=== PATIENT | female | born 1960 | race African-American/Black ===

== ENCOUNTER 2018-09-10 21:46 | Inpatient (IN) | payer OTHER | END 2018-09-14 18:32 | disposition other institution (70) | LOC: YASAS 21:46 → Y6N 23:57 ==

== ENCOUNTER 2018-09-14 18:47 | Inpatient (IN) | payer OTHER ==
[2018-09-14] MEDS ORDERED: NICOTINE POLACRILEX 2 MG GUM BUC PRN (22:11)
[2018-09-14] MEDS ORDERED: MENTHOL/PHENOL 1 EACH UD MM PRN (22:11)
[2018-09-14] MEDS ORDERED: ACETAMINOPHEN 325 MG TABLET (FP) PO PRN (22:11)
[2018-09-14] MEDS ORDERED: P-EPHED 60MG/TRIPROLIDI 2.5MG TABLET PO PRN (22:11)
[2018-09-14] MEDS ORDERED: guaiFENesin 200 MG/10 ML 10 ML UNIT-DOSE CUPS PO PRN (22:11)
[2018-09-14] MEDS ORDERED: IBUPROFEN 400 MG TABLET (FP) PO PRN (22:11)
[2018-09-14] MEDS ORDERED: MAGNESIUM HYDROX 2400MG/30ML ORAL SUSPENSION 30 ML CUP PO PRN (22:11)
[2018-09-14] MEDS ORDERED: LOPERAMIDE HCL 2 MG CAPSULE PO PRN (22:11)
[2018-09-14] MEDS ORDERED: MAGNESIUM CITRATE 300 ML BOTTLE PO PRN (22:11)
--- NOTE | 2018-09-14 22:11 | HP ---
[facility] Rehab Assess/Revision - Admission History Admitted to Rehab from: [address] Date of Admission to Rehab: 09/14/2018 - Findings Detox History & Physical reviewed: Yes Concur with findings: Yes Comments/Additional Findings: transfer from [facility] for continuation of care. Inpatient Rehab Admission - Rehab Decision to Admit Inpatient rehab admission?: Yes - Initial Determination Are CD services needed?: Yes Free of communicable disease: Yes Not in need of hospitalization: Yes - Rehab Admission Criteria Previous failed treatment: Yes Poor recovery environment: Yes Comorbidities: Yes Lacks judgement: No Patient is meeting Inpatient Rehab admission criteria:: Yes
[2018-09-14] MEDS ORDERED: ARIPiprazole 10 MG TABLET PO ONE (22:15)
[2018-09-14] MEDS ORDERED: INSULIN (NOVOLOG) ASPART 100 UNITS/ML 10ML VIAL ONE (22:27)
[2018-09-14] MEDS: INSULIN SLIDING SCALE (NOVOLOG) 1 VIAL SQ SCH (22:27)
[2018-09-15] MEDS ORDERED: PT OWN MED DRAWER 7, Y5N ONE (05:54)
[2018-09-15] MEDS: sitaGLIPtin PHOSPHATE 100 MG TABLET (FP) PO SCH (07:12)
--- NOTE | 2018-09-15 09:49 | CONSULT ---
[facility] Psychiatric Consult - Data Date of interview: 09/15/18 Admission source: [facility] Identifying data: Patient is a 58 year old single female, father of three, unemployed, and currently domiciled. This is one of multiple Substance Abuse History: Smoking Cessation. Smoking history: Current every day smoker. Have you smoked in the past 12 months: Yes. Aproximately how many cigarettes per day: 4. Hx Chewing Tobacco Use: No. Initiated information on smoking cessation: Yes. 'Breaking Loose' booklet given: 09/11/18. - Substance & Tx. History. Hx Alcohol Use: Yes. Hx Substance Use: Yes. Substance Use Type : Alcohol, Cocaine. Hx Substance Use Treatment: Yes ([facility]). - Substances abused. Alcohol. Substance route: Oral. Frequency: Daily. Amount used: liquor- 1 pint, beer- 1 six pack. Age of first use: 12. Date of last use: 09/09/18. Cocaine. Frequency: Daily. Amount used: $80. Age of first use: 18. Date of last use: 09/10/18. Crack. Substance route: Smoking. Frequency: Daily. Amount used: $80 worth. Age of first use: 18. Date of last use: 09/09/18 Medical History: Significant for bronchial asthma, dyslipidemia, type 2 diabetes mellitus, history of cerebrovascular accident and surgeries( thyroidectomy, total hysterectomy for uterine cancer). Psychiatric History: Patient's first psychiatric contact was in 1994 after she saw an outpatient psychiatrist due to mood dyregulation and was than started on zoloft. Ms. Campbell reports history of three psychiatric hospitalizations ( [facility] in [place] [facility], [facility] and [facility]). States all three hospitalizations were due to suicide attempts. Ms. Campbell is currently provided with outpatient psychiatric care at [facility] and is prescribed Abilify 20mg + Prozac 10mg + Trazodone 300mg (confirmed with external records). Patient was lethargic while in detox and therefore trazodone was held. Today patient presents as mildly fatigue but is coherent, alert and oriented X3. She reports difficulty sleeping and is requesting to resume trazodone. Physical/Sexual Abuse/Trauma History: denies. Mental Status Exam - Mental Status Exam Alert and Oriented to: Time, Place, Person Cognitive Function: Good Patient Appearance: Well Groomed Mood: Euthymic Affect: Mood Congruent Patient Behavior: Fatigued (states she is fatigue due to lack of sleep. ) Speech Pattern: Appropriate Voice Loudness: Moderately Soft/Quiet Thought Process: Goal Oriented Thought Disorder: Not Present Hallucinations: Denies Suicidal Ideation: Denies Homicidal Ideation: Denies Insight/Judgement: Poor Sleep: Poorly Appetite: Fair Muscle strength/Tone: Normal Gait/Station: Normal Psychiatric Findings - Problem List ([place] 1, 2,3) (1) Alcohol dependence Current Visit: Yes Status: Acute (2) Substance induced mood disorder Current Visit: Yes Status: Acute (3) Substance-induced sleep disorder Current Visit: Yes Status: Acute (4) Bipolar II disorder Current Visit: Yes Status: Chronic (5) Cocaine dependence Current Visit: Yes Status: Chronic Qualifiers: Substance use status: uncomplicated Qualified Code(s): F14.20 - Cocaine dependence, uncomplicated (6) Nicotine dependence Current Visit: Yes Status: Chronic Qualifiers: Nicotine product type: cigarettes Substance use status: uncomplicated Qualified Code(s): F17.210 - Nicotine dependence, cigarettes, uncomplicated - Initial Treatment Plan Initial Treatment Plan: Psychoeducation provided. Rehab in progress. Will continue Abilify 20mg + Prozac 10mg. Will order Trazodone 100mg. Benefits and side effects discussed. Verbal consent given.
[2018-09-15] MEDS ORDERED: FLUoxetine HCL 10 MG CAPSULE (FP) PO SCH (10:00)
[2018-09-15] MEDS: NICOTINE 14 MG/24 HOURS TOPICAL PATCH TD SCH (10:07)
[2018-09-15] MEDS: PRENATAL VITAMINS W/ FOLIC ACID TABLET (FP) PO SCH (10:07)
[2018-09-15] MEDS: FLUoxetine HCL 10 MG CAPSULE (FP) PO SCH (11:00)
[2018-09-15] MEDS ORDERED: INSULIN (NOVOLOG) ASPART 100 UNITS/ML 10ML VIAL ONE (11:32)
[2018-09-15] MEDS: INSULIN SLIDING SCALE (NOVOLOG) 1 VIAL SQ SCH ×3 (12:10→21:21)
[2018-09-15] MEDS: traZODone HCL 100 MG TABLET (FP) PO SCH (21:14)
[2018-09-15] MEDS: THIAMINE HCL 100 MG TABLET (FP) PO SCH (21:14)
[2018-09-15] MEDS: ARIPiprazole 10 MG TABLET PO SCH (21:15)
[2018-09-16] MEDS: INSULIN SLIDING SCALE (NOVOLOG) 1 VIAL SQ SCH ×4 (07:39→21:23)
[2018-09-16] MEDS: sitaGLIPtin PHOSPHATE 100 MG TABLET (FP) PO SCH (07:40)
[2018-09-16] MEDS ORDERED: INSULIN (NOVOLOG) ASPART 100 UNITS/ML 10ML VIAL ONE ×2 (08:00→11:36)
[2018-09-16] MEDS ORDERED: FLUoxetine HCL 10 MG CAPSULE (FP) PO SCH (10:00)
[2018-09-16] MEDS: PRENATAL VITAMINS W/ FOLIC ACID TABLET (FP) PO SCH (10:21)
[2018-09-16] MEDS: NICOTINE 14 MG/24 HOURS TOPICAL PATCH TD SCH (10:21)
[2018-09-16] MEDS: FLUoxetine HCL 10 MG CAPSULE (FP) PO SCH (10:21)
[2018-09-16] MEDS: MAG HYDROX/AL HYDROX/SIMETH 30 ML UNIT-DOSE CUP PO PRN (17:23)
[2018-09-16] MEDS ORDERED: ONDANSETRON *ODT* 4 MG TABLET SL PRN (17:38)
[2018-09-16] MEDS: MELATONIN 5 MG TABLETS PO PRN (21:21)
[2018-09-16] MEDS: THIAMINE HCL 100 MG TABLET (FP) PO SCH (21:21)
[2018-09-16] MEDS: ARIPiprazole 10 MG TABLET PO SCH (21:24)
[2018-09-16] MEDS: traZODone HCL 100 MG TABLET (FP) PO SCH (21:24)
[2018-09-17] MEDS: sitaGLIPtin PHOSPHATE 100 MG TABLET (FP) PO SCH (07:49)
[2018-09-17] MEDS: INSULIN SLIDING SCALE (NOVOLOG) 1 VIAL SQ SCH ×4 (07:49→21:06)
[2018-09-17] MEDS: NICOTINE 14 MG/24 HOURS TOPICAL PATCH TD SCH (09:05)
[2018-09-17] MEDS: PRENATAL VITAMINS W/ FOLIC ACID TABLET (FP) PO SCH (09:06)
[2018-09-17] MEDS: FLUoxetine HCL 10 MG CAPSULE (FP) PO SCH (09:06)
[2018-09-17] MEDS ORDERED: INSULIN (NOVOLOG) ASPART 100 UNITS/ML 10ML VIAL ONE (16:39)
[2018-09-17] MEDS: ARIPiprazole 10 MG TABLET PO SCH (21:07)
[2018-09-17] MEDS: THIAMINE HCL 100 MG TABLET (FP) PO SCH (21:07)
[2018-09-17] MEDS: traZODone HCL 100 MG TABLET (FP) PO SCH (21:07)
[2018-09-18] MEDS: INSULIN SLIDING SCALE (NOVOLOG) 1 VIAL SQ SCH ×4 (06:25→21:32)
[2018-09-18] MEDS: sitaGLIPtin PHOSPHATE 100 MG TABLET (FP) PO SCH (06:26)
[2018-09-18] MEDS: PRENATAL VITAMINS W/ FOLIC ACID TABLET (FP) PO SCH (09:08)
[2018-09-18] MEDS: NICOTINE 14 MG/24 HOURS TOPICAL PATCH TD SCH (09:08)
[2018-09-18] MEDS: FLUoxetine HCL 10 MG CAPSULE (FP) PO SCH (09:08)
[2018-09-18] MEDS ORDERED: INSULIN (NOVOLOG) ASPART 100 UNITS/ML 10ML VIAL ONE (12:03)
[2018-09-18] MEDS: THIAMINE HCL 100 MG TABLET (FP) PO SCH (21:29)
[2018-09-18] MEDS: ARIPiprazole 10 MG TABLET PO SCH (21:30)
[2018-09-18] MEDS: traZODone HCL 100 MG TABLET (FP) PO SCH (21:30)
[2018-09-18] MEDS ORDERED: PT OWN MED DRAWER 7, Y5N ONE (22:51)
[2018-09-19] MEDS ORDERED: PT OWN MED DRAWER 7, Y5N ONE ×2 (05:48→21:13)
[2018-09-19] MEDS: sitaGLIPtin PHOSPHATE 100 MG TABLET (FP) PO SCH (06:31)
[2018-09-19] MEDS: INSULIN SLIDING SCALE (NOVOLOG) 1 VIAL SQ SCH ×3 (06:31→16:59)
[2018-09-19] MEDS: PRENATAL VITAMINS W/ FOLIC ACID TABLET (FP) PO SCH (09:50)
[2018-09-19] MEDS: FLUoxetine HCL 10 MG CAPSULE (FP) PO SCH (09:50)
[2018-09-19] MEDS: NICOTINE 14 MG/24 HOURS TOPICAL PATCH TD SCH (09:50)
--- NOTE | 2018-09-19 13:47 | PN ---
[facility] Progress Note Note: Patient does not want BGM 4x/day. States she only does it before breakfast and before lunch when she is home. BGM changed to before meals only, insulin coverage increased. Will continue to monitor. Laboratory Last Values POC Glucometer 191 UNITS (80-120) 09/19/18 11:37 Laboratory 09/14/18 09/15/18 09/15/18 22:26 06:56 11:28 POC Glucometer 201 UNITS UNITS 199 UNITS UNITS 240 UNITS UNITS (80-120) (80-120) (80-120) 09/15/18 09/15/18 09/16/18 17:15 21:20 07:38 POC Glucometer 237 UNITS UNITS 222 UNITS UNITS 207 UNITS UNITS (80-120) (80-120) (80-120) 09/16/18 09/16/18 09/16/18 11:34 16:54 21:22 POC Glucometer 262 UNITS UNITS 230 UNITS UNITS 163 UNITS UNITS (80-120) (80-120) (80-120) 09/17/18 09/17/18 09/17/18 07:48 11:51 16:38 POC Glucometer 172 UNITS UNITS 196 UNITS UNITS 225 UNITS UNITS (80-120) (80-120) (80-120) 09/17/18 09/18/18 09/18/18 21:04 06:25 11:49 POC Glucometer 225 UNITS UNITS 118 UNITS UNITS 242 UNITS UNITS (80-120) (80-120) (80-120) 09/18/18 09/18/18 09/19/18 17:09 21:31 06:29 POC Glucometer 166 UNITS UNITS 159 UNITS UNITS 179 UNITS UNITS (80-120) (80-120) (80-120) 09/19/18 11:37 POC Glucometer 191 UNITS UNITS (80-120)
[2018-09-19] MEDS: traZODone HCL 100 MG TABLET (FP) PO SCH (21:37)
[2018-09-19] MEDS: THIAMINE HCL 100 MG TABLET (FP) PO SCH (21:37)
[2018-09-19] MEDS: ARIPiprazole 10 MG TABLET PO SCH (21:37)
[2018-09-20] MEDS: sitaGLIPtin PHOSPHATE 100 MG TABLET (FP) PO SCH (06:33)
[2018-09-20] MEDS: INSULIN SLIDING SCALE (NOVOLOG) 1 VIAL SQ SCH ×3 (06:36→17:08)
[2018-09-20] MEDS: PRENATAL VITAMINS W/ FOLIC ACID TABLET (FP) PO SCH (09:01)
[2018-09-20] MEDS: FLUoxetine HCL 10 MG CAPSULE (FP) PO SCH (09:01)
[2018-09-20] MEDS: NICOTINE 14 MG/24 HOURS TOPICAL PATCH TD SCH (09:02)
[2018-09-20] MEDS ORDERED: FLUCONAZOLE 50 MG TABLET PO ONE (10:30)
--- NOTE | 2018-09-20 10:30 | PN ---
[facility] Progress Note Note: Client c/o genital rash and yeast infection. Client is diabetic. FS recently reduced to 3x a day at patient request. However, insulin coverage increased. PLAN: treated yeast infection empirically with diflucan and nystatin cream for rash. Explained to client the need to have tight control on Blood glucose so that although fingersticks were reduced, it was important to cover blood glucose that wa > 150. Client understood and accepted teaching, however, maintains her right to refuse insulin at any time. Explained the consequences of refusing insulin and client understood teaching. Will continue to monitor. Also discussed with client reducing intake of simple carbohydrates. Client agreed. Laboratory Last Values POC Glucometer 171 UNITS (80-120) 09/20/18 06:32 Laboratory Tests 09/14/18 09/15/18 09/15/18 22:26 06:56 11:28 POC Glucometer 201 199 240 09/15/18 09/15/18 09/16/18 17:15 21:20 07:38 POC Glucometer 237 222 207 09/16/18 09/16/18 09/16/18 11:34 16:54 21:22 POC Glucometer 262 230 163 09/17/18 09/17/18 09/17/18 07:48 11:51 16:38 POC Glucometer 172 196 225 09/17/18 09/18/18 09/18/18 21:04 06:25 11:49 POC Glucometer 225 118 242 09/18/18 09/18/18 09/19/18 17:09 21:31 06:29 POC Glucometer 166 159 179 09/19/18 09/19/18 09/20/18 11:37 16:56 06:32 POC Glucometer 191 166 171
[2018-09-20] MEDS ORDERED: INSULIN (NOVOLOG) ASPART 100 UNITS/ML 10ML VIAL ONE ×2 (11:45→16:33)
[2018-09-20] MEDS: traZODone HCL 100 MG TABLET (FP) PO SCH (21:37)
[2018-09-20] MEDS: THIAMINE HCL 100 MG TABLET (FP) PO SCH (21:37)
[2018-09-20] MEDS: ARIPiprazole 10 MG TABLET PO SCH (21:37)
[2018-09-20] MEDS: NYSTATIN 100,000 UNIT/GM TOPICAL CREAM 15 GM TUBE TP SCH (21:38)
[2018-09-21] MEDS ORDERED: PT OWN MED DRAWER 7, Y5N ONE ×3 (03:12→21:34)
[2018-09-21] MEDS: sitaGLIPtin PHOSPHATE 100 MG TABLET (FP) PO SCH (06:38)
[2018-09-21] MEDS: INSULIN SLIDING SCALE (NOVOLOG) 1 VIAL SQ SCH ×3 (06:39→18:01)
[2018-09-21] MEDS: NYSTATIN 100,000 UNIT/GM TOPICAL CREAM 15 GM TUBE TP SCH ×2 (10:08→21:34)
[2018-09-21] MEDS: FLUoxetine HCL 10 MG CAPSULE (FP) PO SCH (10:08)
[2018-09-21] MEDS: PRENATAL VITAMINS W/ FOLIC ACID TABLET (FP) PO SCH (10:08)
[2018-09-21] MEDS: NICOTINE 14 MG/24 HOURS TOPICAL PATCH TD SCH (10:09)
--- NOTE | 2018-09-21 11:34 | PN ---
S Progress Note Note: insulin coverage tid ac bgm can not be ordered as tid ac but ac see physician instruction bgm tid ac bgm average below 200 over the past few days patient reports doing well with the diabetes management
[2018-09-21] MEDS: THIAMINE HCL 100 MG TABLET (FP) PO SCH (21:32)
[2018-09-21] MEDS: traZODone HCL 100 MG TABLET (FP) PO SCH (21:32)
[2018-09-21] MEDS: ARIPiprazole 10 MG TABLET PO SCH (21:32)
[2018-09-22] MEDS: sitaGLIPtin PHOSPHATE 100 MG TABLET (FP) PO SCH (06:35)
[2018-09-22] MEDS: INSULIN SLIDING SCALE (NOVOLOG) 1 VIAL SQ SCH ×3 (08:02→16:44)
[2018-09-22] MEDS ORDERED: PT OWN MED DRAWER 7, Y5N ONE (08:45)
[2018-09-22] MEDS: NICOTINE 14 MG/24 HOURS TOPICAL PATCH TD SCH (09:44)
[2018-09-22] MEDS: PRENATAL VITAMINS W/ FOLIC ACID TABLET (FP) PO SCH (09:44)
[2018-09-22] MEDS: NYSTATIN 100,000 UNIT/GM TOPICAL CREAM 15 GM TUBE TP SCH ×2 (09:44→21:02)
[2018-09-22] MEDS: FLUoxetine HCL 10 MG CAPSULE (FP) PO SCH (09:44)
--- NOTE | 2018-09-22 10:13 | PN ---
[facility] Progress Note Note: Laboratory Last Values Potassium 4.0 mmol/L (3.5-5.1) 09/22/18 08:20 POC Glucometer 136 UNITS (80-120) 09/22/18 06:34 Lab Results Potassium 4.0 mmol/L (3.5-5.1) 09/22/18 08:20 lab noted [id number] pending
[2018-09-22] MEDS: MELATONIN 5 MG TABLETS PO PRN (21:02)
[2018-09-22] MEDS: traZODone HCL 100 MG TABLET (FP) PO SCH (21:02)
[2018-09-22] MEDS: ARIPiprazole 10 MG TABLET PO SCH (21:02)
[2018-09-22] MEDS: THIAMINE HCL 100 MG TABLET (FP) PO SCH (21:02)
[2018-09-23] MEDS: sitaGLIPtin PHOSPHATE 100 MG TABLET (FP) PO SCH (06:49)
[2018-09-23] MEDS: INSULIN SLIDING SCALE (NOVOLOG) 1 VIAL SQ SCH ×3 (06:50→16:55)
[2018-09-23] MEDS ORDERED: PT OWN MED DRAWER 7, Y5N ONE (08:52)
[2018-09-23] MEDS: PRENATAL VITAMINS W/ FOLIC ACID TABLET (FP) PO SCH (09:57)
[2018-09-23] MEDS: NICOTINE 14 MG/24 HOURS TOPICAL PATCH TD SCH (09:57)
[2018-09-23] MEDS: FLUoxetine HCL 10 MG CAPSULE (FP) PO SCH (09:57)
[2018-09-23] MEDS: NYSTATIN 100,000 UNIT/GM TOPICAL CREAM 15 GM TUBE TP SCH ×2 (09:57→21:10)
--- NOTE | 2018-09-23 16:02 | PN ---
Psychiatric Progress Note Vital Signs: Vital Signs Period Temp Pulse Resp BP Sys/De La Paz Pulse Ox Last 24 Hr 98.1 F 78-86 18-18 98-110/65-75 Date of Session: 09/23/18 Chief Complaint:: " I still have problem sleeping at night. My trazodone is too low ". HPI: Called to address this patient's complaint of refractory insomnia and to adjust dose of trazodone. Hospital course is otherwise benign. Patient is doing well. ROS: Unremarkable. Current Medications: Active Medications Generic Name Dose Route Start Last Admin Trade Name Freq PRN Reason Stop Dose Admin Acetaminophen 650 mg 09/14/18 22:11 Tylenol - PO Q4H PRN FEVER Al Hydroxide/Mg Hydroxide 30 ml 09/14/18 22:11 09/16/18 17:23 Mylanta Oral Suspension - PO 30 ml Q6H PRN Administration DYSPEPSIA Aripiprazole 20 mg 09/15/18 22:00 09/22/18 21:02 Abilify PO 20 mg HS FELA Administration Eucalyptus/Menthol/Phenol/Sorbitol 1 each 09/14/18 22:11 Cepastat Lozenge - MM Q4H PRN SORE THROAT Fluoxetine HCl 10 mg 09/15/18 10:15 09/23/18 09:57 Prozac - PO 10 mg DAILY FELA Administration Guaifenesin 10 ml 09/14/18 22:11 Robitussin - PO Q6H PRN COUGH Ibuprofen 400 mg 09/14/18 22:11 Motrin - PO Q6H PRN Pain Level 4-6 Insulin Aspart 1 vial 09/19/18 16:30 09/23/18 11:59 Novolog Vial Sliding Scale - SQ Not Given [facility] Protocol Loperamide HCl 4 mg 09/14/18 22:11 Imodium - PO Q6H PRN DIARRHEA Magnesium Citrate 300 ml 09/14/18 22:11 09/17/18 09:08 Citroma - PO 300 ml Q48H PRN Administration CONSTIPATION Magnesium Hydroxide 30 ml 09/14/18 22:11 Milk Of Magnesia - PO DAILY PRN CONSTIPATION Melatonin 5 mg 09/14/18 22:00 09/22/18 21:02 Melatonin PO 5 mg HS PRN Administration INSOMNIA Metformin HCl 850 mg 09/15/18 16:30 06/08/19 06:49 Glucophage - PO 850 mg BID@0700,1630 FELA Administration Nicotine 14 mg 09/15/18 10:00 09/23/18 09:57 Nicoderm Patch - TD Not Given DAILY FELA Nicotine Polacrilex 2 mg 09/14/18 22:11 Nicorette Gum - BUC Q2H PRN NICOTINE REPLACEMENT RX Nystatin 1 applic 09/20/18 22:00 09/23/18 09:57 Mycostatin Cream - TP Not Given BID FELA Ondansetron HCl 8 mg 09/16/18 17:38 09/16/18 17:49 Zofran Odt - SL 8 mg Q8H PRN Administration NAUSEA Multivit/Folic Acid/Iron 1 tab 09/15/18 10:00 09/23/18 09:57 Vitamins (Sjr) - PO 1 tab DAILY FELA Administration Pseudoephedrine/Triprolidine 1 combo 09/14/18 22:11 Actifed - PO TID PRN NASAL CONGESTION Sitagliptin Phosphate 100 mg 09/15/18 07:00 09/23/18 06:49 Januvia - PO 100 mg DAILY@0700 FELA Administration Thiamine HCl 100 mg 09/15/18 22:00 09/22/18 21:02 Vitamin B1 - PO 100 mg HS FELA Administration Trazodone HCl 100 mg 09/15/18 22:00 09/22/18 21:02 Desyrel - PO 100 mg HS FELA Administration Medication(s) Change(s): Patient remarks that she was maintained on 300 mg of trazodone in the community. Ms Campbell states that " 100 mg of trazodone is not doing anything for my insomnia ". Intervention : trazodone is raised to 150 mg po hs. Side effects/benefits discussed with patient. She is agreeable to this plan of care. Current Side Effect: No Lab tests ordered: No Lab tests reviewed: Yes Provider note:: Chart reviewed. Met with the patient. Complaint is validated. Medications reviewed. Multidisciplinary notes are appreciated. Pharmacy claims are surveyed (noted refills for trazodone 150 mg Tab # 60/30 days on 09/06/18 at [facility]). Patient is a reliable historian. Sleep hygiene discussed. Trazodone is raised to 150 mg po hs with patient' s verbal consent. Stable mental status. Mental Status Exam - Mental Status Exam Alert and Oriented to: Time, Place, Person Cognitive Function: Good Patient Appearance: Well Groomed Mood: Anxious Affect: Appropriate, Normal Range Patient Behavior: Appropriate, Cooperative Speech Pattern: Clear, Appropriate Voice Loudness: Normal Thought Process: Intact, Goal Oriented Thought Disorder: Not Present Hallucinations: Denies Suicidal Ideation: Denies Homicidal Ideation: Denies Insight/Judgement: Fair Sleep: Poorly, Difficulty falling asleep Appetite: Good Gait/Station: Normal Psychiatric Treatment Plan - Problem List (1) Alcohol dependence Current Visit: Yes (2) Cocaine dependence Current Visit: Yes Qualifiers: Substance use status: uncomplicated Qualified Code(s): F14.20 - Cocaine dependence, uncomplicated (3) Nicotine dependence Current Visit: Yes Qualifiers: Nicotine product type: cigarettes Substance use status: uncomplicated Qualified Code(s): F17.210 - Nicotine dependence, cigarettes, uncomplicated (4) Substance induced mood disorder Current Visit: Yes (5) Bipolar II disorder Current Visit: Yes (6) Insomnia Current Visit: Yes
[2018-09-23] MEDS ORDERED: INSULIN (NOVOLOG) ASPART 100 UNITS/ML 10ML VIAL ONE (16:41)
[2018-09-23] MEDS: ARIPiprazole 10 MG TABLET PO SCH (21:08)
[2018-09-23] MEDS: THIAMINE HCL 100 MG TABLET (FP) PO SCH (21:08)
[2018-09-23] MEDS: traZODone HCL 50 MG TABLET (FP) PO SCH (21:11)
[2018-09-24] MEDS: sitaGLIPtin PHOSPHATE 100 MG TABLET (FP) PO SCH (06:41)
[2018-09-24] MEDS: INSULIN SLIDING SCALE (NOVOLOG) 1 VIAL SQ SCH ×3 (08:19→17:20)
[2018-09-24] MEDS: PRENATAL VITAMINS W/ FOLIC ACID TABLET (FP) PO SCH (09:54)
[2018-09-24] MEDS: FLUoxetine HCL 10 MG CAPSULE (FP) PO SCH (09:54)
[2018-09-24] MEDS: NYSTATIN 100,000 UNIT/GM TOPICAL CREAM 15 GM TUBE TP SCH ×2 (09:54→21:15)
[2018-09-24] MEDS: NICOTINE 14 MG/24 HOURS TOPICAL PATCH TD SCH (09:54)
[2018-09-24] MEDS: ARIPiprazole 10 MG TABLET PO SCH (21:14)
[2018-09-24] MEDS: THIAMINE HCL 100 MG TABLET (FP) PO SCH (21:14)
[2018-09-24] MEDS: traZODone HCL 50 MG TABLET (FP) PO SCH (21:15)
[2018-09-25] MEDS: sitaGLIPtin PHOSPHATE 100 MG TABLET (FP) PO SCH (06:23)
[2018-09-25] MEDS: INSULIN SLIDING SCALE (NOVOLOG) 1 VIAL SQ SCH ×2 (06:24→17:11)
[2018-09-25] MEDS: NYSTATIN 100,000 UNIT/GM TOPICAL CREAM 15 GM TUBE TP SCH ×2 (09:55→21:09)
[2018-09-25] MEDS: PRENATAL VITAMINS W/ FOLIC ACID TABLET (FP) PO SCH (09:56)
[2018-09-25] MEDS: FLUoxetine HCL 10 MG CAPSULE (FP) PO SCH (09:56)
[2018-09-25] MEDS: NICOTINE 14 MG/24 HOURS TOPICAL PATCH TD SCH (09:56)
--- NOTE | 2018-09-25 10:13 | PN ---
[facility] Progress Note Note: BGM < 150; decreased fingersticks to twice a day. Laboratory Last Values Potassium 4.0 mmol/L (3.5-5.1) 09/22/18 08:20 POC Glucometer 138 UNITS (80-120) 09/25/18 06:23 Hemoglobin A1c % 12.3 % (4.2-6.3) H 09/22/18 08:20
[2018-09-25] MEDS ORDERED: INSULIN (NOVOLOG) ASPART 100 UNITS/ML 10ML VIAL ONE (16:55)
[2018-09-25] MEDS: ARIPiprazole 10 MG TABLET PO SCH (21:08)
[2018-09-25] MEDS: traZODone HCL 50 MG TABLET (FP) PO SCH (21:08)
[2018-09-25] MEDS: THIAMINE HCL 100 MG TABLET (FP) PO SCH (21:08)
[2018-09-26] MEDS ORDERED: PT OWN MED DRAWER 7, Y5N ONE ×3 (03:24→19:14)
[2018-09-26] MEDS: INSULIN SLIDING SCALE (NOVOLOG) 1 VIAL SQ SCH ×2 (06:23→16:55)
[2018-09-26] MEDS: sitaGLIPtin PHOSPHATE 100 MG TABLET (FP) PO SCH (06:24)
[2018-09-26] MEDS: FLUoxetine HCL 10 MG CAPSULE (FP) PO SCH (09:10)
[2018-09-26] MEDS: PRENATAL VITAMINS W/ FOLIC ACID TABLET (FP) PO SCH (09:10)
[2018-09-26] MEDS: NICOTINE 14 MG/24 HOURS TOPICAL PATCH TD SCH (09:11)
[2018-09-26] MEDS: NYSTATIN 100,000 UNIT/GM TOPICAL CREAM 15 GM TUBE TP SCH ×2 (09:11→21:07)
[2018-09-26] MEDS: THIAMINE HCL 100 MG TABLET (FP) PO SCH (21:06)
[2018-09-26] MEDS: traZODone HCL 50 MG TABLET (FP) PO SCH (21:06)
[2018-09-26] MEDS: ARIPiprazole 10 MG TABLET PO SCH (21:07)
[2018-09-27] MEDS ORDERED: PT OWN MED DRAWER 7, Y5N ONE (03:28)
[2018-09-27] MEDS: sitaGLIPtin PHOSPHATE 100 MG TABLET (FP) PO SCH (06:20)
[2018-09-27] MEDS: INSULIN SLIDING SCALE (NOVOLOG) 1 VIAL SQ SCH ×2 (06:21→16:51)
[2018-09-27] MEDS: NYSTATIN 100,000 UNIT/GM TOPICAL CREAM 15 GM TUBE TP SCH ×2 (09:51→21:12)
[2018-09-27] MEDS: FLUoxetine HCL 10 MG CAPSULE (FP) PO SCH (09:51)
[2018-09-27] MEDS: NICOTINE 14 MG/24 HOURS TOPICAL PATCH TD SCH (09:51)
[2018-09-27] MEDS: PRENATAL VITAMINS W/ FOLIC ACID TABLET (FP) PO SCH (09:51)
[2018-09-27] MEDS ORDERED: INSULIN (NOVOLOG) ASPART 100 UNITS/ML 10ML VIAL ONE (16:36)
[2018-09-27] MEDS: THIAMINE HCL 100 MG TABLET (FP) PO SCH (21:11)
[2018-09-27] MEDS: ARIPiprazole 10 MG TABLET PO SCH (21:11)
[2018-09-27] MEDS: traZODone HCL 50 MG TABLET (FP) PO SCH (21:11)
[2018-09-28] MEDS: sitaGLIPtin PHOSPHATE 100 MG TABLET (FP) PO SCH (06:16)
[2018-09-28] MEDS: INSULIN SLIDING SCALE (NOVOLOG) 1 VIAL SQ SCH ×2 (06:17→16:43)
[2018-09-28] MEDS: NICOTINE 14 MG/24 HOURS TOPICAL PATCH TD SCH (09:10)
[2018-09-28] MEDS: FLUoxetine HCL 10 MG CAPSULE (FP) PO SCH (09:10)
[2018-09-28] MEDS: MAG HYDROX/AL HYDROX/SIMETH 30 ML UNIT-DOSE CUP PO PRN (09:10)
[2018-09-28] MEDS: PRENATAL VITAMINS W/ FOLIC ACID TABLET (FP) PO SCH (09:10)
[2018-09-28] MEDS: NYSTATIN 100,000 UNIT/GM TOPICAL CREAM 15 GM TUBE TP SCH ×2 (09:10→21:14)
--- NOTE | 2018-09-28 14:05 | PN ---
[facility] Progress Note Note: Itchy Rash on chest. scattered raised bumps. Benadryl cream ordered. CBC, BMP 09/22/18 08:20 Vital Signs Period Temp Pulse Resp BP Sys/De La Paz Pulse Ox Last 24 Hr 98.4 F 76 18-18 118/76
[2018-09-28] MEDS: ARIPiprazole 10 MG TABLET PO SCH (21:10)
[2018-09-28] MEDS: THIAMINE HCL 100 MG TABLET (FP) PO SCH (21:10)
[2018-09-28] MEDS: traZODone HCL 50 MG TABLET (FP) PO SCH (21:11)
[2018-09-29] MEDS: sitaGLIPtin PHOSPHATE 100 MG TABLET (FP) PO SCH (06:38)
[2018-09-29] MEDS: INSULIN SLIDING SCALE (NOVOLOG) 1 VIAL SQ SCH ×2 (07:21→16:50)
[2018-09-29] MEDS: FLUoxetine HCL 10 MG CAPSULE (FP) PO SCH (10:18)
[2018-09-29] MEDS: PRENATAL VITAMINS W/ FOLIC ACID TABLET (FP) PO SCH (10:18)
[2018-09-29] MEDS: NICOTINE 14 MG/24 HOURS TOPICAL PATCH TD SCH (10:19)
[2018-09-29] MEDS: NYSTATIN 100,000 UNIT/GM TOPICAL CREAM 15 GM TUBE TP SCH ×2 (10:19→21:37)
[2018-09-29] MEDS: THIAMINE HCL 100 MG TABLET (FP) PO SCH (21:35)
[2018-09-29] MEDS: ARIPiprazole 10 MG TABLET PO SCH (21:35)
[2018-09-29] MEDS: traZODone HCL 50 MG TABLET (FP) PO SCH (21:36)
[2018-09-30] MEDS: sitaGLIPtin PHOSPHATE 100 MG TABLET (FP) PO SCH (06:37)
[2018-09-30] MEDS: INSULIN SLIDING SCALE (NOVOLOG) 1 VIAL SQ SCH ×2 (06:37→17:02)
[2018-09-30] MEDS: FLUoxetine HCL 10 MG CAPSULE (FP) PO SCH (09:42)
[2018-09-30] MEDS: NICOTINE 14 MG/24 HOURS TOPICAL PATCH TD SCH (09:42)
[2018-09-30] MEDS: NYSTATIN 100,000 UNIT/GM TOPICAL CREAM 15 GM TUBE TP SCH ×2 (09:42→21:02)
[2018-09-30] MEDS: PRENATAL VITAMINS W/ FOLIC ACID TABLET (FP) PO SCH (09:42)
[2018-09-30] MEDS: ARIPiprazole 10 MG TABLET PO SCH (21:01)
[2018-09-30] MEDS: traZODone HCL 50 MG TABLET (FP) PO SCH (21:01)
[2018-09-30] MEDS: THIAMINE HCL 100 MG TABLET (FP) PO SCH (21:01)
[2018-10-01] MEDS: sitaGLIPtin PHOSPHATE 100 MG TABLET (FP) PO SCH (06:49)
[2018-10-01] MEDS: INSULIN SLIDING SCALE (NOVOLOG) 1 VIAL SQ SCH ×2 (06:50→16:26)
[2018-10-01] MEDS ORDERED: PT OWN MED DRAWER 7, Y5N ONE (08:20)
[2018-10-01] MEDS: NYSTATIN 100,000 UNIT/GM TOPICAL CREAM 15 GM TUBE TP SCH ×2 (09:30→21:25)
[2018-10-01] MEDS: PRENATAL VITAMINS W/ FOLIC ACID TABLET (FP) PO SCH (09:31)
[2018-10-01] MEDS: NICOTINE 14 MG/24 HOURS TOPICAL PATCH TD SCH (09:31)
[2018-10-01] MEDS: FLUoxetine HCL 10 MG CAPSULE (FP) PO SCH (09:31)
[2018-10-01] MEDS: MAG HYDROX/AL HYDROX/SIMETH 30 ML UNIT-DOSE CUP PO PRN (10:59)
[2018-10-01] MEDS ORDERED: INSULIN (NOVOLOG) ASPART 100 UNITS/ML 10ML VIAL ONE (16:21)
[2018-10-01] MEDS: THIAMINE HCL 100 MG TABLET (FP) PO SCH (21:23)
[2018-10-01] MEDS: ARIPiprazole 10 MG TABLET PO SCH (21:23)
[2018-10-01] MEDS: traZODone HCL 50 MG TABLET (FP) PO SCH (21:23)
[2018-10-02] MEDS: sitaGLIPtin PHOSPHATE 100 MG TABLET (FP) PO SCH (06:22)
[2018-10-02] MEDS: INSULIN SLIDING SCALE (NOVOLOG) 1 VIAL SQ SCH (06:22)
[2018-10-02 07:05] VITALS: BP 130/85; PULSE 81; TEMP 97.9
[2018-10-02] MEDS: FLUoxetine HCL 10 MG CAPSULE (FP) PO SCH (09:13)
[2018-10-02] MEDS: PRENATAL VITAMINS W/ FOLIC ACID TABLET (FP) PO SCH (09:13)
[2018-10-02] MEDS: NICOTINE 14 MG/24 HOURS TOPICAL PATCH TD SCH (09:15)
[2018-10-02] MEDS: NYSTATIN 100,000 UNIT/GM TOPICAL CREAM 15 GM TUBE TP SCH (09:15)
--- NOTE | 2018-10-02 12:12 | PN ---
[facility] Progress Note (SOAP) Subjective: PT DISCHARGED TODAY. PT MET WITH COUNSELOR AND HAS BEEN REFERRED TO [facility] FOR CD AFTERCARE. PT REPORTS SHE HAS A PRIMARY CARE WITH DR. JAFFE AT [facility] FOR MEDICAL MANAGEMENT. PT STATES SHE WILL MAKE APPOINTMENT TODAY AFTER DISCHARGE FOR MEDICAL FOLLOW UP. REPORTS HAS OWN MEDS. ALERT O X 3. DENIES S/H/I. Objective: 10/02/18 12:10 Vital Signs - 24 hr 10/02/18 10/02/18 10/02/18 00:30 03:30 07:04 Temperature 97.9 F Pulse Rate 81 Respiratory 18 18 18 Rate Blood Pressure 130/85 Laboratory Tests 09/14/18 09/15/18 09/15/18 22:26 06:56 11:28 Potassium POC Glucometer 201 199 240 Hemoglobin A1c % 09/15/18 09/15/18 09/16/18 17:15 21:20 07:38 Potassium POC Glucometer 237 222 207 Hemoglobin A1c % 09/16/18 09/16/18 09/16/18 11:34 16:54 21:22 Potassium POC Glucometer 262 230 163 Hemoglobin A1c % 09/17/18 09/17/18 09/17/18 07:48 11:51 16:38 Potassium POC Glucometer 172 196 225 Hemoglobin A1c % 09/17/18 09/18/18 09/18/18 21:04 06:25 11:49 Potassium POC Glucometer 225 118 242 Hemoglobin A1c % 09/18/18 09/18/18 09/19/18 17:09 21:31 06:29 Potassium POC Glucometer 166 159 179 Hemoglobin A1c % 09/19/18 09/19/18 09/20/18 11:37 16:56 06:32 Potassium POC Glucometer 191 166 171 Hemoglobin A1c % 09/20/18 09/20/18 09/21/18 11:42 17:07 06:37 Potassium POC Glucometer 226 127 158 Hemoglobin A1c % 09/21/18 09/21/18 09/22/18 11:43 16:59 06:34 Potassium POC Glucometer 177 125 136 Hemoglobin A1c % 09/22/18 09/22/18 09/22/18 08:20 08:20 11:53 Potassium 4.0 POC Glucometer 147 Hemoglobin A1c % 12.3 H 09/22/18 09/23/18 09/23/18 16:42 06:48 11:59 Potassium POC Glucometer 160 108 168 Hemoglobin A1c % 09/23/18 09/24/18 09/24/18 16:54 06:41 11:56 Potassium POC Glucometer 166 122 122 Hemoglobin A1c % 09/24/18 09/25/18 09/25/18 17:18 06:23 17:08 Potassium POC Glucometer 129 138 131 Hemoglobin A1c % 09/26/18 09/26/18 09/27/18 06:23 16:54 06:20 Potassium POC Glucometer 105 132 163 Hemoglobin A1c % 09/27/18 09/28/18 09/28/18 16:50 06:16 16:42 Potassium POC Glucometer 126 145 178 Hemoglobin A1c % 09/29/18 09/29/18 09/30/18 06:37 16:48 06:36 Potassium POC Glucometer 115 91 117 Hemoglobin A1c % 09/30/18 10/01/18 10/01/18 16:56 06:48 16:23 Potassium POC Glucometer 161 126 115 Hemoglobin A1c % 10/02/18 06:21 Potassium POC Glucometer 101 Hemoglobin A1c % Home Medications Medication Instructions Recorded Sitagliptin Phosphate [Januvia] 1 tab PO DAILY 09/11/18 metFORMIN HCL [Metformin HCl] 750 mg PO BID 09/11/18 Aripiprazole [Abilify] 20 mg PO HS 09/15/18 Fluoxetine HCl [Prozac] 10 mg PO DAILY 09/15/18 traZODone HCL [Trazodone HCl] 100 mg PO HS 09/15/18 Assessment: 10/02/18 12:11 NAD MEDICALLY STABLE Plan: D/C TODAY FOLLOW UP WITH CD AFTERCARE RECOMMENDATION. FOLLOW UP WITH DR. JAFFE FOR MEDICAL MANAGEMENT 1 WEEK AFTER DISCHARGE.
== END 2018-10-02 09:20 | disposition home or self-care (01) | DRG 895 ==
LOC: YASAS 18:47 → Y3E 18:49
PROVIDERS: ADMIT Neuromusculoskeletal Medicine & OMM; ATTEND Neuromusculoskeletal Medicine & OMM
PROC: HZ42ZZZ Group Counseling for Substance Abuse Treatment, Cognitive-Behavioral (ICD-10-PCS; principal; 2018-09-14)
DX: F10.20 Alcohol dependence, uncomplicated (principal); F14.20 Cocaine dependence, uncomplicated; F19.282 Other psychoactive substance dependence with psychoactive substance-induced sleep disorder; F31.81 Bipolar II disorder; F17.210 Nicotine dependence, cigarettes, uncomplicated; F19.24 Other psychoactive substance dependence with psychoactive substance-induced mood disorder; E11.9 Type 2 diabetes mellitus without complications; J45.909 Unspecified asthma, uncomplicated; K21.9 Gastro-esophageal reflux disease without esophagitis; E78.5 Hyperlipidemia, unspecified; R21 Rash and other nonspecific skin eruption; G47.00 Insomnia, unspecified; B37.3 Candidiasis of vulva and vagina; Z86.73 Personal history of transient ischemic attack (TIA), and cerebral infarction without residual deficits; Z79.84 Long term (current) use of oral hypoglycemic drugs
CPT/HCPCS: 36415; 82962; 83036; 84132; Q0162

== ENCOUNTER 2019-12-27 12:06 | Inpatient (IN) | payer OTHER ==
--- NOTE | 2019-12-27 12:29 | [facility].RME ---
Substance Use & Tx History - Substance Use History Barbiturate Substance amount: 2beers 12 oz Frequency of use: Daily Substance route: Oral Date of Last Use: 12/26/19 Cocaine-Crack Substance amount: $100 Frequency of use: Daily Substance route: Smoking Date of Last Use: 12/26/19 Marijuana/Hashish Substance amount: 1 joint Frequency of use: Daily Substance route: Smoking Date of Last Use: 12/23/19 Nicotine Substance amount: 1/2 pack Frequency of use: Daily Substance route: Smoking Date of Last Use: 12/26/19 Physical/Psych/Mental Status - Behavior General Behavior: Increased activity (restlessness, agitation) Eye Contact: Normal - Cooperativeness Cooperativeness: Cooperative - Thinking Thought Processes: Tight, Logical, Goal Directed - Physical Health Problems Is patient presently having any pain?: No Does patient presently have any injuries (include location): No Does patient currently have a fever: No Is patient : No CIWA Nausea/Vomitin Muscle Tremors: 4-Moderate,w/Arms Extend Anxiety: 4-Mod. Anxious/Guarded Agitation: 4-Moderately Restless Paroxysmal Sweats: 1-Minimal Palms Moist Orientation: 0-Oriented Tacttile Disturbances: 3-Moderate Itch/Numb/Burn Auditory Disturbances: 0-None Visual Disturbances: 0-None Headache: 4-Moderately Severe CIWA-Ar Total Score: 23
[2019-12-27] MEDS ORDERED: MENTHOL/PHENOL 1 EACH UD MM PRN (12:38)
[2019-12-27] MEDS ORDERED: METHOCARBAMOL 500 MG TABLET PO PRN (12:38)
[2019-12-27] MEDS ORDERED: ONDANSETRON *ODT* 4 MG TABLET SL PRN (12:38)
[2019-12-27] MEDS ORDERED: MAGNESIUM HYDROX 2400MG/30ML ORAL SUSPENSION 30 ML CUP PO PRN (12:38)
[2019-12-27] MEDS ORDERED: NICOTINE POLACRILEX 2 MG GUM BUC PRN (12:38)
[2019-12-27] MEDS ORDERED: BISMUTH SUBSALICYLATE 524 MG/30 ML UD PO PRN (12:38)
[2019-12-27] MEDS ORDERED: chlordiazePOXIDE HCL 25 MG CAPSULE PO PRN (12:38)
[2019-12-27] MEDS ORDERED: IBUPROFEN 400 MG TABLET (FP) PO PRN (12:38)
[2019-12-27] MEDS ORDERED: MAG HYDROX/AL HYDROX/SIMETH 30 ML UNIT-DOSE CUP PO PRN (12:38)
[2019-12-27] MEDS ORDERED: MAGNESIUM CITRATE 300 ML BOTTLE PO PRN (12:38)
[2019-12-27] MEDS ORDERED: ACETAMINOPHEN 325 MG TABLET (FP) PO PRN ×2 (12:38)
[2019-12-27] MEDS ORDERED: chlordiazePOXIDE HCL 25 MG CAPSULE ONE (12:39)
[2019-12-27] MEDS ORDERED: chlordiazePOXIDE HCL 25 MG CAPSULE PO ONE (12:41)
[2019-12-27] MEDS ORDERED: PRENATAL VITAMINS W/ FOLIC ACID TABLET (FP) PO SCH (12:45)
--- NOTE | 2019-12-27 13:04 | HP ---
CIWA Score Nausea/Vomitin Muscle Tremors: 4-Moderate,w/Arms Extend Anxiety: 4-Mod. Anxious/Guarded Agitation: 4-Moderately Restless Paroxysmal Sweats: 1-Minimal Palms Moist Orientation: 0-Oriented Tacttile Disturbances: 3-Moderate Itch/Numb/Burn Auditory Disturbances: 0-None Visual Disturbances: 0-None Headache: 4-Moderately Severe CIWA-Ar Total Score: 23 - Admission Criteria OASAS Guidelines: Admission for Medically Managed Detox: Requires at least one of the followin. CIWA greater than 12 2. Seizures within the past 24 hours 3. Delirium tremens within the past 24 hours 4. Hallucinations within the past 24 hours 5. Acute intervention needed for co occurring medical disorder 6. Acute intervention needed for co occurring psychiatric disorder 7. Severe withdrawal that cannot be handled at a lower level of care (continued vomiting, continued diarrhea, abnormal vital signs) requiring intravenous medication and/or fluids 8. Admitting History and Physical - Smoking History Smoking history: Current every day smoker Have you smoked in the past 12 months: Yes Aproximately how many cigarettes per day: 4 - Alcohol/Substance Use Hx Alcohol Use: Yes Admission ROS [facility] Chief Complaint: "detox" Allergies/Adverse Reactions: Allergies Allergy/AdvReac Type Severity Reaction Status Date / Time Penicillins AdvReac Severe Cough Verified 12/27/19 13:28 History of Present Illness: Patient is a 59 y/o female with a history of DM, palpitations, stroke 3 years ago, depression and asthma who is here for detox from alcohol. Patient drinks 2 12oz beers a day and started drinking at age 12. Last drink was last night, or 3-4am this morning. 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 Patient uses crack, first started at age [age] and uses 100 dollars a day. last used last night, uses when she has the urge Smoke 1 joint of marijuana a day. Smokes 1/2 pack of cigarettes a day, first started smoking at age 12. Denies using anything IV. Substance Use & Tx History - Substance Use History Barbiturate Substance amount: 2beers 12 oz Frequency of use: Daily Substance route: Oral Date of Last Use: 12/26/19 Cocaine-Crack Substance amount: $100 Frequency of use: Daily Substance route: Smoking Date of Last Use: 12/26/19 Marijuana/Hashish Substance amount: 1 joint Frequency of use: Daily Substance route: Smoking Date of Last Use: 12/23/19 Nicotine Substance amount: 1/2 pack Frequency of use: Daily Substance route: Smoking Date of Last Use: 12/26/19 sghx: thyroidectomy in september 2019, total hysterectomy psych: depression social[facility] [place] [facility] Patient is admitted for inpatient detox from alcohol with a CIWA of 23. - Review of Systems Constitutional: Chills EENT: reports: Blurred Vision. denies: Double Vision, Tinnitus Respiratory: reports: Shortness of Breath. denies: Cough, Wheezing Cardiac: denies: Chest Pain GI: reports: Diarrhea, Vomiting. denies: Constipated, Nausea : reports: Incontinence. denies: Burning, Dysuria Musculoskeletal: denies: Back Pain, Muscle Pain Integumentary: reports: Rash Neuro: reports: Headache. denies: Numbness, Tingling Endocrine: denies: Unexplained Weight Gain Hematology: denies: Anemia Psychiatric: reports: Anxious, Depressed Patient History - Patient Medical History Hx Anemia: No Hx Asthma: Yes (ON MDI) Hx Chronic Obstructive Pulmonary Disease (COPD): No Hx Cancer: Yes (Uterine Cancer - ) Hx Cardiac Disorders: Yes (PALPITATIONS OF HEART) Hx Congestive Heart Failure: No Hx Hypertension: No Hx Hypercholesterolemia: Yes Hx Pacemaker: No HX Cerebrovascular Accident: Yes (2016 and 2018) Hx Seizures: No Hx Dementia: No Hx Diabetes: Yes (ON INSULIN) Hx Gastrointestinal Disorders: No Hx Liver Disease: No Hx Genitourinary Disorders: No Hx Sexually Transmitted Disorders: No Hx Renal Disease (ESRD): No Hx Thyroid Disease: No Hx Human Immunodeficiency Virus (HIV): No (Negative 2018) Hx Hepatitis C: No Hx Depression: Yes (BIPOLAR DISORDER.) Hx Suicide Attempt: No Hx Bipolar Disorder: No Hx Schizophrenia: No - Patient Surgical History Past Surgical History: Yes Hx Neurologic Surgery: No Hx Cataract Extraction: No Hx Cardiac Surgery: No Hx Lung Surgery: No Hx Breast Surgery: No Hx Breast Biopsy: No Hx Abdominal Surgery: No Hx Appendectomy: No Hx Cholecystectomy: No Hx Genitourinary Surgery: No Hx Section: No Hx Orthopedic Surgery: No Hx Hysterectomy: Yes (Total Hystrectomy 2005) Other Surgical History: Thyroidectomy 2016 Anesthesia Reaction: No - PPD History Date: 09/13/18 Results: 0MM - Smoking Cessation Smoking history: Current every day smoker Have you smoked in the past 12 months: Yes Aproximately how many cigarettes per day: 4 Hx Chewing Tobacco Use: No Initiated information on smoking cessation: Yes 'Breaking Loose' booklet given: 12/27/19 - Substances abused Alcohol Substance route: Oral Frequency: Daily Amount used: 2 cans Age of first use: 12 Date of last use: 12/26/19 Cocaine Substance route: Smoking Frequency: Daily Amount used: varies Age of first use: 18 Date of last use: 12/26/19 Marijuana/Hashish Substance route: Smoking Frequency: Daily Amount used: 1 joint Age of first use: 12 Date of last use: 12/23/19 Admission Physical Exam [facility] - Physical General Appearance: Yes: Within Normal Limits HEENTM: Yes: Hearing grossly Normal Respiratory: Yes: Normal Breath Sounds, No Respiratory Distress, No Accessory Muscle Use Neck: Yes: Within Normal Limits Cardiology: Yes: Regular Rhythm, Regular Rate, S1, S2 Abdominal: Yes: Non Tender, Flat, Soft Back: Yes: Within Normal Limits Musculoskeletal: Yes: Joint Stiffness (left ankle lateral pain, minimal swelling) Extremities: Yes: Other (1x1 abscess felt under R arm pit) Neurological: Yes: Fully Oriented, Alert, Normal Response Integumentary: Yes: Normal Color, Dry, Warm - Diagnostic (1) Alcohol dependence with withdrawal Current Visit: No Status: Chronic Qualifiers: Complication of substance-induced condition: uncomplicated Qualified Code(s): F10.230 - Alcohol dependence with withdrawal, uncomplicated (2) Asthma Current Visit: No Status: Chronic Qualifiers: Asthma severity: unspecified severity Asthma persistence: unspecified Asthma complication type: unspecified Qualified Code(s): J45.909 - Unspecified asthma, uncomplicated (3) Cocaine dependence Current Visit: No Status: Chronic Qualifiers: Substance use status: uncomplicated Qualified Code(s): F14.20 - Cocaine dependence, uncomplicated (4) DM type 2 (diabetes mellitus, type 2) Current Visit: No Status: Chronic Qualifiers: Diabetes mellitus complication status: with unspecified complications (5) Nicotine dependence Current Visit: No Status: Chronic Qualifiers: Nicotine product type: cigarettes Substance use status: uncomplicated Qualified Code(s): F17.210 - Nicotine dependence, cigarettes, uncomplicated Cleared for Admission [facility] - Detox or Rehab [facility] Level of Care: Medically Managed Detox Regimen/Protocol: Librium Breathalyzer - Breathalyzer Breathalyzer: 0 Vital Signs - Vital Signs Vital signs refused: No Temperature: 96.3 F Temperature source: Oral Pulse Rate: 68 Respiratory Rate: 12 Blood Pressure: 110/78 - Height Height: 5 ft 3 in - Weight Weight: 65.771 kg - BMI Body Mass Index (BMI): 25.7 Urine Drug Screen - Test Device Lot number: [id number] Expiration date: 07/24/21 - Control Is test valid?: Yes - Results Drug screen NEGATIVE: No Urine drug screen results: RENE-Cocaine Inpatient Rehab Admission - Rehab Decision to Admit Inpatient rehab admission?: No
[2019-12-27 13:10] VITALS: BMI 25.7
[2019-12-27] MEDS ORDERED: NICOTINE 7 MG/24 HOURS TOPICAL PATCH TD SCH (14:00)
[2019-12-27] MEDS: hydrOXYzine PAMOATE 25 MG CAPSULE (FP) PO SCH ×3 (15:16→23:09)
[2019-12-27] MEDS: chlordiazePOXIDE HCL 25 MG CAPSULE PO SCH ×3 (15:16→23:09)
--- NOTE | 2019-12-27 15:32 | PN ---
Teaching Attending Note Name of Resident: Cassie May ATTENDING PHYSICIAN STATEMENT I saw and evaluated the patient. I reviewed the resident's note and discussed the case with the resident. I agree with the resident's findings and plan as documented. SUBJECTIVE: OBJECTIVE: ASSESSMENT AND PLAN: Patient is a 59 y/o female with a history of DM, palpitations, stroke 3 years ago, depression and asthma who is here for detox from alcohol. Patient drinks 2 12oz beers a day and started drinking at age 12. Last drink was last night, or 3-4am this morning. 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 Patient uses crack, first started at age [age] and uses 100 dollars a day. last used last night, uses when she has the urge Smoke 1 joint of marijuana a day. Smokes 1/2 pack of cigarettes a day, first started smoking at age 12. Denies using anything IV. Vital Signs Temperature 96.3 F L 12/27/19 14:50 Pulse Rate 68 12/27/19 14:50 Respiratory Rate 12 12/27/19 14:50 Blood Pressure 110/78 12/27/19 14:50 O2 Sat by Pulse Oximetry (%) 100 12/27/19 14:13 Imp 1. Alcohol withdrawal, uncomplicated 2. Cocaine use disorder 3. Nicotine dependence 4. Cannabis dependence 5. DM 6. Hx of stroke Plan 1. Librium detox protocol 2. Nicoderm 3. monitor glucose, restart home meds
[2019-12-27] MEDS: INSULIN SLIDING SCALE (NOVOLOG) 1 VIAL SQ SCH ×2 (17:16→23:09)
[2019-12-27 17:31] LABS: HEMATOCRIT 40.6 % (32.4-45.2); HEMOGLOBIN 13.6 GM/dL (10.7-15.3); MCH 32.2 pg (25.7-33.7); MCHC 33.5 g/dl (32.0-36.0); MEAN CELL VOLUME 96.1 fl (80-96); MEAN PLT VOLUME 9.4 fl (7.5-11.1); PLATELET COUNT 269 K/MM3 (134-434); RBC 4.23 M/mm3 (3.60-5.2); RDW 13.5 % (11.6-15.6); WHITE BLOOD COUNT 8.3 K/mm3 (4.0-10.0)
[2019-12-27 17:43] LABS: ALBUMIN 3.2 g/dl (3.4-5.0); BILIRUBIN,TOTAL 0.6 mg/dL (0.2-1); BLOOD UREA NITROGEN 6.8 mg/dL (7-18); CREATININE 1.3 mg/dL (0.55-1.3); TOT PROT 6.8 g/dl (6.4-8.2)
[2019-12-27 17:51] LABS: POTASSIUM 2.7 mmol/L (3.5-5.1)
--- NOTE | 2019-12-27 18:36 | PN ---
S Progress Note (SOAP) Subjective: I was called by RN because patient glucose and potassium on BMP results. Objective: 12/27/19 18:33 Vital Signs 12/27/19 12/27/19 12/27/19 13:29 14:13 14:50 Temperature 96.3 F L 97.6 F 96.3 F L Pulse Rate 68 85 68 Respiratory 20 18 12 Rate Blood Pressure 110/78 101/69 110/78 O2 Sat by Pulse 100 Oximetry (%) Laboratory Last Values WBC 8.3 K/mm3 (4.0-10.0) 12/27/19 13:35 RBC 4.23 M/mm3 (3.60-5.2) 12/27/19 13:35 Hgb 13.6 GM/dL (10.7-15.3) 12/27/19 13:35 Hct 40.6 % (32.4-45.2) 12/27/19 13:35 MCV 96.1 fl (80-96) H 12/27/19 13:35 MCH 32.2 pg (25.7-33.7) 12/27/19 13:35 MCHC 33.5 g/dl (32.0-36.0) 12/27/19 13:35 RDW 13.5 % (11.6-15.6) 12/27/19 13:35 Plt Count 269 K/MM3 (134-434) 12/27/19 13:35 MPV 9.4 fl (7.5-11.1) 12/27/19 13:35 Sodium 131 mmol/L (136-145) L 12/27/19 13:35 Potassium 2.7 mmol/L (3.5-5.1) L* 12/27/19 13:35 Chloride 88 mmol/L (98-107) L 12/27/19 13:35 Carbon Dioxide 33 mmol/L (21-32) H 12/27/19 13:35 Anion Gap 10 MMOL/L (8-16) 12/27/19 13:35 BUN 6.8 mg/dL (7-18) L 12/27/19 13:35 Creatinine 1.3 mg/dL (0.55-1.3) 12/27/19 13:35 Est GFR (CKD-EPI)AfAm 51.28 12/27/19 13:35 Est GFR (CKD-EPI)NonAf 44.24 12/27/19 13:35 POC Glucometer > 600 UNITS (80-120) 12/27/19 16:53 Random Glucose 659 mg/dL (74-106) H* 12/27/19 13:35 Calcium 9.0 mg/dL (8.5-10.1) 12/27/19 13:35 Total Bilirubin 0.6 mg/dL (0.2-1) 12/27/19 13:35 AST 8 U/L (15-37) L 12/27/19 13:35 ALT 12 U/L (13-61) L 12/27/19 13:35 Alkaline Phosphatase 80 U/L (45-117) 12/27/19 13:35 Total Protein 6.8 g/dl (6.4-8.2) 12/27/19 13:35 Albumin 3.2 g/dl (3.4-5.0) L 12/27/19 13:35 Syphilis Serology Reactive (NONREACTIVE) A* 12/27/19 13:35 HIV Ag/Ab Combo Qual Negative (NEGATIVE) 12/27/19 13:35 Labs noted with hypokalemia and hyperglycemia. Assessment: 12/27/19 18:35 Alert and oriented x3 , in no acute distress. Hypokalemia Hyperglycemia. Plan: Transfer to [facility] ED for further evaluation and treatment. Patient endorsed to Dr. Nash.
--- NOTE | 2019-12-27 20:59 | CONSULT ---
Consult - text type - Consultation Consultation Note: ORTHOPEDIC SURGERY CONSULTATION NOTE Department of Orthopedic Surgery HISTORY OF PRESENT ILLNESS Stefany Campbell is a 59 year old female who presents to [facility] with left ankle pain. She has a past medical history of DM, palpitations, CVA, and asthma. She also has a history of crack cocaine abuse and was in [facility] treatment facility prior to being brought to the hospital. The orthopedic service was consulted for a left ankle fracture. The injury occurred 3 weeks ago. She is being treated nonoperatively in a Cam boot and has been bearing weight for the past three weeks. The patient states she injured her ankle 4 months ago after a fall and "re-fractured" it 3 weeks ago. The patient notes pain at the lateral ankle. Denies any other injuries. Denies numbness, tingling or other constitutional complaints. Endorses tobacco use, drug use, alcohol abuse. The patient lives alone. Social History Smoking history Current every day smoker Aproximately how many 4 cigarettes per day Hx Alcohol Use Yes Allergies Allergy/AdvReac Type Severity Reaction Status Date / Time Penicillins AdvReac Severe Cough Verified 12/27/19 19:39 Active Medications Generic Name Dose Route Start Last Admin Trade Name Freq PRN Reason Stop Dose Admin Acetaminophen 650 mg 12/27/19 12:38 Tylenol - PO Q6H PRN PAIN LEVEL 4 - 6 Acetaminophen 650 mg 12/27/19 12:38 Tylenol - PO Q6H PRN FEVER Al Hydroxide/Mg Hydroxide 30 ml 12/27/19 12:38 Mylanta Oral Suspension - PO Q6H PRN DYSPEPSIA Bismuth Subsalicylate 524 mg 12/27/19 12:38 Pepto-Bismol - PO Q1H PRN DIARRHEA Chlordiazepoxide HCl 50 mg 12/27/19 13:45 12/27/19 18:23 Librium - PO 12/28/19 23:01 Not Given [id number] FELA Chlordiazepoxide HCl 25 mg 12/29/19 05:00 Librium - PO 12/29/19 23:01 [id number] FELA Chlordiazepoxide HCl 25 mg 12/27/19 12:38 Librium - PO 12/29/19 23:59 Q4H PRN WITHDRAWAL(CONT SUBST) Chlordiazepoxide HCl 10 mg 12/30/19 05:00 Librium - PO 12/30/19 23:01 [id number] FELA Chlordiazepoxide HCl 10 mg 12/31/19 05:00 Librium - PO 12/31/19 17:01 Q12H FELA Chlordiazepoxide HCl 10 mg 12/30/19 00:00 Librium - PO 12/31/19 00:00 Q4H PRN WITHDRAWAL(CONT SUBST) Chlordiazepoxide HCl 10 mg 01/01/20 05:00 Librium - PO 01/01/20 05:01 ONCE@0500 ONE Eucalyptus/Menthol/Phenol/Sorbitol 1 each 12/27/19 12:38 Cepastat Lozenge - MM 01/02/20 12:38 Q4H PRN SORE THROAT Hydroxyzine Pamoate 25 mg 12/27/19 14:00 12/27/19 18:37 Vistaril - PO 01/02/20 12:38 Not Given Q4HWA [facility] Ibuprofen 400 mg 12/27/19 12:38 Motrin - PO Q6H PRN PAIN LEVEL 1 - 3 Insulin Aspart 1 vial 12/27/19 16:30 12/27/19 17:16 Novolog Vial Sliding Scale - SQ 10 units ACHS FELA Administration Protocol Magnesium Citrate 300 ml 12/27/19 12:38 Citroma - PO Q48H PRN CONSTIPATION Magnesium Hydroxide 30 ml 12/27/19 12:38 Milk Of Magnesia - PO PRN PRN CONSTIPATION Melatonin 5 mg 12/27/19 22:00 Melatonin PO HS FELA Metformin HCl 750 mg 12/27/19 16:30 12/27/19 17:16 Glucophage Xr - PO 750 mg BIDAC FELA Administration Methocarbamol 500 mg 12/27/19 12:38 Robaxin - PO 01/02/20 12:38 Q6H PRN MUSCLE SPASMS Nicotine 7 mg 12/27/19 14:00 12/27/19 15:16 Nicoderm Patch - TD Not Given DAILY [facility] Nicotine Polacrilex 2 mg 12/27/19 12:38 Nicorette Gum - BUC Q2H PRN NICOTINE REPLACEMENT RX Ondansetron HCl 4 mg 12/27/19 12:38 Zofran Odt - SL Q8H PRN Nausea/Vomiting Multivit/Folic Acid/Iron 1 tab 12/27/19 12:45 12/27/19 15:15 Vitamins (Sjr) - PO 1 tab DAILY FELA Administration Sitagliptin Phosphate 100 mg 12/28/19 10:00 Januvia - PO ACBK FELA Thiamine HCl 100 mg 12/27/19 22:00 Vitamin B1 - PO HS FELA Vital Signs (last) Temp Pulse Resp BP Pulse Ox 96.3 F L 68 12 110/78 100 12/27/19 14:50 12/27/19 14:50 12/27/19 14:50 12/27/19 14:50 12/27/19 14:13 Intake and Output 12/25/19 12/26/19 12/27/19 23:59 23:59 23:59 Other: Weight 145 lb Height 5 ft 3 in Body Mass Index (BMI) 25.7 Laboratory 12/27/19 13:35 12/27/19 13:35 FAMILY HISTORY Reviewed and noncontributory REVIEW OF SYMPTOMS A twelve-point review of systems was performed and was negative except as noted in HPI. PHYSICAL EXAM Constitutional: Alert and oriented to person, place, and time. Appears well- developed and well-nourished. No acute distress, appropriate mood and affect. HEENT: Normocephalic, atraumatic Cardiovascular: Regular rate and rhythm, extremities warm, no cyanosis. Pulmonary: Breathing comfortably, normal air movement, no audible wheezing. Right Upper Extremity: No tenderness to palpation. Full passive and active ROM, free from pain. Left Upper Extremity: No tenderness to palpation. Full passive and active ROM, free from pain. Right Lower Extremity: Skin warm, dry, and intact; no lesions, rashes or ulcers noted. Mild lateral ankle swelling. Muscle mass equal and symmetric to contralateral side. No atrophy noted. No masses or effusions noted. Tender to palpation at distal fibula; nontender throughout rest of extremity. No cords or calf tenderness. No significant calf/ankle edema. Full passive and active ROM, free from pain. Joints stable with no pathologic laxity. EHL/TA/GS motor intact; SILT distally; 2+ DP pulses; Cap refill brisk. Tone and reflexes normal. Left Lower Extremity: Skin warm, dry, and intact; no lesions, rashes or ulcers noted. Muscle mass equal and symmetric to contralateral side. No atrophy noted. No masses or effusions noted. No tenderness to palpation. No cords or calf tenderness. No significant calf/ankle edema. Full passive and active ROM, free from pain. Joints stable with no pathologic laxity. EHL/TA/GS motor intact; SILT distally; 2+ DP pulses; Cap refill brisk. Tone and reflexes normal. IMAGING I personally reviewed all radiographs of the left ankle (4 views). They demonstrate a distal fibula fracture. There is no medial clear space widening. ASSESSMENT AND PLAN Stefany Campbell is a 59 year old female presenting status post fall 3 weeks ago with a left sided stable lateral malleolus fracture. We have reviewed the imaging and clinical findings in detail, as well as their potential implications. After appropriate informed discussion, the patient was placed in an aircast. No orthopeidc surgical intervention at this time. Patient was instructed regarding: weight-bearing as tolerated in her Cam boot or air cast. signs and symptoms of compartment syndrome and need to seek immediate care should new onset numbness, tingling, or significantly increasing pain occur. maintain strict elevation above the level of the heart for the next 3-4 days. keeping the splint clean and dry. avoiding NSAID medications. All questions were answered. Thank you for involving our team in the care of this patient. Please have patient follow up in our office in 1-2 weeks .
[2019-12-27] MEDS ORDERED: MELATONIN 5 MG TABLETS PO SCH (22:00)
[2019-12-27] MEDS ORDERED: THIAMINE HCL 100 MG TABLET (FP) PO SCH (22:00)
[2019-12-28 00:04] VITALS: BP 98/58; PULSE 79; TEMP 97.1
[2019-12-28] MEDS: chlordiazePOXIDE HCL 25 MG CAPSULE PO SCH (06:44)
[2019-12-28] MEDS: hydrOXYzine PAMOATE 25 MG CAPSULE (FP) PO SCH (06:45)
[2019-12-28] MEDS: INSULIN SLIDING SCALE (NOVOLOG) 1 VIAL SQ SCH (06:46)
[2019-12-29] MEDS ORDERED: chlordiazePOXIDE HCL 25 MG CAPSULE PO SCH (05:00)
[2019-12-30] MEDS ORDERED: chlordiazePOXIDE HCL 10 MG CAPSULE PO PRN
[2019-12-30] MEDS ORDERED: chlordiazePOXIDE HCL 10 MG CAPSULE PO SCH (05:00)
[2019-12-31] MEDS ORDERED: chlordiazePOXIDE HCL 10 MG CAPSULE PO SCH (05:00)
[2020-01-01] MEDS ORDERED: chlordiazePOXIDE HCL 10 MG CAPSULE PO ONE (05:00)
== END 2019-12-27 23:55 | disposition short-term general hospital (02) | DRG 897 ==
LOC: YASAS 12:06 → Y3N 13:53
PROVIDERS: ADMIT Allergy & Immunology; ATTEND Allergy & Immunology
PROC: HZ2ZZZZ Detoxification Services for Substance Abuse Treatment (ICD-10-PCS; principal; 2019-12-27)
DX: F10.230 Alcohol dependence with withdrawal, uncomplicated (principal); F14.20 Cocaine dependence, uncomplicated; F12.20 Cannabis dependence, uncomplicated; F17.210 Nicotine dependence, cigarettes, uncomplicated; F31.9 Bipolar disorder, unspecified; E87.6 Hypokalemia; E89.0 Postprocedural hypothyroidism; E11.65 Type 2 diabetes mellitus with hyperglycemia; Z79.4 Long term (current) use of insulin; Z86.73 Personal history of transient ischemic attack (TIA), and cerebral infarction without residual deficits; Z88.0 Allergy status to penicillin; Z90.710 Acquired absence of both cervix and uterus
CPT/HCPCS: 36415; 80053; 82962; 85027; 86593; 86780; 87389; U0003

== ENCOUNTER 2019-12-27 19:14 | Inpatient (IN) | payer OTHER ==
[2019-12-27] MEDS ORDERED: SODIUM CHLORIDE 0.9% 1000 ML INFUS.BAG IV ONE ×2 (19:55→19:56)
[2019-12-27 20:30] LABS: BASO % 0.9 % (0-2.0); EOS % 0.5 % (0-4.5); HEMOGLOBIN 13.8 GM/dL (10.7-15.3); MCH 32.4 pg (25.7-33.7); MCHC 34.4 g/dl (32.0-36.0); MEAN CELL VOLUME 94.2 fl (80-96); MEAN PLT VOLUME 9.3 fl (7.5-11.1); MONO % 7.8 % (3.8-10.2); NEUT % 65.8 % (42.8-82.8); PLATELET COUNT 290 K/MM3 (134-434); RBC 4.25 M/mm3 (3.60-5.2); WHITE BLOOD COUNT 8.2 K/mm3 (4.0-10.0)
[2019-12-27 20:31] LABS: PH,URINE 6.5 (5.0-8.0); URINE APPEARANCE CLEAR; URINE BILIRUBIN NEGATIVE (NEGATIVE); URINE COLOR YELLOW; URINE GLUCOSE (UA) 3+ (NEGATIVE); URINE KETONE NEGATIVE (NEGATIVE); URINE LEUK ESTERASE NEGATIVE (NEGATIVE); URINE NITRITE NEGATIVE (NEGATIVE); URINE PROTEIN NEGATIVE (NEGATIVE); URINE UROBILINOGEN 0.2 mg/dL (0.2-1.0)
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
[2019-12-27 20:58] LABS: ALBUMIN 2.9 g/dl (3.4-5.0); BILIRUBIN,TOTAL 0.3 mg/dL (0.2-1); BLOOD UREA NITROGEN 7.1 mg/dL (7-18); CALCIUM 8.9 mg/dL (8.5-10.1); CREATININE 1.1 mg/dL (0.55-1.3); POTASSIUM 3.4 mmol/L (3.5-5.1); TOT PROT 6.8 g/dl (6.4-8.2)
--- NOTE | 2019-12-27 21:04 | CONSULT ---
Consult - text type - Consultation Consultation Note: ORTHOPEDIC SURGERY CONSULTATION NOTE Department of Orthopedic Surgery HISTORY OF PRESENT ILLNESS Stefany Campbell is a 59 year old female who presents to [facility] with left ankle pain. She has a past medical history of DM, palpitations, CVA, and asthma. She also has a history of crack cocaine abuse and was in [facility] treatment facility prior to being brought to the hospital. The orthopedic service was consulted for a left ankle fracture. The injury occurred 3 weeks ago. She is being treated nonoperatively in a Cam boot and has been bearing weight for the past three weeks. The patient states she injured her ankle 4 months ago after a fall and "re-fractured" it 3 weeks ago. The patient notes pain at the lateral ankle. Denies any other injuries. Denies numbness, tingling or other constitutional complaints. Endorses tobacco use, drug use, alcohol abuse. The patient lives alone. Social History Smoking history Current every day smoker Aproximately how many 4 cigarettes per day Hx Alcohol Use Yes Allergies Allergy/AdvReac Type Severity Reaction Status Date / Time Penicillins AdvReac Severe Cough Verified 12/27/19 19:39 Active Medications Generic Name Dose Route Start Last Admin Trade Name Freq PRN Reason Stop Dose Admin Acetaminophen 650 mg 12/27/19 12:38 Tylenol - PO Q6H PRN PAIN LEVEL 4 - 6 Acetaminophen 650 mg 12/27/19 12:38 Tylenol - PO Q6H PRN FEVER Al Hydroxide/Mg Hydroxide 30 ml 12/27/19 12:38 Mylanta Oral Suspension - PO Q6H PRN DYSPEPSIA Bismuth Subsalicylate 524 mg 12/27/19 12:38 Pepto-Bismol - PO Q1H PRN DIARRHEA Chlordiazepoxide HCl 50 mg 12/27/19 13:45 12/27/19 18:23 Librium - PO 12/28/19 23:01 Not Given [id number] FELA Chlordiazepoxide HCl 25 mg 12/29/19 05:00 Librium - PO 12/29/19 23:01 [id number] FELA Chlordiazepoxide HCl 25 mg 12/27/19 12:38 Librium - PO 12/29/19 23:59 Q4H PRN WITHDRAWAL(CONT SUBST) Chlordiazepoxide HCl 10 mg 12/30/19 05:00 Librium - PO 12/30/19 23:01 [id number] FELA Chlordiazepoxide HCl 10 mg 12/31/19 05:00 Librium - PO 12/31/19 17:01 Q12H FELA Chlordiazepoxide HCl 10 mg 12/30/19 00:00 Librium - PO 12/31/19 00:00 Q4H PRN WITHDRAWAL(CONT SUBST) Chlordiazepoxide HCl 10 mg 01/01/20 05:00 Librium - PO 01/01/20 05:01 ONCE@0500 ONE Eucalyptus/Menthol/Phenol/Sorbitol 1 each 12/27/19 12:38 Cepastat Lozenge - MM 01/02/20 12:38 Q4H PRN SORE THROAT Hydroxyzine Pamoate 25 mg 12/27/19 14:00 12/27/19 18:37 Vistaril - PO 01/02/20 12:38 Not Given Q4HWA [facility] Ibuprofen 400 mg 12/27/19 12:38 Motrin - PO Q6H PRN PAIN LEVEL 1 - 3 Insulin Aspart 1 vial 12/27/19 16:30 12/27/19 17:16 Novolog Vial Sliding Scale - SQ 10 units ACHS FELA Administration Protocol Magnesium Citrate 300 ml 12/27/19 12:38 Citroma - PO Q48H PRN CONSTIPATION Magnesium Hydroxide 30 ml 12/27/19 12:38 Milk Of Magnesia - PO PRN PRN CONSTIPATION Melatonin 5 mg 12/27/19 22:00 Melatonin PO HS FELA Metformin HCl 750 mg 12/27/19 16:30 12/27/19 17:16 Glucophage Xr - PO 750 mg BIDAC FELA Administration Methocarbamol 500 mg 12/27/19 12:38 Robaxin - PO 01/02/20 12:38 Q6H PRN MUSCLE SPASMS Nicotine 7 mg 12/27/19 14:00 12/27/19 15:16 Nicoderm Patch - TD Not Given DAILY [facility] Nicotine Polacrilex 2 mg 12/27/19 12:38 Nicorette Gum - BUC Q2H PRN NICOTINE REPLACEMENT RX Ondansetron HCl 4 mg 12/27/19 12:38 Zofran Odt - SL Q8H PRN Nausea/Vomiting Multivit/Folic Acid/Iron 1 tab 12/27/19 12:45 12/27/19 15:15 Vitamins (Sjr) - PO 1 tab DAILY FELA Administration Sitagliptin Phosphate 100 mg 12/28/19 10:00 Januvia - PO ACBK EFLA Thiamine HCl 100 mg 12/27/19 22:00 Vitamin B1 - PO HS FELA Vital Signs (last) Temp Pulse Resp BP Pulse Ox 96.3 F L 68 12 110/78 100 12/27/19 14:50 12/27/19 14:50 12/27/19 14:50 12/27/19 14:50 12/27/19 14:13 Intake and Output 12/25/19 12/26/19 12/27/19 23:59 23:59 23:59 Other: Weight 145 lb Height 5 ft 3 in Body Mass Index (BMI) 25.7 Laboratory 12/27/19 13:35 12/27/19 13:35 FAMILY HISTORY Reviewed and noncontributory REVIEW OF SYMPTOMS A twelve-point review of systems was performed and was negative except as noted in HPI. PHYSICAL EXAM Constitutional: Alert and oriented to person, place, and time. Appears well- developed and well-nourished. No acute distress, appropriate mood and affect. HEENT: Normocephalic, atraumatic Cardiovascular: Regular rate and rhythm, extremities warm, no cyanosis. Pulmonary: Breathing comfortably, normal air movement, no audible wheezing. Right Upper Extremity: No tenderness to palpation. Full passive and active ROM, free from pain. Left Upper Extremity: No tenderness to palpation. Full passive and active ROM, free from pain. Right Lower Extremity: Skin warm, dry, and intact; no lesions, rashes or ulcers noted. Mild lateral ankle swelling. Muscle mass equal and symmetric to contralateral side. No atrophy noted. No masses or effusions noted. Tender to palpation at distal fibula; nontender throughout rest of extremity. No cords or calf tenderness. No significant calf/ankle edema. Full passive and active ROM, free from pain. Joints stable with no pathologic laxity. EHL/TA/GS motor intact; SILT distally; 2+ DP pulses; Cap refill brisk. Tone and reflexes normal. Left Lower Extremity: Skin warm, dry, and intact; no lesions, rashes or ulcers noted. Muscle mass equal and symmetric to contralateral side. No atrophy noted. No masses or effusions noted. No tenderness to palpation. No cords or calf tenderness. No significant calf/ankle edema. Full passive and active ROM, free from pain. Joints stable with no pathologic laxity. EHL/TA/GS motor intact; SILT distally; 2+ DP pulses; Cap refill brisk. Tone and reflexes normal. IMAGING I personally reviewed all radiographs of the left ankle (3 views) and foot (2 views). They demonstrate a distal fibula fracture. There is no medial clear space widening. No other fracture or dislocation noted. ASSESSMENT AND PLAN Stefany Campbell is a 59 year old female presenting status post fall 3 weeks ago with a left sided stable lateral malleolus fracture. We have reviewed the im aging and clinical findings in detail, as well as their potential implications. After appropriate informed discussion, the patient was placed in an aircast. No orthopeidc surgical intervention at this time. Patient was instructed regarding: weight-bearing as tolerated in her Cam boot or air cast. signs and symptoms of compartment syndrome and need to seek immediate care should new onset numbness, tingling, or significantly increasing pain occur. maintain strict elevation above the level of the heart for the next 3-4 days. keeping the splint clean and dry. avoiding NSAID medications. All questions were answered. Thank you for involving our team in the care of this patient. Please have patient follow up in our office in 1-2 weeks [phone].
[2019-12-27] MEDS ORDERED: POTASSIUM CHLORIDE TABS 20 MEQ TABLET.ER (FP) PO ONE ×2 (21:20→21:26)
[2019-12-27 21:25] LABS: VENOUS BASE EXCESS 7.4 mmol/L (-2-2); VENOUS O2 SATURATION 58.1 % (70-80); VENOUS PCO2 54.7 mmHg (38-52); VENOUS PH 7.409 (7.310-7.410)
[2019-12-27 22:00] LABS: ALBUMIN 2.7 g/dl (3.4-5.0); ALK PHOS 71 U/L (45-117); ANION GAP 7 MMOL/L (8-16); BILIRUBIN,TOTAL 0.3 mg/dL (0.2-1); BLOOD UREA NITROGEN 6.5 mg/dL (7-18); CALCIUM 8.5 mg/dL (8.5-10.1); CHLORIDE 97 mmol/L (98-107); CO2 32 mmol/L (21-32); CREATININE 1.1 mg/dL (0.55-1.3); SGOT/AST 15 U/L (15-37); SGPT/ALT 11 U/L (13-61); SODIUM 135 mmol/L (136-145); TOT PROT 5.9 g/dl (6.4-8.2)
[2019-12-27 22:05] LABS: GLUCOSE,RANDOM 438 mg/dL (74-106)
[2019-12-27] MEDS ORDERED: KCL 10 MEQ IVPB 20 MEQ/200 ML INFUS.BAG IVPB ONE (22:38)
[2019-12-27] MEDS: KCL 10 MEQ IVPB 10 MEQ/100 ML INFUS.BAG IVPB SCH (22:48)
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
[2019-12-28] MEDS ORDERED: KCL 10 MEQ IVPB 10 MEQ/100 ML INFUS.BAG IVPB SCH ×2 (01:30→12:30)
--- NOTE | 2019-12-28 01:50 | HP ---
CHIEF COMPLAINT: Brought in from [facility] for Hyperglycemia (Glucose at 659) and Hypokalemia (K at 2.7) PCP: HISTORY OF PRESENT ILLNESS: 59 year old female patient with past medical history that includes NIDDM, Asthma, Depression, 'heart palpitations', crack cocaine and alcohol use, CVA that was 'three years ago', , Hysterectomy due to uterine cancer and finished chemo, and Thyroidectomy due to a thyroid lump, who presented to the emergency room from [facility] for hyperglycemia (glucose at 659) and hypokalemia (K at 2.7). The patient reports that she does not take insulin at home and that she usually has a blood sugar reading such as '145' or '109' when she checks it. She reports that she takes Metformin 550 BID. The patient reports feeling itchy today and has general restless movements of her arms and legs which she attributes to withdrawal. She drinks a couple beers a day with her last drink at 4am. The patient also reports using crack cocaine since 4 months ago. She says that 3 months ago and 3 weeks ago she was high and she 'passed out' while high and woke up incontinent of urine/stool. She did not have any bruised or bit tongue on waking. Her 'passing out' while high only happened those 2 times; she denies any past syncope. In the emergency room, the patient's potassium was 3.0 and her glucose 438. She was given 40 PO KCl and 2 bags of 10mEq IV KCl. ER course was notable for: (1) 40 PO KCl and 10mEq IV KCL x 2 bags (2) ECG (NSR, 76bpm, ND 136ms, QTc 488ms) (3) Recent Travel: Denies PAST MEDICAL HISTORY: NIDDM, Asthma, Depression, 'heart palpitations', crack cocaine and alcohol use, CVA that was 'three years ago' PAST SURGICAL HISTORY: , Hysterectomy due to uterine cancer and finished chemo, Thyroidectomy due to a thyroid lump Social History: Smokin/2 a pack per day Alcohol: 2 beers a day with last drink at 4am Drugs: 1 joint of marijuana per day. Crack cocaine use since starting 4 months ago using more than once a week but not daily use Allergies Penicillins Adverse Reaction (Severe, Verified 12/27/19 19:39) Cough Patient stated 'throat closes up' if given penicillin (12/28/19 1:19am) HOME MEDICATIONS: Home Medications Medication Instructions Recorded metFORMIN HCL [Metformin HCl] 750 mg PO BID 09/11/18 Aripiprazole [Abilify] 20 mg PO HS 09/15/18 traZODone HCL [Trazodone HCl] 300 mg PO HS 09/15/18 REVIEW OF SYSTEMS CONSTITUTIONAL: Absent: denies fever/chills CARDIOVASCULAR: Absent: denies palpitations, denies chest pain RESPIRATORY: Absent: denies shortness of breath GASTROINTESTINAL: Absent: denies abdominal pain, denies constipation GENITOURINARY: Absent: denies dysuria, denies hematuria SKIN: itchy Absent: NEUROLOGIC: general spontaneous restless jerking of arms and legs which patient attributes to withdrawal Absent: denies headache, denies dizziness, denies hallucinations PHYSICAL EXAMINATION Vital Signs - 24 hr 12/27/19 12/27/19 19:39 22:04 Temperature 98.3 F 98.6 F Pulse Rate 81 Pulse Rate [ 67 Left Radial] Respiratory 20 19 Rate Blood Pressure 95/58 L Blood Pressure 110/58 L [Right Arm] O2 Sat by Pulse 98 99 Oximetry (%) GENERAL: Awake, alert, and fully oriented, in no acute distress. HEAD: Normal with no signs of trauma. EYES: Pupils equal, round and reactive to light, extraocular movements intact. No lid lag. EARS, NOSE, THROAT: Ears normal, nares patent, oropharynx clear without exudates. Mildly dry mucous membranes. NECK: Normal range of motion, supple without lymphadenopathy, JVD, or masses. LUNGS: Breath sounds equal, clear to auscultation bilaterally. No wheezes, and no crackles. No accessory muscle use. HEART: Regular rate and rhythm, normal S1 and S2 without murmur, rub or gallop. Heart sounds louder on left side of chest. ABDOMEN: Soft, nontender, not distended, normoactive bowel sounds, no guarding, no rebound, no masses. MUSCULOSKELETAL: Normal range of motion at all joints. No bony deformities or tenderness. General restless movements of arms and legs which patient attributes to withdrawal. UPPER EXTREMITIES: 2+ pulses, warm, well-perfused. No cyanosis. No clubbing. No peripheral edema. LOWER EXTREMITIES: 2+ pulses, warm, well-perfused. No peripheral edema. Left ankle in cast. NEUROLOGICAL: Normal speech. PSYCHIATRIC: Annoyed SKIN: Warm, dry, normal turgor, normal capillary refill. Small 1 cm pustule in her right armpit, which has been there for 3 days that the patient popped previously and had some white or clear fluid come out with a little blood as she kept picking at it. Laboratory Results - last 24 hr 12/27/19 12/27/19 12/27/19 20:20 20:20 20:20 WBC 8.2 RBC 4.25 Hgb 13.8 Hct 40.0 MCV 94.2 MCH 32.4 MCHC 34.4 RDW 14.0 Plt Count 290 MPV 9.3 Absolute Neuts (auto) 5.4 Neutrophils % 65.8 Lymphocytes % 25.0 Monocytes % 7.8 Eosinophils % 0.5 Basophils % 0.9 Nucleated RBC % 0 VBG pH POC VBG pCO2 POC VBG pO2 VBG HCO3 VBG O2 Sat (Rajni) VBG Base Excess Sodium 135 L Potassium 3.4 L Chloride 93 L Carbon Dioxide 34 H Anion Gap 9 BUN 7.1 Creatinine 1.1 Est GFR (CKD-EPI)AfAm 62.75 Est GFR (CKD-EPI)NonAf 54.14 Random Glucose 499 H* Calcium 8.9 Magnesium 2.0 Total Bilirubin 0.3 AST 17 ALT 12 L Alkaline Phosphatase 83 Creatine Kinase Troponin I Total Protein 6.8 Albumin 2.9 L Lipase 234 Urine Color Yellow Urine Appearance Clear Urine pH 6.5 Ur Specific [place] 1.034 Urine Protein Negative Urine Glucose (UA) 3+ H Urine Ketones Negative Urine Blood Negative Urine Nitrite Negative Urine Bilirubin Negative Urine Urobilinogen 0.2 Ur Leukocyte Esterase Negative 12/27/19 12/27/19 21:11 21:23 WBC RBC Hgb Hct MCV MCH MCHC RDW Plt Count MPV Absolute Neuts (auto) Neutrophils % Lymphocytes % Monocytes % Eosinophils % Basophils % Nucleated RBC % VBG pH 7.409 POC VBG pCO2 54.7 H POC VBG pO2 30.8 VBG HCO3 33.8 H VBG O2 Sat (Rajni) 58.1 L VBG Base Excess 7.4 H Sodium 135 L Potassium 3.0 L Chloride 97 L Carbon Dioxide 32 Anion Gap 7 L BUN 6.5 L Creatinine 1.1 Est GFR (CKD-EPI)AfAm 62.75 Est GFR (CKD-EPI)NonAf 54.14 Random Glucose 438 H* Calcium 8.5 Magnesium Total Bilirubin 0.3 AST 15 ALT 11 L Alkaline Phosphatase 71 Creatine Kinase 76 Troponin I < 0.02 Total Protein 5.9 L Albumin 2.7 L Lipase Urine Color Urine Appearance Urine pH Ur Specific [place] Urine Protein Urine Glucose (UA) Urine Ketones Urine Blood Urine Nitrite Urine Bilirubin Urine Urobilinogen Ur Leukocyte Esterase ASSESSMENT/PLAN: 59 year old female patient with past medical history that includes NIDDM, Asthma, Depression, 'heart palpitations', crack cocaine and alcohol use, CVA that was 'three years ago', , Hysterectomy due to uterine cancer and finished chemo, and Thyroidectomy due to a thyroid lump, who presented to the emergency room from [facility] for hyperglycemia (glucose at 659) and hypokalemia (K at 2.7). 1. Hypokalemia - IV and PO KCl - Monitor Potassium 2. Hyperglycemia - BGMs - Start Novolog only once Potassium is back to normal, as insulin can cause increased hypokalemia - NPO 3. Alcohol/Cocaine Withdrawal - Librium Protocol - Banana Bag - Thiamine and Folic Acid - Neurochecks - Fall, Aspiration, and Seizure Precautions. 4. DM - Novolog Sliding Scale on hold until Potassium is above the lower limit of nor mal #FEN - 1 Liter IV Banana Bag. Monitor Electrolytes. NPO DVT PPx - Lovenox SQ Family Medical History Family History: As Documented Family Hx Cancer: Grandmother (paternal) (Bone Cancer), Grandfather (paternal) (Blood Cancer), Father (Colan Cancer) Other Family History: Uncle - Throat Cancer Visit type - Emergency Visit Emergency Visit: Yes ED Registration Date: 12/27/19 Care time: The patient presented to the Emergency Department on the above date and was hospitalized for further evaluation of their emergent condition. - New Patient This patient is new to me today: Yes Date on this admission: 12/28/19 - Critical Care Critical Care patient: No ATTENDING PHYSICIAN STATEMENT I saw and evaluated the patient. I reviewed the resident's note and discussed the case with the resident. I agree with the resident's findings and plan as documented. SUBJECTIVE: OBJECTIVE: ASSESSMENT AND PLAN:
[2019-12-28] MEDS ORDERED: FOLIC ACID INJECTION - 1 MG, THIAMINE HCL 100 MG, MULTIVIT INJECTION ADULT 10 ML in SOD... IVPB ONE (02:00)
[2019-12-28] MEDS ORDERED: chlordiazePOXIDE HCL 25 MG CAPSULE ONE ×3 (05:01→17:16)
[2019-12-28] MEDS: chlordiazePOXIDE HCL 25 MG CAPSULE PO SCH ×4 (05:03→22:56)
[2019-12-28] MEDS ORDERED: POTASSIUM CHLORIDE ORAL LIQUID 20 MEQ/15 ML ONE (05:56)
[2019-12-28] MEDS ORDERED: POTASSIUM CHLORIDE TABS 20 MEQ TABLET.ER (FP) PO SCH ×2 (06:00→13:15)
[2019-12-28 06:08] LABS: HEMATOCRIT 35.8 % (32.4-45.2); HEMOGLOBIN 12.2 GM/dL (10.7-15.3); MCH 31.9 pg (25.7-33.7); MCHC 33.9 g/dl (32.0-36.0); MEAN CELL VOLUME 94.1 fl (80-96); PLATELET COUNT 252 K/MM3 (134-434); RBC 3.81 M/mm3 (3.60-5.2); RDW 13.8 % (11.6-15.6); WHITE BLOOD COUNT 7.2 K/mm3 (4.0-10.0)
[2019-12-28 06:26] LABS: BLOOD UREA NITROGEN 8.2 mg/dL (7-18); CALCIUM 7.6 mg/dL (8.5-10.1); CREATININE 0.9 mg/dL (0.55-1.3); MAGNESIUM 1.5 mg/dL (1.8-2.4); POTASSIUM 3.4 mmol/L (3.5-5.1)
--- NOTE | 2019-12-28 08:17 | PN ---
Teaching Attending Note Name of Resident: Darren Barnes ATTENDING PHYSICIAN STATEMENT I saw and evaluated the patient. I reviewed the resident's note and discussed the case with the resident. I agree with the resident's findings and plan as documented. SUBJECTIVE: This patient is a 59yof with PMhx of NIDDM, Asthma, Depression,heart palp itations,, polysubstance abuse (alcohol/crack/cocaine) , Hx of CVA (3yrs ago) , , Hysterectomy due to uterine cancer (s/p chemo), and Thyroidectomy due to a thyroid lump, who was send from [facility] to ED. for having elevated blood sugar(glucose at 659) and hypokalemia (K at 2.7). In NAD OBJECTIVE: Vital Signs Temperature 98.2 F 12/28/19 01:59 Pulse Rate 76 12/28/19 06:06 Respiratory Rate 20 12/28/19 06:06 Blood Pressure 148/81 12/28/19 06:06 O2 Sat by Pulse Oximetry (%) 97 12/28/19 06:06 PE:per resident's note CBCD WBC 7.2 K/mm3 (4.0-10.0) 12/28/19 05:35 RBC 3.81 M/mm3 (3.60-5.2) 12/28/19 05:35 Hgb 12.2 GM/dL (10.7-15.3) 12/28/19 05:35 Hct 35.8 % (32.4-45.2) 12/28/19 05:35 MCV 94.1 fl (80-96) 12/28/19 05:35 MCHC 33.9 g/dl (32.0-36.0) 12/28/19 05:35 RDW 13.8 % (11.6-15.6) 12/28/19 05:35 Plt Count 252 K/MM3 (134-434) 12/28/19 05:35 MPV 9.0 fl (7.5-11.1) 12/28/19 05:35 CMP Sodium 140 mmol/L (136-145) 12/28/19 05:35 Potassium 3.4 mmol/L (3.5-5.1) L 12/28/19 05:35 Chloride 104 mmol/L (98-107) 12/28/19 05:35 Carbon Dioxide 29 mmol/L (21-32) 12/28/19 05:35 Anion Gap 7 MMOL/L (8-16) L 12/28/19 05:35 BUN 8.2 mg/dL (7-18) 12/28/19 05:35 Creatinine 0.9 mg/dL (0.55-1.3) 12/28/19 05:35 Random Glucose 413 mg/dL (74-106) H* 12/28/19 05:35 Calcium 7.6 mg/dL (8.5-10.1) L 12/28/19 05:35 Total Bilirubin 0.3 mg/dL (0.2-1) 12/27/19 21:23 AST 15 U/L (15-37) 12/27/19 21:23 ALT 11 U/L (13-61) L 12/27/19 21:23 Alkaline Phosphatase 71 U/L (45-117) 12/27/19 21:23 Total Protein 5.9 g/dl (6.4-8.2) L 12/27/19 21:23 Albumin 2.7 g/dl (3.4-5.0) L 12/27/19 21:23 CARDIAC ENZYMES Creatine Kinase 76 U/L (26-192) 12/27/19 21:23 Troponin I < 0.02 ng/ml (0.00-0.05) 12/27/19 21:23 Current Medications Generic Name Dose Route Start Last Admin Trade Name Freq PRN Reason Stop Dose Admin Chlordiazepoxide HCl 25 mg 12/28/19 05:00 12/28/19 05:03 Librium - PO 12/28/19 23:01 25 mg [id number] FELA Administration Chlordiazepoxide HCl 10 mg 12/29/19 05:00 Librium - PO 12/29/19 23:01 [id number] FELA Chlordiazepoxide HCl 10 mg 12/30/19 05:00 Librium - PO 12/30/19 17:01 Q12H FELA Chlordiazepoxide HCl 10 mg 12/29/19 00:00 Librium - PO 12/30/19 00:00 Q4H PRN WITHDRAWAL(CONT SUBST) Chlordiazepoxide HCl 10 mg 12/31/19 05:00 Librium - PO 12/31/19 05:01 ONCE@0500 ONE Enoxaparin Sodium 40 mg 12/28/19 10:00 Lovenox - SQ DAILY FELA Folic Acid 1 mg 12/28/19 10:00 Folic Acid - PO DAILY FELA Folic Acid 1 mg/ Thiamine HCl 1,000 mls @ 125 mls/hr 12/28/19 02:00 12/28/19 02:06 100 mg/ Multivitamins/Minerals IVPB 12/28/19 09:59 125 mls/hr 10 ml/ Sodium Chloride ONCE ONE Administration Potassium Chloride 10 meq in 100 mls @ 100 mls/hr 12/28/19 07:00 Potassium Chloride 10 Meq Premix Ivpb - IVPB 12/28/19 08:59 Q60M FELA Potassium Chloride 40 meq 12/28/19 06:00 12/28/19 06:06 K-Dur - PO 12/28/19 22:00 40 meq TID FELA Administration Thiamine HCl 100 mg 12/28/19 10:00 Vitamin B1 - PO DAILY FELA Home Medications Medication Instructions Recorded metFORMIN HCL [Metformin HCl] 750 mg PO BID 09/11/18 Aripiprazole [Abilify] 20 mg PO HS 09/15/18 traZODone HCL [Trazodone HCl] 300 mg PO HS 09/15/18 EKG shows NSR at 76/minute and QTc 488 with old T wave inversion in V1-V with no ST changes. CXR: dextrocardiac noted , and reviewed ASSESSMENT AND PLAN: This patient is a 59yof with Pmhx of NIDDM, Asthma, Depression, heart palpitations, crack cocaine and alcohol use, CVA ( 3yrs ago), , Hys terectomy due to uterine cancer and finished chemo, and Thyroidectomy due to a thyroid lump, who presented to the ED. from [facility] for hyperglycemia (glucose at 659) and hypokalemia (K at 2.7). #T2DM Uncontrolled presented with elevated BS : SS with coverage , restart her home meds in am # Alcohol withdrawal: on librium protocol #Hx of polysubstance abuse: (crack/cocoaine) #Left ankle fracture: Xray reveals left ankle distal fibula fracture: as per ortho: No orthopedic surgical intervention at this time, weight-bearing as tolerated in her Cam boot or air cast. signs and symptoms of compartment syndrome and need to seek immediate care should new onset numbness, tingling, or significantly increasing pain occur. maintain strict elevation above the level of the heart for the next 3-4 days. keeping the splint clean and dry. avoiding NSAID medications. #Dextrocardia: on CXR #Hypokalemia : replete and follow #Covid pending #Tobacco Use: Nicotine patch. DVT prophylaxis: Lovenox 40 mg will hold trazodone since elevated QTc, monitor QTc
[2019-12-28] MEDS ORDERED: KCL 10 MEQ IVPB 10 MEQ/100 ML INFUS.BAG IVPB ONE (08:38)
[2019-12-28] MEDS ORDERED: FOLIC ACID 1 MG TABLET (FP) ONE (08:39)
[2019-12-28] MEDS ORDERED: THIAMINE HCL 100 MG TABLET (FP) ONE (08:39)
[2019-12-28] MEDS ORDERED: ENOXAPARIN NA (PORCINE) 40 MG/0.4 ML DISP.SYRIN SQ ONE (08:40)
[2019-12-28] MEDS: ENOXAPARIN NA (PORCINE) 40 MG/0.4 ML DISP.SYRIN SQ SCH (09:00)
[2019-12-28] MEDS: FOLIC ACID 1 MG TABLET (FP) PO SCH (09:00)
[2019-12-28] MEDS: THIAMINE HCL 100 MG TABLET (FP) PO SCH (09:00)
[2019-12-28] MEDS: KCL 10 MEQ IVPB 10 MEQ/100 ML INFUS.BAG IVPB SCH ×3 (09:00)
--- NOTE | 2019-12-28 09:17 | EKG ---
Test Reason : Blood Pressure : / mmHG Vent. Rate : 076 BPM Atrial Rate : 076 BPM P-R Int : 136 ms QRS Dur : 078 ms QT Int : 434 ms P-R-T Axes : 052 -08 -04 degrees QTc Int : 488 ms NORMAL SINUS RHYTHM NONSPECIFIC T WAVE ABNORMALITY PROLONGED QT ABNORMAL ECG WHEN COMPARED WITH ECG OF 12-SEP-2018 08:16, CRITERIA FOR ANTERIOR INFARCT ARE NO LONGER PRESENT Confirmed by NORMA QUEEN MD ([id number]) on 12/28/2019 9:16:46 AM Referred By: Confirmed By:NORMA QUEEN MD
[2019-12-28] MEDS ORDERED: POTASSIUM CHLORIDE TABS 20 MEQ TABLET.ER (FP) PO ONE (10:05)
[2019-12-28] MEDS ORDERED: MAGNESIUM OXIDE 400 MG TABLET (FP) PO ONE (10:30)
[2019-12-28] MEDS: POTASSIUM CHLORIDE TABS 20 MEQ TABLET.ER (FP) PO SCH ×2 (10:54→22:56)
--- NOTE | 2019-12-28 14:13 | PN ---
Physical Exam: SUBJECTIVE: Patient seen and examined in the ED. Patient visibly aggitated, and tremulous. Non-cooperative with interview or physical. Demanding PO food despite warnings of hyperglycemia. OBJECTIVE: Vital Signs Period Temp Pulse Resp BP Sys/[place] Pulse Ox Last 24 Hr 98.2 F-98.6 F 67-81 18-20 95-148/58-81 97-99 GENERAL: The patient is awake, alert, and fully oriented, in no acute distress. HEAD: Normal with no signs of trauma. EYES: PERRL, extraocular movements intact, sclera anicteric, conjunctiva clear. No ptosis. LUNGS: Breath sounds equal, clear to auscultation bilaterally HEART: CXR notable for dextrocardia, Regular rate and rhythm, S1, S2 without murmur, rub or gallop. ABDOMEN: Soft, nontender, nondistended, normoactive bowel sounds EXTREMITIES: 2+ pulses, warm, well-perfused, no edema. NEUROLOGICAL: Normal speech, gait not observed. PSYCH: Aggitated SKIN: Warm, dry, normal turgor, no rashes or lesions noted Laboratory Results - last 24 hr CBC, BMP 12/28/19 05:35 12/28/19 05:35 Glucose Results-Entire Visit 12/27/19 12/27/19 12/28/19 20:20 21:23 05:35 Random Glucose 499 mg/dL H* mg/dL 438 mg/dL H* mg/dL 413 mg/dL H* mg/dL (74-106) (74-106) (74-106) Anion Gap Anion Gap 7 MMOL/L (8-16) L 12/28/19 05:35 Active Medications Generic Name Dose Route Start Last Admin Trade Name Freq PRN Reason Stop Dose Admin Chlordiazepoxide HCl 25 mg 12/28/19 05:00 12/28/19 11:55 Librium - PO 12/28/19 23:01 25 mg [id number] FELA Administration Chlordiazepoxide HCl 10 mg 12/29/19 05:00 Librium - PO 12/29/19 23:01 [id number] FELA Chlordiazepoxide HCl 10 mg 12/30/19 05:00 Librium - PO 12/30/19 17:01 Q12H FELA Chlordiazepoxide HCl 10 mg 12/29/19 00:00 Librium - PO 12/30/19 00:00 Q4H PRN WITHDRAWAL(CONT SUBST) Chlordiazepoxide HCl 10 mg 12/31/19 05:00 Librium - PO 12/31/19 05:01 ONCE@0500 ONE Enoxaparin Sodium 40 mg 12/28/19 10:00 12/28/19 09:00 Lovenox - SQ 40 mg DAILY FELA Administration Folic Acid 1 mg 12/28/19 10:00 12/28/19 09:00 Folic Acid - PO 1 mg DAILY FELA Administration Insulin Aspart 1 vial 12/28/19 16:30 Novolog Vial Sliding Scale - SQ ACHS FELA Protocol Potassium Chloride 40 meq 12/28/19 10:00 12/28/19 10:54 K-Dur - PO 12/28/19 22:00 40 meq BID FELA Administration Thiamine HCl 100 mg 12/28/19 10:00 12/28/19 09:00 Vitamin B1 - PO 100 mg DAILY FELA Administration ASSESSMENT/PLAN: 59 year old female patient with past medical history that includes NIDDM, Asthma, Depression, 'heart palpitations', crack cocaine and alcohol use, CVA that was 'three years ago', , Hysterectomy due to uterine cancer and finished chemo, and Thyroidectomy due to a thyroid lump, presented to the emergency room from [facility] for hyperglycemia (glucose at 659) and hypokalemia (K at 2.7). XR L Foot: Obliquely oriented fracture through the distal fibula with slight lateral displacement of the distal segment and adjacent soft tissue swelling. CXR: Dextrocardia EKG: NSR w/ prolonged QT NIDDM w/UNCONTROLLED HYPERGLYCEMIA -Blood Sugar in ED 499 -NPO -Bannana Bag given in ED -Insulin initially deferred secondary to Hypokalemia -ISS Restarted -ACHS BG Monitoring -Will consider starting Basal Bolus after 24 hours of Sliding Scale HYPOKALEMIA - K+ 3.4 in ED - IV KCl refused 2/2 Burning. PO K started 40 BID - Monitor Potassium ALCOHOL WITHDRAWAL - CIWA score at [facility]: 23 - Librium Protocol - Banana Bag given in ED - Thiamine and Folic Acid daily CRACK/COCAINE INTOXICATION -Monitor for signs of Aggitation LEFT STABLE LATERAL MALLEOLUS FRACTURE -Per Ortho -No Surgical Intervention at this time -Ptn placed in air cast -No NSAIDS Dextrocardia -Noted on CXR FEN -No standing fluids -Monitor BMP, BG -Diabetic Diet DVT PPx - Lovenox 40 SQ Visit type - Emergency Visit Emergency Visit: Yes ED Registration Date: 12/27/19 Care time: The patient presented to the Emergency Department on the above date and was hospitalized for further evaluation of their emergent condition. - New Patient This patient is new to me today: Yes Date on this admission: 12/28/19 - Critical Care Critical Care patient: No - Discharge Referral Referred to [facility] Med P.C.: No ATTENDING PHYSICIAN STATEMENT I saw and evaluated the patient. I reviewed the resident's note and discussed the case with the resident. I agree with the resident's findings and plan as documented. SUBJECTIVE: OBJECTIVE: ASSESSMENT AND PLAN:
[2019-12-28] MEDS ORDERED: INSULIN SLIDING SCALE (NOVOLOG) 1 VIAL SQ ONE (16:29)
[2019-12-28] MEDS: INSULIN SLIDING SCALE (NOVOLOG) 1 VIAL SQ SCH ×2 (17:25→22:56)
[2019-12-29] MEDS ORDERED: chlordiazePOXIDE HCL 10 MG CAPSULE PO PRN
[2019-12-29 00:40] VITALS: BMI 26.5
[2019-12-29] MEDS: chlordiazePOXIDE HCL 10 MG CAPSULE PO SCH ×4 (06:08→22:24)
[2019-12-29] MEDS: INSULIN SLIDING SCALE (NOVOLOG) 1 VIAL SQ SCH ×4 (06:56→22:36)
--- NOTE | 2019-12-29 07:49 | PN ---
Progress Note, Physician Chief Complaint: No new complaint History of Present Illness: 59-year-old female transferred from [facility] was admitted for detox multiple comorbidities history of polysubstance abuse active alcohol, crack cocaine, anxiety, depression, uncontrolled type 2 diabetes mellitus, uterine cancer status post hysterectomy and chemotherapy on transfer patient was having multiple electrolyte abnormality including hypomagnesemia, hypokalemia and hypophosphatemia in the setting of acute alcohol withdrawal - Current Medication List Current Medications: Active Medications Chlordiazepoxide HCl (Librium -) 10 mg PO [id number] [facility] Stop: 12/29/19 23:01 Last Admin: 12/29/19 06:08 Dose: 10 mg Documented by: Chlordiazepoxide HCl (Librium -) 10 mg PO Q12H [facility] Stop: 12/30/19 17:01 Chlordiazepoxide HCl (Librium -) 10 mg PO Q4H PRN PRN Reason: WITHDRAWAL(CONT SUBST) Stop: 12/30/19 00:00 Chlordiazepoxide HCl (Librium -) 10 mg PO ONCE@0500 ONE Stop: 12/31/19 05:01 Enoxaparin Sodium (Lovenox -) 40 mg SQ DAILY [facility] Last Admin: 12/28/19 09:00 Dose: 40 mg Documented by: Folic Acid (Folic Acid -) 1 mg PO DAILY [facility] Last Admin: 12/28/19 09:00 Dose: 1 mg Documented by: Insulin Aspart (Novolog Vial Sliding Scale -) 1 vial SQ [facility]; Protocol Last Admin: 12/29/19 06:56 Dose: 8 units Documented by: Thiamine HCl (Vitamin B1 -) 100 mg PO DAILY [facility] Last Admin: 12/28/19 09:00 Dose: 100 mg Documented by: - Objective Vital Signs: Vital Signs Temperature 98.2 F 12/29/19 06:00 Pulse Rate 71 12/29/19 06:00 Respiratory Rate 18 12/29/19 06:00 Blood Pressure 140/81 12/29/19 06:00 O2 Sat by Pulse Oximetry (%) 99 12/29/19 06:00 Middle-aged female,not in distress HEENT mucous membranes moist, no anemia, no jaundice, PERRLA, no nystagmus Neck: No JVD, supple, no bruit, thyroid palpably normal, normal carotid pulsations. Chest: Nontender, clear to auscultation bilaterally CVS: S1-S2 regular no murmur/gallop/rub Abdomen: Nondistended, soft, bowel sounds present. Extremities: No edema., No Calf tenderness, pulses present [employer] REPAIRER: AO X3 , no gross motor sensory deficit Labs: CBC, BMP 12/29/19 07:10 12/29/19 07:10 Magnesium 1.6 Problem List - Problems (1) Alcohol dependence with withdrawal Assessment/Plan: Continue current management of alcohol withdrawal, follow-up electrolytes observe closely for DTs and withdrawal seizures. Problems reviewed: Yes Code(s): F10.239 - ALCOHOL DEPENDENCE WITH WITHDRAWAL, UNSPECIFIED Qualifiers: (2) Hyperglycemia Assessment/Plan: Admitted with severe hypoglycemia, Fingersticks are poorly controlled we will follow-up hemoglobin A1c level and Levemir 14 units will optimize as needed. Problems reviewed: Yes Code(s): R73.9 - HYPERGLYCEMIA, UNSPECIFIED (3) Fracture of distal fibula Assessment/Plan: Left ankle fracture: Xray reveals left ankle distal fibula fracture: as per ortho: No orthopedic surgical intervention at this time, weight-bearing as tolerated in her Cam boot Problems reviewed: Yes Code(s): S82.839A - OTH FRACTURE OF UPPER AND LOWER END OF UNSP FIBULA, INIT (4) Asthma Assessment/Plan: Stable continue PRN albuterol Problems reviewed: Yes Code(s): J45.909 - UNSPECIFIED ASTHMA, UNCOMPLICATED Qualifiers: Asthma severity: unspecified severity Asthma persistence: unspecified Asthma complication type: unspecified Qualified Code(s): J45.909 - Unspecified asthma, uncomplicated (5) Bipolar II disorder Assessment/Plan: Today QTC is 446 will resume Abilify and Sinemet will replete magnesium today's magnesium level is 1.6 Problems reviewed: Yes Code(s): F31.81 - BIPOLAR II DISORDER (6) Hypercholesterolemia Assessment/Plan: Continue Crestor Problems reviewed: Yes Code(s): E78.00 - PURE HYPERCHOLESTEROLEMIA, UNSPECIFIED (7) Hypokalemia Assessment/Plan: Repleted follow-up potassium level Problems reviewed: Yes Code(s): E87.6 - HYPOKALEMIA (8) Hypomagnesemia Assessment/Plan: Repleted follow-up magnesium level continue p.o. magnesium Problems reviewed: Yes Code(s): E83.42 - HYPOMAGNESEMIA (9) Hypophosphatemia Assessment/Plan: Repleted Problems reviewed: Yes Code(s): E83.39 - OTHER DISORDERS OF PHOSPHORUS METABOLISM
[2019-12-29 08:11] LABS: BASO % 0.3 % (0-2.0); EOS % 1.4 % (0-4.5); HEMATOCRIT 37.4 % (32.4-45.2); HEMOGLOBIN 12.6 GM/dL (10.7-15.3); MCH 31.5 pg (25.7-33.7); MCHC 33.6 g/dl (32.0-36.0); MEAN CELL VOLUME 93.6 fl (80-96); MEAN PLT VOLUME 8.9 fl (7.5-11.1); MONO % 7.4 % (3.8-10.2); NEUT % 47.9 % (42.8-82.8); PLATELET COUNT 266 K/MM3 (134-434); RBC 3.99 M/mm3 (3.60-5.2); WHITE BLOOD COUNT 6.4 K/mm3 (4.0-10.0)
[2019-12-29 08:29] LABS: ALBUMIN 2.5 g/dl (3.4-5.0); BLOOD UREA NITROGEN 8.8 mg/dL (7-18); CALCIUM 8.5 mg/dL (8.5-10.1); CREATININE 0.7 mg/dL (0.55-1.3); MAGNESIUM 1.6 mg/dL (1.8-2.4); PHOSPHOROUS 2.6 mg/dL (2.5-4.9); POTASSIUM 3.6 mmol/L (3.5-5.1)
[2019-12-29 08:30] LABS: BILIRUBIN,TOTAL 0.4 mg/dL (0.2-1); TOT PROT 5.6 g/dl (6.4-8.2)
[2019-12-29] MEDS: FOLIC ACID 1 MG TABLET (FP) PO SCH (10:30)
[2019-12-29] MEDS: ENOXAPARIN NA (PORCINE) 40 MG/0.4 ML DISP.SYRIN SQ SCH (10:30)
[2019-12-29] MEDS: THIAMINE HCL 100 MG TABLET (FP) PO SCH (10:30)
[2019-12-29] MEDS ORDERED: MAGNESIUM SULF 50% (8.12 MEQ/2 ML-1 GM VIAL) IVPB ONE (12:56)
[2019-12-29] MEDS: MAGNESIUM SULFATE IN WATER 2 GM/50 ML IVPB IVPB ONE ×2 (14:00→15:27)
[2019-12-29] MEDS ORDERED: MAGNESIUM OXIDE 400 MG TABLET (FP) PO ONE (15:45)
[2019-12-29] MEDS ORDERED: PT OWN MED DRAWER 7, Y5N ONE (20:55)
[2019-12-29] MEDS ORDERED: INSULIN (LEVEMIR) 100 UNITS/ML UNITS SQ SCH (22:00)
[2019-12-29] MEDS: ARIPiprazole 20 MG TABLET PO SCH (22:23)
[2019-12-29] MEDS: ROSUVASTATIN CA 20 MG TABLET (FP) PO SCH (22:23)
[2019-12-29] MEDS: MAGNESIUM OXIDE 400 MG TABLET (FP) PO SCH (22:24)
[2019-12-30] MEDS: INSULIN SLIDING SCALE (NOVOLOG) 1 VIAL SQ SCH ×4 (06:16→22:01)
[2019-12-30] MEDS: chlordiazePOXIDE HCL 10 MG CAPSULE PO SCH ×2 (06:16→17:09)
--- NOTE | 2019-12-30 08:03 | PN ---
Teaching Attending Note Name of Resident: Evi Hines ATTENDING PHYSICIAN STATEMENT I saw and evaluated the patient. I reviewed the resident's note and discussed the case with the resident. I agree with the resident's findings and plan as documented. SUBJECTIVE: Patient remained comfortable no agitation seizure no overnight arrhythmia OBJECTIVE: Vital Signs Temperature 97.8 F 12/30/19 06:00 Pulse Rate 80 12/30/19 06:00 Respiratory Rate 18 12/30/19 06:00 Blood Pressure 135/70 12/30/19 06:00 O2 Sat by Pulse Oximetry (%) 99 12/30/19 06:00 Middle-aged female,not in distress HEENT mucous membranes moist, no anemia, no jaundice, PERRLA, no nystagmus Neck: No JVD, supple, no bruit, thyroid palpably normal, normal carotid pulsations. Chest: Nontender, clear to auscultation bilaterally CVS: S1-S2 regular no murmur/gallop/rub Abdomen: Nondistended, soft, bowel sounds present. Extremities: No edema., No Calf tenderness, pulses present DESIGNER: AO X3 , no gross motor sensory deficit CBC, BMP 12/30/19 06:46 12/30/19 06:46 Magnesium 1.9 Active Medications Aripiprazole (Abilify) 20 mg PO HS [facility] Last Admin: 12/29/19 22:23 Dose: 20 mg Documented by: Chlordiazepoxide HCl (Librium -) 10 mg PO Q12H [facility] Stop: 12/30/19 17:01 Last Admin: 12/30/19 06:16 Dose: 10 mg Documented by: Chlordiazepoxide HCl (Librium -) 10 mg PO ONCE@0500 ONE Stop: 12/31/19 05:01 Enoxaparin Sodium (Lovenox -) 40 mg SQ DAILY [facility] Last Admin: 12/29/19 10:30 Dose: Not Given Documented by: Folic Acid (Folic Acid -) 1 mg PO DAILY [facility] Last Admin: 12/29/19 10:30 Dose: Not Given Documented by: Insulin Aspart (Novolog Vial Sliding Scale -) 1 vial SQ [facility]; Protocol Last Admin: 12/30/19 06:16 Dose: 2 units Documented by: Insulin Detemir (Levemir Vial) 12 units SQ [facility] Last Admin: 12/29/19 22:37 Dose: 12 units Documented by: Magnesium Oxide (Mag-Ox -) 400 mg PO BID [facility] Last Admin: 12/29/19 22:24 Dose: 400 mg Documented by: Rosuvastatin Calcium (Crestor -) 40 mg PO HS [facility] Last Admin: 12/29/19 22:23 Dose: 40 mg Documented by: Sitagliptin Phosphate (Januvia -) 100 mg PO 0700 [facility] Last Admin: 12/30/19 06:15 Dose: 100 mg Documented by: Thiamine HCl (Vitamin B1 -) 100 mg PO DAILY [facility] Last Admin: 12/29/19 10:30 Dose: Not Given Documented by: ASSESSMENT AND PLAN:59-year-old female transferred from [facility] was admitted for detox multiple comorbidities history of polysubstance abuse active alcohol, crack cocaine, anxiety, depression, uncontrolled type 2 diabetes mellitus, uterine cancer status post hysterectomy and chemotherapy on transfer patient was having multiple electrolyte abnormality including hypomagnesemia, hypokalemia and hypophosphatemia in the setting of acute alcohol withdrawal. Plan of care: Fingersticks are uncontrolled follow-up hemoglobin A1c and optimize glycemic control increase dose of Levemir to 15 units continue correction dose pre-meal insulin coverage. QTC 460 ms on monitor, magnesium level is 1.9 will DC quality assurance monitor chassis patient can be transferred to general floor. Disposition: Patient wants to go for drug rehab program at [facility]. Discussed with the team. Problem List - Problems (1) Alcohol dependence with withdrawal Assessment/Plan: Continue current management of alcohol withdrawal, follow-up electrolytes obse rve closely for DTs and withdrawal seizures. Code(s): F10.239 - ALCOHOL DEPENDENCE WITH WITHDRAWAL, UNSPECIFIED Qualifiers: (2) Hyperglycemia Assessment/Plan: Admitted with severe hypoglycemia, Fingersticks are poorly controlled we will follow-up hemoglobin A1c level and Levemir 15 units will optimize as needed. Code(s): R73.9 - HYPERGLYCEMIA, UNSPECIFIED (3) Fracture of distal fibula Assessment/Plan: Left ankle fracture: Xray reveals left ankle distal fibula fracture: as per ortho: No orthopedic surgical intervention at this time, weight-bearing as tolerated in her Cam boot Code(s): S82.839A - OTH FRACTURE OF UPPER AND LOWER END OF UNSP FIBULA, INIT (4) Asthma Assessment/Plan: Stable continue PRN albuterol Code(s): J45.909 - UNSPECIFIED ASTHMA, UNCOMPLICATED Qualifiers: Asthma severity: unspecified severity Asthma persistence: unspecified Asthma complication type: unspecified Qualified Code(s): J45.909 - Unspecified asthma, uncomplicated (5) Bipolar II disorder Assessment/Plan: Today QTC is 446 will resume Abilify and Sinemet will replete magnesium today's magnesium level is 1.6 Code(s): F31.81 - BIPOLAR II DISORDER (6) Hypercholesterolemia Assessment/Plan: Continue Crestor Code(s): E78.00 - PURE HYPERCHOLESTEROLEMIA, UNSPECIFIED (7) Hypokalemia Assessment/Plan: Repleted follow-up potassium level Code(s): E87.6 - HYPOKALEMIA (8) Hypomagnesemia Assessment/Plan: Repleted follow-up magnesium level continue p.o. magnesium Code(s): E83.42 - HYPOMAGNESEMIA (9) Hypophosphatemia Assessment/Plan: Repleted Code(s): E83.39 - OTHER DISORDERS OF PHOSPHORUS METABOLISM
--- NOTE | 2019-12-30 08:17 | PN ---
Physical Exam: SUBJECTIVE: Patient seen and examined. Accepted insulin sliding scale, refused further BGM checks. Agitated and hostile towards nursing staff. OBJECTIVE: Vital Signs Period Temp Pulse Resp BP Sys/De La Paz Pulse Ox Last 24 Hr 97.8 F-98.8 F 55-80 14-20 114-135/61-80 97-99 GENERAL: The patient is awake, alert, and fully oriented, in no acute distress. LUNGS: Breath sounds equal, clear to auscultation bilaterally HEART: dextrocardia. Regular rate and rhythm, S1, S2 without murmur, rub or gallop. ABDOMEN: Soft, nontender, nondistended, normoactive bowel sounds EXTREMITIES: 2+ pulses, warm, well-perfused, no edema. NEUROLOGICAL: unable to assess PSYCH: Agitated SKIN: no rashes or lesions noted Laboratory Results - last 24 hr 12/28/19 12/29/19 12/29/19 00:50 07:10 07:10 WBC 6.4 RBC 3.99 Hgb 12.6 Hct 37.4 MCV 93.6 MCH 31.5 MCHC 33.6 RDW 14.0 Plt Count 266 MPV 8.9 Absolute Neuts (auto) 3.1 Neutrophils % 47.9 D Lymphocytes % 43.0 H D Monocytes % 7.4 Eosinophils % 1.4 D Basophils % 0.3 Nucleated RBC % 0 Sodium 137 Potassium 3.6 Chloride 104 Carbon Dioxide 27 Anion Gap 6 L BUN 8.8 Creatinine 0.7 Est GFR (CKD-EPI)AfAm 108.38 Est GFR (CKD-EPI)NonAf 93.51 POC Glucometer Random Glucose 284 H Calcium 8.5 Phosphorus 2.6 Magnesium 1.6 L Total Bilirubin 0.4 AST 9 L ALT 10 L Alkaline Phosphatase 59 Total Protein 5.6 L Albumin 2.5 L COVID-19 (KATHLEEN) Not detected 12/29/19 22:34 WBC RBC Hgb Hct MCV MCH MCHC RDW Plt Count MPV Absolute Neuts (auto) Neutrophils % Lymphocytes % Monocytes % Eosinophils % Basophils % Nucleated RBC % Sodium Potassium Chloride Carbon Dioxide Anion Gap BUN Creatinine Est GFR (CKD-EPI)AfAm Est GFR (CKD-EPI)NonAf POC Glucometer 415 Random Glucose Calcium Phosphorus Magnesium Total Bilirubin AST ALT Alkaline Phosphatase Total Protein Albumin COVID-19 (KATHLEEN) Active Medications Generic Name Dose Route Start Last Admin Trade Name Freq PRN Reason Stop Dose Admin Aripiprazole 20 mg 12/29/19 22:00 12/29/19 22:23 Abilify PO 20 mg HS FELA Administration Chlordiazepoxide HCl 10 mg 12/30/19 05:00 12/30/19 06:16 Librium - PO 12/30/19 17:01 10 mg Q12H FELA Administration Chlordiazepoxide HCl 10 mg 12/31/19 05:00 Librium - PO 12/31/19 05:01 ONCE@0500 ONE Enoxaparin Sodium 40 mg 12/28/19 10:00 12/29/19 10:30 Lovenox - SQ Not Given DAILY FELA Folic Acid 1 mg 12/28/19 10:00 12/29/19 10:30 Folic Acid - PO Not Given DAILY FELA Insulin Aspart 1 vial 12/28/19 16:30 12/30/19 06:16 Novolog Vial Sliding Scale - SQ 2 units ACHS FELA Administration Protocol Insulin Detemir 12 units 12/29/19 22:00 12/29/19 22:37 Levemir Vial SQ 12 units HS FELA Administration Magnesium Oxide 400 mg 12/29/19 22:00 12/29/19 22:24 Mag-Ox - PO 400 mg BID FELA Administration Rosuvastatin Calcium 40 mg 12/29/19 22:00 12/29/19 22:23 Crestor - PO 40 mg HS FELA Administration Sitagliptin Phosphate 100 mg 12/30/19 07:00 12/30/19 06:15 Januvia - PO 100 mg 0700 FELA Administration Thiamine HCl 100 mg 12/28/19 10:00 12/29/19 10:30 Vitamin B1 - PO Not Given DAILY FELA Imaging: * XR L Foot: Obliquely oriented fracture through the distal fibula with slight lateral displacement of the distal segment and adjacent soft tissue swelling. * CXR: Dextrocardia * EKG: NSR w/ prolonged QT ASSESSMENT/PLAN: 59 y.o F PMH NIDDM, Asthma, Depression, crack cocaine and alcohol use disorder, CVA 3 years ago, , Hysterectomy 2/2 uterine cancer s/p chemotherapy, and Thyroidectomy 2/2 thyroid nodule, presented to the emergency room from [facility] for hyperglycemia (glucose 659) and hypokalemia (K 2.7). #NIDDM, uncontrolled hyperglycemia -BGMs improving, continue novolog insulin sliding scale -continue BGMs ACHS, strict glycemic control -Added levemir 12U HS -Home januvia 100mg PO resumed -holding home metformin -diabetic diet #Hypokalemia -resolved -close monitoring while pt on insulin -replete prn #EtOH Withdrawal -Librium Protocol day 4/ -Thiamine and Folic Acid daily -continue CIWA checks #Crack/ cocaine abuse -Monitor for signs of Agitation -counselled on health risks associated w/ use #Left lateral malleolus fx -stable -Per Ortho, No Surgical Intervention at this time. Air cast. Avoid NSAIDs. f/u outpatient #Dextrocardia -Noted on CXR -no acute issues #FEN -No standing fluids -K+ & mag repleted -Diabetic Diet DVT PPX -Lovenox 40 SQ Dispo: stable for transfer to / f/u bed at [facility] for rehab Visit type - Emergency Visit Emergency Visit: No - New Patient This patient is new to me today: No - Critical Care Critical Care patient: No ATTENDING PHYSICIAN STATEMENT I saw and evaluated the patient. I reviewed the resident's note and discussed the case with the resident. I agree with the resident's findings and plan as documented. SUBJECTIVE: OBJECTIVE: ASSESSMENT AND PLAN:
[2019-12-30 08:21] LABS: BASO % 0.3 % (0-2.0); HEMATOCRIT 38.4 % (32.4-45.2); HEMOGLOBIN 13.1 GM/dL (10.7-15.3); LYMPH % 41.1 % (8-40); MCH 31.5 pg (25.7-33.7); MEAN CELL VOLUME 92.7 fl (80-96); MEAN PLT VOLUME 8.8 fl (7.5-11.1); MONO % 8.4 % (3.8-10.2); NEUT % 49.2 % (42.8-82.8); PLATELET COUNT 281 K/MM3 (134-434); RBC 4.14 M/mm3 (3.60-5.2); RDW 13.8 % (11.6-15.6); WHITE BLOOD COUNT 6.6 K/mm3 (4.0-10.0)
[2019-12-30 08:40] LABS: BLOOD UREA NITROGEN 9.1 mg/dL (7-18); CALCIUM 8.5 mg/dL (8.5-10.1); CREATININE 0.7 mg/dL (0.55-1.3); MAGNESIUM 1.9 mg/dL (1.8-2.4); POTASSIUM 3.7 mmol/L (3.5-5.1)
[2019-12-30] MEDS ORDERED: CARBIDOPA/LEVODOPA 25/100 TABLET (FP) PO SCH (10:00)
[2019-12-30] MEDS: FOLIC ACID 1 MG TABLET (FP) PO SCH (10:32)
[2019-12-30] MEDS: ENOXAPARIN NA (PORCINE) 40 MG/0.4 ML DISP.SYRIN SQ SCH (10:32)
[2019-12-30] MEDS: MAGNESIUM OXIDE 400 MG TABLET (FP) PO SCH ×2 (10:32→21:58)
[2019-12-30] MEDS: THIAMINE HCL 100 MG TABLET (FP) PO SCH (10:32)
[2019-12-30] MEDS ORDERED: FLUCONAZOLE 150 MG TABLET PO ONE (16:00)
[2019-12-30] MEDS ORDERED: PT OWN MED DRAWER 7, Y5N ONE ×2 (16:43→21:42)
[2019-12-30] MEDS: ROSUVASTATIN CA 20 MG TABLET (FP) PO SCH (21:55)
[2019-12-30] MEDS: ARIPiprazole 20 MG TABLET PO SCH (21:58)
[2019-12-30] MEDS ORDERED: INSULIN (LEVEMIR) 100 UNITS/ML UNITS SQ SCH (22:00)
[2019-12-30] MEDS ORDERED: MELATONIN 5 MG TABLETS PO ONE (22:51)
[2019-12-31] MEDS ORDERED: ARIPiprazole 10 MG TABLET PO SCH (00:38)
[2019-12-31] MEDS ORDERED: chlordiazePOXIDE HCL 10 MG CAPSULE PO ONE (05:00)
[2019-12-31] MEDS: INSULIN SLIDING SCALE (NOVOLOG) 1 VIAL SQ SCH ×2 (06:27→11:55)
[2019-12-31 07:30] LABS: HEMATOCRIT 40.3 % (32.4-45.2); HEMOGLOBIN 13.5 GM/dL (10.7-15.3); MCH 31.7 pg (25.7-33.7); MCHC 33.4 g/dl (32.0-36.0); MEAN CELL VOLUME 94.9 fl (80-96); MEAN PLT VOLUME 8.5 fl (7.5-11.1); PLATELET COUNT 293 K/MM3 (134-434); RBC 4.25 M/mm3 (3.60-5.2); RDW 14.2 % (11.6-15.6); WHITE BLOOD COUNT 6.3 K/mm3 (4.0-10.0)
[2019-12-31 07:57] LABS: POTASSIUM 3.9 mmol/L (3.5-5.1)
[2019-12-31 08:06] LABS: BLOOD UREA NITROGEN 7.3 mg/dL (7-18); CALCIUM 8.7 mg/dL (8.5-10.1); CREATININE 0.8 mg/dL (0.55-1.3); MAGNESIUM 1.9 mg/dL (1.8-2.4)
[2019-12-31] MEDS: FOLIC ACID 1 MG TABLET (FP) PO SCH (09:05)
[2019-12-31] MEDS: MAGNESIUM OXIDE 400 MG TABLET (FP) PO SCH (09:05)
[2019-12-31] MEDS: ENOXAPARIN NA (PORCINE) 40 MG/0.4 ML DISP.SYRIN SQ SCH (09:05)
[2019-12-31] MEDS: THIAMINE HCL 100 MG TABLET (FP) PO SCH (09:06)
[2019-12-31] MEDS ORDERED: TRIMETHOBENZAMIDE HCL 300 MG CAPSULE PO ONE (12:00)
--- NOTE | 2019-12-31 15:50 | DS ---
Physical Exam: SUBJECTIVE: Patient seen and examined, in no acute distress, no evidence of withdrawal, or signs of hyperglycemia. OBJECTIVE: Vital Signs Period Temp Pulse Resp BP Sys/De La Paz Pulse Ox Last 24 Hr 97.5 F-98.9 F 63-80 16-18 105-133/69-89 95-99 PHYSICAL EXAM GENERAL: The patient is awake, alert, and fully oriented, in no acute distress. HEAD: Normal with no signs of trauma. EYES: PERRL, extraocular movements intact, sclera anicteric, conjunctiva clear. NECK: Trachea midline, full range of motion, supple. LUNGS: Breath sounds equal, clear to auscultation bilaterally, no wheezes, no crackles, no accessory muscle use. HEART: Dextrocardia on CXR. Regular rate and rhythm, S1, S2 without murmur, rub or gallop. ABDOMEN: Soft, nontender, nondistended, normoactive bowel sounds, EXTREMITIES: Cast on L ankle. 2+ pulses, warm, well-perfused, no edema. NEUROLOGICAL: Normal speech, gait not observed. PSYCH: Normal mood, normal affect. SKIN: Warm, dry, normal turgor, no rashes or lesions noted. LABS Laboratory Results - last 24 hr 12/31/19 12/31/19 12/31/19 06:49 06:49 11:55 WBC 6.3 RBC 4.25 Hgb 13.5 Hct 40.3 MCV 94.9 MCH 31.7 MCHC 33.4 RDW 14.2 Plt Count 293 MPV 8.5 Sodium 137 Potassium 3.9 Chloride 103 Carbon Dioxide 29 Anion Gap 6 L BUN 7.3 Creatinine 0.8 Est GFR (CKD-EPI)AfAm 92.22 Est GFR (CKD-EPI)NonAf 79.57 POC Glucometer 285 Random Glucose 246 H Calcium 8.7 Magnesium 1.9 HOSPITAL COURSE: Date of Admission:12/27/19 XR L Foot/Ankle: Obliquely oriented fracture through the distal fibula with slight lateral displacement of the distal segment and adjacent soft tissue swelling. Generalized osteopenia. Plantar calcaneal spur. Degenerative changes are demonstrated at the first MTP and scattered interphalangeal joint spaces spur. CXR: Dextrocardia EKG: NORMAL SINUS RHYTHM NONSPECIFIC T WAVE ABNORMALITY PROLONGED QT Date of Discharge: 12/31/19 59 year old female patient with past medical history that includes NIDDM, Asthma, Depression, 'heart palpitations', crack cocaine and alcohol use, CVA that was 'three years ago', , Hysterectomy due to uterine cancer and finished chemo, and Thyroidectomy due to a thyroid lump, presented to the emergency room from [facility] for hyperglycemia (glucose at 659) and hypokalemia (K at 2.7). The patient reports that she does not take insulin at home and that she usually has a blood sugar reading such as '145' or '109' when she checks it. She reports that she takes Metformin 750 BID. On the day of admission the patient reports feeling itchy and has general restless movements of her arms and legs which she attributes to withdrawal. She drinks a couple beers a day with her last drink at 4am. The patient also reports using crack cocaine since 4 months ago. She says that 3 months ago and 3 weeks ago she was high and she 'passed out' while high and woke up incontinent of urine/stool. She did not have any bruised or bit tongue on waking. She denies any past syncope. In the emergency room, the patient's potassium was 3.0 and her glucose 438. She was given 40 PO KCl and 2 bags of 10mEq IV KCl. The patient was subsequently transferred to the medical floors where she was started on librium protocol, IV Potassium, and ISS to control her blood glucose. Her trazadone was stopped 2/2 prolonged QT. On review of the [facility] records it was noted that she had positive Syphilis serologies and RPR. Department of Health was contacted and there were no records of treatment or disease able to be obtained. Due to the patient's PCN allergy, she was prescribed Doxy for 28 days and instructed to FU w/ TRACIE. Additionally, her Me tformin was increased to 1000 BID for better BG control. A XR of the L foot noted a distal fracture which was appreciated by Ortho and found to not require surgical repair. At the time of discharge, the patient was medically stable for transfer to [facility] for continued rehabilitation. Minutes to complete discharge: 36 Discharge Summary Problems reviewed: Yes Reason For Visit: ALCOHOL DEPENDENCE WITH WITHDRAWAL, HYPERGLYCEMIA Current Active Problems Positive serology for syphilis (Acute) Alcohol dependence with withdrawal (Chronic) Fracture of distal fibula (Chronic) Hyperglycemia (Chronic) Condition: Stable - Instructions Diet, Activity, Other Instructions: Your visit: You were admitted to the hospital from [facility] for elevated blood sugar levels and low potassium. You were treated with medication to reduce your blood sugar, increase your potassium and continuation of your alcohol detox with improvement of your symptoms. Of note during your stay you were found to have: -During your stay at [facility], it was found that you had positive Syphilis results. -A right sided heart, for which we have referred you to a Pipefitter -A fracture in your left leg for which we have referred you to an orthopedist. Medications changes: -Please start Doxycyclin 100mg Twice a Day for 28 days for resolution of your Syphilis. After treatment please follow up with the department of health -During your stay your Metformin was stopped in favor of Insulin. Please continue your Metformin once discharged. Increase the dose to 1 gram two times per day. -We have started Melatonin 10mg per night for your sleep. -During your stay, your carbidopa/levodopa was stopped, you may continue it after discharge -During your stay, your cyclobenzaprine was stopped, you may continue it after your discharge -During your stay, your trazadone was stopped due to it's effect on your heart. Please do not continue it. -Continue to take all other home medications as prescribed. Follow up: - Please follow-up with Dr. Ramos (Substance Abuse) at the rehab facility. - Please follow-up with your Corporate Recruiter, or if you do not have one, please see Dr. Moore (Endocrine) within 1 week for management. - Please follow-up with Dr. Fregoso (Orthopedics) to manage your leg fracture - Please follow-up with Dr. Hua (Cardiology) for evaluation of your heart. - Visit with your Primary Care Provider in 2 weeks. If you do not have a primary care provider you may make an appointment with Dr. Barnes at Dr. Ann's clinic at the [facility] located at [address] [place] [address] ([phone]). Additional Instructions: -You are being discharged to rehab at [facility]. -Please return to the Emergency Department if you experience worsening pain, fevers, chills, shortness of breath, or chest pain, or if you experience any worsening, new or concerning symptoms. Referrals: Miko Ann MD [Staff Physician] - 1 Week Blaire Hua MD [Staff Physician] - 1 Week Wade Fregoso MD [Staff Physician] - 1 Week Rebecca Moore MD [Staff Physician] - 1 Week Chava Ramos DO [Staff Physician] - 1 Week Disposition: I.P. ALCOHOL/SUBS ABUSE REHAB - Home Medications Comprehensive Discharge Medication List: Ambulatory Orders Aripiprazole [Abilify] 20 mg PO HS 09/15/18 Carbidopa/Levodopa [Carbidopa-Levodopa 25-100 Tab] 1 each PO DAILY 12/28/19 Cyclobenzaprine HCl 5 mg PO DAILY 12/28/19 Rosuvastatin [Crestor -] 40 mg PO DAILY 12/28/19 Sitagliptin Phosphate [Januvia] 100 mg PO DAILY 12/28/19 Doxycycline Hyclate 100 mg PO BID 28 Days #56 tablet. MDD 12/31/19 Melatonin 10 mg PO HS 10 Days #10 capsule MDD 12/31/19 Metformin HCl [Glucophage] 1,000 mg PO BID 30 Days #60 tablet [facility] 199912/31/19 This patient is new to me today: No Emergency Visit: No Critical Care patient: No - Discharge Referral Referred to [facility] Med P.C.: No ATTENDING PHYSICIAN STATEMENT I saw and evaluated the patient. I reviewed the resident's note and discussed the case with the resident. I agree with the resident's findings and plan as documented. SUBJECTIVE: OBJECTIVE: ASSESSMENT AND PLAN:
[2019-12-31 16:02] VITALS: BP 141/91; PULSE 89; TEMP 97.2
--- NOTE | 2019-12-31 16:04 | PN ---
Teaching Attending Note Name of Resident: Darren Barnes ATTENDING PHYSICIAN STATEMENT I saw and evaluated the patient. I reviewed the resident's note and discussed the case with the resident. I agree with the resident's findings and plan as documented. SUBJECTIVE: Patient is comfortable with NAD OBJECTIVE: Vital Signs Temperature 98.2 F 12/31/19 08:37 Pulse Rate 63 12/31/19 08:37 Respiratory Rate 18 12/31/19 08:37 Blood Pressure 133/77 12/31/19 08:37 O2 Sat by Pulse Oximetry (%) 99 12/31/19 09:00 PE: per resident's note CBCD WBC 6.3 K/mm3 (4.0-10.0) 12/31/19 06:49 RBC 4.25 M/mm3 (3.60-5.2) 12/31/19 06:49 Hgb 13.5 GM/dL (10.7-15.3) 12/31/19 06:49 Hct 40.3 % (32.4-45.2) 12/31/19 06:49 MCV 94.9 fl (80-96) 12/31/19 06:49 MCHC 33.4 g/dl (32.0-36.0) 12/31/19 06:49 RDW 14.2 % (11.6-15.6) 12/31/19 06:49 Plt Count 293 K/MM3 (134-434) 12/31/19 06:49 MPV 8.5 fl (7.5-11.1) 12/31/19 06:49 CMP Sodium 137 mmol/L (136-145) 12/31/19 06:49 Potassium 3.9 mmol/L (3.5-5.1) 12/31/19 06:49 Chloride 103 mmol/L (98-107) 12/31/19 06:49 Carbon Dioxide 29 mmol/L (21-32) 12/31/19 06:49 Anion Gap 6 MMOL/L (8-16) L 12/31/19 06:49 BUN 7.3 mg/dL (7-18) 12/31/19 06:49 Creatinine 0.8 mg/dL (0.55-1.3) 12/31/19 06:49 Random Glucose 246 mg/dL (74-106) H 12/31/19 06:49 Calcium 8.7 mg/dL (8.5-10.1) 12/31/19 06:49 Total Bilirubin 0.4 mg/dL (0.2-1) 12/29/19 07:10 AST 9 U/L (15-37) L 12/29/19 07:10 ALT 10 U/L (13-61) L 12/29/19 07:10 Alkaline Phosphatase 59 U/L (45-117) 12/29/19 07:10 Total Protein 5.6 g/dl (6.4-8.2) L 12/29/19 07:10 Albumin 2.5 g/dl (3.4-5.0) L 12/29/19 07:10 CARDIAC ENZYMES Creatine Kinase 76 U/L (26-192) 12/27/19 21:23 Troponin I < 0.02 ng/ml (0.00-0.05) 12/27/19 21:23 Current Medications Generic Name Dose Route Start Last Admin Trade Name Freq PRN Reason Stop Dose Admin Aripiprazole 20 mg 12/31/19 00:38 Abilify PO HS FELA Enoxaparin Sodium 40 mg 12/28/19 10:00 12/31/19 09:05 Lovenox - SQ 40 mg DAILY FELA Administration Folic Acid 1 mg 12/28/19 10:00 12/31/19 09:05 Folic Acid - PO 1 mg DAILY FELA Administration Insulin Aspart 1 vial 12/28/19 16:30 12/31/19 11:55 Novolog Vial Sliding Scale - SQ 6 units ACHS FELA Administration Protocol Insulin Detemir 15 units 12/30/19 22:00 12/30/19 21:55 Levemir Vial SQ 15 units HS FELA Administration Magnesium Oxide 400 mg 12/29/19 22:00 12/31/19 09:05 Mag-Ox - PO 400 mg BID FELA Administration Rosuvastatin Calcium 40 mg 12/29/19 22:00 12/30/19 21:55 Crestor - PO 40 mg HS FELA Administration Sitagliptin Phosphate 100 mg 12/30/19 07:00 12/31/19 06:30 Januvia - PO 100 mg 0700 FELA Administration Thiamine HCl 100 mg 12/28/19 10:00 12/31/19 09:06 Vitamin B1 - PO 100 mg DAILY FELA Administration Home Medications Medication Instructions Recorded Aripiprazole [Abilify] 20 mg PO HS 09/15/18 Carbidopa/Levodopa 1 each PO DAILY 12/28/19 [Carbidopa-Levodopa 25-100 Tab] Cyclobenzaprine HCl 5 mg PO DAILY 12/28/19 Rosuvastatin [Crestor -] 40 mg PO DAILY 12/28/19 Sitagliptin Phosphate [Januvia] 100 mg PO DAILY 12/28/19 Doxycycline Hyclate 100 mg PO BID 28 Days #56 12/31/19 tablet.dr TAPIA 200 Melatonin 10 mg PO HS 10 Days #10 capsule 12/31/19 MDD 10 Metformin HCl [Glucophage] 1,000 mg PO BID 30 Days #60 tablet 12/31/19 MDD 1999 EKG shows NSR at 76/minute and QTc 488 with old T wave inversion in V1-V with no ST changes. CXR: dextrocardiac noted , and reviewed ASSESSMENT AND PLAN: This patient is a 59yof with Pmhx of NIDDM, Asthma, Depression, heart palpitations, crack cocaine and alcohol use, CVA ( 3yrs ago), , Hysterectomy due to uterine cancer and finished chemo, and Thyroidectomy due to a thyroid lump, who presented to the ED. from [facility] for hyperglycemia (glucose at 659) and hypokalemia (K at 2.7). #T2DM Uncontrolled presented with elevated BS : will continue her home meds since patient is noncompliant with her meds, going to [facility] detox. # Alcohol withdrawal: on librium protocol last dose today #Hx of polysubstance abuse: (crack/cocoaine) #Left ankle fracture: Xray reveals left ankle distal fibula fracture: as per ortho: No orthopedic surgical intervention at this time, weight-bearing as tolerated in her Cam boot or air cast. signs and symptoms of compartment syndrome and need to seek immediate care should new onset numbness, tingling, or significantly increasing pain occur. maintain strict elevation above the level of the heart for the next 3-4 days. keeping the splint clean and dry. avoiding NSAID medications. #Dextrocardia: on CXR #Hypokalemia : replete and follow #Covid is negative #Tobacco Use: Nicotine patch. DVT prophylaxis: Lovenox 40 mg will hold trazodone since elevated QTc 488, Qtc is 450 today, will dc patient on Melatonin for sleep since she takes Trazodone for insomnia and added magnesium to the melatonin. patient is going to [facility] rehab detox #RPR serology is positive, health department was called and this patient never had syphillis, Ratio is 1:1, will start the patient on Doxycycline 100mg po bid x 28 days.
== END 2019-12-31 17:50 | disposition other institution (70) | DRG 638 ==
LOC: JER 19:14 → JERBED 22:46 → J4S 12-28 20:04
PROVIDERS: ADMIT Internal Medicine; ATTEND Internal Medicine
DX: E11.65 Type 2 diabetes mellitus with hyperglycemia (principal); F10.230 Alcohol dependence with withdrawal, uncomplicated; E87.1 Hypo-osmolality and hyponatremia; Q24.0 Dextrocardia; E87.6 Hypokalemia; S82.892A Other fracture of left lower leg, initial encounter for closed fracture; E83.42 Hypomagnesemia; E88.09 Other disorders of plasma-protein metabolism, not elsewhere classified; F14.120 Cocaine abuse with intoxication, uncomplicated; F14.10 Cocaine abuse, uncomplicated; J45.909 Unspecified asthma, uncomplicated; Z88.0 Allergy status to penicillin; Z79.84 Long term (current) use of oral hypoglycemic drugs; F17.210 Nicotine dependence, cigarettes, uncomplicated; Z86.73 Personal history of transient ischemic attack (TIA), and cerebral infarction without residual deficits; E78.00 Pure hypercholesterolemia, unspecified; Z85.42 Personal history of malignant neoplasm of other parts of uterus; E83.39 Other disorders of phosphorus metabolism; F31.9 Bipolar disorder, unspecified; S82.402A Unspecified fracture of shaft of left fibula, initial encounter for closed fracture; W19.XXXA Unspecified fall, initial encounter; Y93.89 Activity, other specified; Y92.89 Other specified places as the place of occurrence of the external cause; Y99.8 Other external cause status; Z91.14 Patient's other noncompliance with medication regimen
CPT/HCPCS: 36415; 71045-TC-FY; 73610-TC-LT-FY; 73630-TC-LT; 80048; 80053; 81003; 82550; 82803; 82962; 83036; 83690; 83735; 84100; 84484; 85025; 85027; 93005; 93010; 99285-25; U0003

== ENCOUNTER 2019-12-31 18:02 | Inpatient (IN) | payer OTHER ==
[2019-12-31 18:25] VITALS: BMI 25.7
--- OUTSIDE RECORDS SUMMARY | 2019-12-31 18:38 | XMS ---
:1960 Author Organization [facility] Support Name Relationship Address Phone UE, UNEMPLOYED Unavailable Unavailable Unavailable UE Unavailable Unavailable Unavailable CALE SCHMIDT [address] [place] [id number] CALE SCHMIDT [address] Unavailable [place] [phone] Re-disclosure Warning The records that you are about to access may contain information from federally- assisted alcohol or drug abuse programs. If such information is present, then the following federally mandated warning applies: This information has been disclosed to you from records protected by federal confidentiality rules (42 CFR part 2). The federal rules prohibit you from making any further disclosure of this information unless further disclosure is expressly permitted by the written consent of the person to whom it pertains or as otherwise permitted by 42 CFR part 2. A general authorization for the release of medical or other information is NOT sufficient for this purpose. The Federal rules restrict any use of the information to criminally investigate or prosecute any alcohol or drug abuse patient.The records that you are about to access may contain highly sensitive health information, the redisclosure of which is protected by Article 27-F of the [facility] Public Health law. If you continue you may haveaccess to information: Regarding HIV / AIDS; Provided by facilities licensed or operated by the [facility] Office of Mental Health; or Provided by the [facility] Office for People With Developmental Disabilities. If such information is present, then the following [facility] mandated warning applies: This information has been disclosed to you from confidential records which are protected by state law. State law prohibits you from making any further disclosure of this information without the specific written consent of the person to whom it pertains, or as otherwise permitted by law. Any unauthorized further disclosure in violation of state law may result in a fine or fdc sentence or both. A general authorization for the release of medical or other information is NOT sufficient authorization for further disclosure. Insurance Providers Payer name Policy type Policy ID Covered Covered green party's Policy P ubaldo / Coverage green party ID relationship to [employer] ormation type lazo [employer]RIC MEDICARE [id number] SP [id number] HEALTH FIRST [id number] SP [id number] HEALTH FIRST [id number] SP [id number] MEDICARE MEDICAID [id number] SP [id number] PATRIC MEDICARE [id number] SP [id number] MEDICAID [id number] SP [id number] MEDICARE [id number] SP [id number] Results ID Date Data Source [id number] 12/28/2019 12:50:00 AM EDT [facility] Name Value Range Interpretation Description Data Sup porting Code Source(s) Document(s ) SARS [facility] coronavirus 2 RNA This lab was ordered by [facility] and reported by [facility]. ID Date Data Source [id number] 12/27/2019 02:00:00 PM EDT [facility] Name Value Range Interpretation Description Data Sup porting Code Source(s) Document(s ) SARS [facility] coronavirus 2 RNA This lab was ordered by [facility] and reported by [facility]. Procedure
--- NOTE | 2019-12-31 18:41 | HP ---
CAMRYN MUELLER Rehab Assess/Revision - Admission History Admitted to Rehab from: Medical/Surgical Date of Admission to Rehab: 12/31/2019 - Vital signs Vital Signs: Vital Signs Period Temp Pulse Resp BP Sys/De La Paz Pulse Ox Last 24 Hr 98.0 F 84 18 129/87 - Findings Detox History & Physical reviewed: Yes Concur with findings: Yes Comments/Additional Findings: PMHx: Asthma, DM, Palpitations, CVA. MHHx:Depression. Sub Use Hx: Alcohol use disorder. Crack. Marijuana. Nicotine. Declines nicotine patch. Alcohol detox completed while in-patient. States off MH meds x 5 days - Ordered Psych consult and repeat EKG. Comprehensive Discharge Medication List: Ambulatory Orders - reviewed. Inpatient Rehab Admission - Rehab Decision to Admit Inpatient rehab admission?: Yes - Initial Determination Are CD services needed?: Yes Free of communicable disease: Yes Not in need of hospitalization: Yes - Rehab Admission Criteria Previous failed treatment: Yes Poor recovery environment: Yes Comorbidities: Yes Lacks judgement: No Patient is meeting Inpatient Rehab admission criteria:: Yes
--- OUTSIDE RECORDS SUMMARY | 2019-12-31 18:45 | XMS ---
:1960 Author Organization [facility] Support Name Relationship Address Phone UE, UNEMPLOYED Unavailable Unavailable Unavailable UE Unavailable Unavailable Unavailable CALE SCHMIDT [address] [place] [id number] CALE SCHMIDT [address] Unavailable [place] [id number] Re-disclosure Warning The records that you are [...] is protected by Article 27-F of the [place] Public [facility] law. If you continue you may haveaccess to information: Regarding HIV / AIDS; Provided by facilities licensed or operated by the [place] Office of Mental Health; or Provided by the [facility] [facility] Office for People With Developmental Disabilities. If such information is present, then the following [place] [facility] mandated warning applies: This information has been [...] law may result in a fine or penitentiary sentence or both. A general authorization for the release of medical or other information is NOT sufficient authorization for further disclosure. Insurance Providers Payer name Policy type Policy ID Covered Covered alliance party's Policy P ubaldo / Coverage alliance party ID relationship to [employer] ormation type lazo PATRIC MEDICARE [id number] SP [id number] HEALTH FIRST [id number] SP [id number] HEALTH FIRST [id number] SP [id number] MEDICARE MEDICAID [id number] SP [id number] PATRIC MEDICARE [id number] SP [id number] MEDICAID [id number] SP [id number] MEDICARE [id number] SP [id number] Results ID Date Data Source [id number] 12/28/2019 12:50:00 AM EDT [facility] Name Value Range Interpretation Description Data Sup porting Code Source(s) Document(s ) SARS [facility] coronavirus 2 RNA This lab was ordered by [facility] and reported by [facility]. ID Date Data Source [id number] 12/27/2019 02:00:00 PM EDT [facility] Name Value Range Interpretation Description Data Sup porting Code Source(s) Document(s ) SARS [facility] coronavirus 2 RNA This lab was ordered by [facility] and reported by [facility]. Procedure
[2019-12-31] MEDS ORDERED: ACETAMINOPHEN 325 MG TABLET (FP) PO PRN (18:52)
[2019-12-31] MEDS ORDERED: LOPERAMIDE HCL 2 MG CAPSULE PO PRN (18:52)
[2019-12-31] MEDS ORDERED: P-EPHED 60MG/TRIPROLIDI 2.5MG TABLET PO PRN (18:52)
[2019-12-31] MEDS ORDERED: MAGNESIUM HYDROX 2400MG/30ML ORAL SUSPENSION 30 ML CUP PO PRN (18:52)
[2019-12-31] MEDS ORDERED: MAGNESIUM CITRATE 300 ML BOTTLE PO PRN (18:52)
[2019-12-31] MEDS ORDERED: MAG HYDROX/AL HYDROX/SIMETH 30 ML UNIT-DOSE CUP PO PRN (18:52)
[2019-12-31] MEDS ORDERED: guaiFENesin 200 MG/10 ML 10 ML UNIT-DOSE CUPS PO PRN (18:52)
[2019-12-31] MEDS ORDERED: NICOTINE POLACRILEX 2 MG GUM BUC PRN (18:52)
[2019-12-31] MEDS ORDERED: MENTHOL/PHENOL 1 EACH UD MM PRN (18:52)
[2019-12-31] MEDS ORDERED: NICOTINE 7 MG/24 HOURS TOPICAL PATCH TD PRN (18:52)
[2019-12-31] MEDS: CARBIDOPA/LEVODOPA 25/100 TABLET (FP) PO SCH (21:26)
[2019-12-31] MEDS: THIAMINE HCL 100 MG TABLET (FP) PO SCH (21:26)
[2019-12-31] MEDS ORDERED: MELATONIN 5 MG TABLETS PO SCH (22:00)
[2019-12-31] MEDS ORDERED: traZODone HCL 50 MG TABLET (FP) PO ONE (23:00)
[2019-12-31] MEDS ORDERED: PT OWN MED DRAWER 7, Y5N ONE (23:05)
[2020-01-01] MEDS ORDERED: PT OWN MED DRAWER 7, Y5N ONE ×2 (06:24→22:18)
[2020-01-01] MEDS: metFORMIN HCL 500 MG TABLET (FP) PO SCH ×2 (06:44→17:36)
[2020-01-01] MEDS: INSULIN SLIDING SCALE (NOVOLOG) 1 VIAL SQ SCH ×3 (06:46→17:36)
[2020-01-01] MEDS ORDERED: INSULIN (NOVOLOG) ASPART 100 UNITS/ML 10ML VIAL ONE ×3 (06:47→17:35)
[2020-01-01] MEDS: DOXYCYCLINE HYCLATE 100 MG TABLET PO SCH ×2 (09:55→17:36)
[2020-01-01] MEDS: CARBIDOPA/LEVODOPA 25/100 TABLET (FP) PO SCH ×2 (09:55→22:18)
[2020-01-01] MEDS ORDERED: ROSUVASTATIN CA 40 MG TABLET PO SCH (10:00)
[2020-01-01] MEDS ORDERED: DOXYCYCLINE HYCLATE 100 MG CAPSULE PO SCH (10:00)
[2020-01-01] MEDS ORDERED: CARBIDOPA/LEVODOPA 25/100 TABLET (FP) PO SCH (10:00)
[2020-01-01] MEDS ORDERED: PRENATAL VITAMINS W/ FOLIC ACID TABLET (FP) PO SCH (10:00)
[2020-01-01] MEDS: ROSUVASTATIN CA 20 MG TABLET (FP) PO SCH (10:34)
[2020-01-01] MEDS: CYCLOBENZAPRINE HCL 5 MG TABLET PO SCH (10:34)
--- NOTE | 2020-01-01 11:04 | CONSULT ---
[facility] Psychiatric Consult - Data Date of interview: 01/01/20 Admission source: [facility] Identifying data: Patient is a 59 year old single black female, mother of three, unemployed, domiciled, and is supported with [facility] benefits. This is one of multiple admissions for patient. Patient admitted to for alcohol, marijuana, and cocaine dependence. Substance Abuse History: - Smoking Cessation. Smoking history: Current every day smoker. Have you smoked in the past 12 months: Yes. Aproximately how many cigarettes per day: 4. Hx Chewing Tobacco Use: No. Initiated information on smoking cessation: Yes. 'Breaking Loose' booklet given: 12/27/19. - Substances abused. Alcohol. Substance route: Oral. Frequency: Daily. Amount used: 2 cans. Age of first use: 12. Date of last use: 12/26/19. Cocaine. Substance route: Smoking. Frequency: Daily. Amount used: varies. Age of first use: 18. Date of last use: 12/26/19. Marijuana/Hashish. Substance route: Smoking. Frequency: Daily. Amount used: 1 joint. Age of first use: 12. Date of last use: 12/23/19 Medical History: Significant for bronchial asthma, dyslipidemia, type 2 diabetes mellitus, history of cerebrovascular accident and surgeries(thyroidectomy, total hysterectomy for uterine cancer). Psychiatric History: Patient's first psychiatric contact was in 1994 after she saw an outpatient psychiatrist in [place] due to her history of depression. Patient was diagnosed with MDD and treated with zoloft. Ms. Campbell reports history of three psychiatric hospitalizations ([facility] in [facility], [facility] and [facility]). The hospitalizations at [facility] and [facility] were secondary to suicide attempts and [facility] was due to medication managment. Diagnosis of Bipolar disorder. Ms. Campbell is currently provided with outpatient psychiatric care by Dr. Horta at [facility] and states that she is prescribed Abilify 20mg + + Trazodone 300mg. States that she has not taken her medications in five days. Patient was given a one time dose of trazodone 100mg last night. At present, patient reports poor sleep but presents as mildly fatigue. Physical/Sexual Abuse/Trauma History: denies. Mental Status Exam - Mental Status Exam Alert and Oriented to: Time, Place, Person Cognitive Function: Good Patient Appearance: Well Groomed Mood: Withdrawn Affect: Mood Congruent Patient Behavior: Fatigued, Cooperative Speech Pattern: Appropriate Voice Loudness: Normal Thought Process: Goal Oriented Thought Disorder: Not Present Hallucinations: Denies Suicidal Ideation: Denies Homicidal Ideation: Denies Insight/Judgement: Poor Sleep: Poorly Appetite: Fair Muscle strength/Tone: Normal Gait/Station: Other (Ambulates with a cane.) Psychiatric Findings - Problem List (Moro 1, 2,3) (1) Alcohol dependence Current Visit: Yes Status: Chronic Qualifiers: Substance use status: uncomplicated Qualified Code(s): F10.20 - Alcohol dependence, uncomplicated (2) Cocaine dependence Current Visit: Yes Status: Chronic Qualifiers: Substance use status: uncomplicated Qualified Code(s): F14.20 - Cocaine dependence, uncomplicated (3) Bipolar II disorder Current Visit: Yes Status: Chronic - Initial Treatment Plan Initial Treatment Plan: Psychoeducation provided. Rehab in progress. Will order Abilify 20mg daily + Trazodone 100mg HS. Benefits and side effects discussed. Verbal consent given.
[2020-01-01] MEDS: ARIPiprazole 10 MG TABLET PO SCH (14:48)
[2020-01-01] MEDS: PRENATAL VITAMINS W/ FOLIC ACID TABLET (FP) PO SCH (17:36)
[2020-01-01] MEDS ORDERED: traZODone HCL 150 MG TABLET PO SCH (22:00)
[2020-01-01] MEDS: traZODone HCL 100 MG TABLET (FP) PO SCH (22:18)
[2020-01-01] MEDS: THIAMINE HCL 100 MG TABLET (FP) PO SCH (22:18)
[2020-01-02] MEDS ORDERED: PT OWN MED DRAWER 7, Y5N ONE ×4 (03:08→16:31)
[2020-01-02] MEDS: metFORMIN HCL 500 MG TABLET (FP) PO SCH ×2 (06:39→17:14)
[2020-01-02] MEDS: INSULIN SLIDING SCALE (NOVOLOG) 1 VIAL SQ SCH ×3 (06:39→17:12)
[2020-01-02] MEDS ORDERED: INSULIN (NOVOLOG) ASPART 100 UNITS/ML 10ML VIAL ONE ×4 (06:43→22:05)
[2020-01-02] MEDS ORDERED: ARIPiprazole 5 MG TABLET ONE (08:34)
[2020-01-02] MEDS: CARBIDOPA/LEVODOPA 25/100 TABLET (FP) PO SCH ×2 (09:26→21:35)
[2020-01-02] MEDS: CYCLOBENZAPRINE HCL 5 MG TABLET PO SCH (09:26)
[2020-01-02] MEDS: ROSUVASTATIN CA 20 MG TABLET (FP) PO SCH (09:26)
[2020-01-02] MEDS: ARIPiprazole 10 MG TABLET PO SCH (09:27)
[2020-01-02] MEDS: DOXYCYCLINE HYCLATE 100 MG TABLET PO SCH ×2 (09:27→18:57)
[2020-01-02] MEDS: PRENATAL VITAMINS W/ FOLIC ACID TABLET (FP) PO SCH (09:27)
--- NOTE | 2020-01-02 14:43 | EKG ---
Test Reason : Blood Pressure : / mmHG Vent. Rate : 078 BPM Atrial Rate : 078 BPM P-R Int : 138 ms QRS Dur : 068 ms QT Int : 404 ms P-R-T Axes : 060 006 042 degrees QTc Int : 460 ms NORMAL SINUS RHYTHM LOW VOLTAGE QRS CANNOT RULE OUT ANTERIOR INFARCT , AGE UNDETERMINED ABNORMAL ECG WHEN COMPARED WITH ECG OF 27-DEC-2019 21:15, NONSPECIFIC T WAVE ABNORMALITY, IMPROVED IN INFERIOR LEADS NONSPECIFIC T WAVE ABNORMALITY, IMPROVED IN LATERAL LEADS Confirmed by MD HAYLEY, JUAN MIGUEL ([id number]) on 01/02/2020 2:42:58 PM Referred By: Confirmed By:JUAN MIGUEL HARDY MD
[2020-01-02 16:02] LABS: BILIRUBIN,TOTAL 0.2 mg/dL (0.2-1); BLOOD UREA NITROGEN 8.2 mg/dL (7-18); CALCIUM 9.3 mg/dL (8.5-10.1); TOT PROT 6.4 g/dl (6.4-8.2)
[2020-01-02] MEDS: traZODone HCL 100 MG TABLET (FP) PO SCH (21:35)
[2020-01-02] MEDS: hydrOXYzine PAMOATE 25 MG CAPSULE (FP) PO PRN (21:35)
[2020-01-02] MEDS: THIAMINE HCL 100 MG TABLET (FP) PO SCH (21:35)
[2020-01-03] MEDS ORDERED: PT OWN MED DRAWER 7, Y5N ONE (03:10)
[2020-01-03] MEDS: INSULIN SLIDING SCALE (NOVOLOG) 1 VIAL SQ SCH ×3 (06:37→16:38)
[2020-01-03] MEDS: metFORMIN HCL 500 MG TABLET (FP) PO SCH ×2 (06:37→16:39)
[2020-01-03] MEDS ORDERED: INSULIN (NOVOLOG) ASPART 100 UNITS/ML 10ML VIAL ONE ×3 (06:44→16:36)
[2020-01-03] MEDS: DOXYCYCLINE HYCLATE 100 MG TABLET PO SCH ×2 (09:42→18:01)
[2020-01-03] MEDS: ROSUVASTATIN CA 20 MG TABLET (FP) PO SCH (09:42)
[2020-01-03] MEDS: PRENATAL VITAMINS W/ FOLIC ACID TABLET (FP) PO SCH (09:42)
[2020-01-03] MEDS: CYCLOBENZAPRINE HCL 5 MG TABLET PO SCH (09:43)
[2020-01-03] MEDS: ARIPiprazole 10 MG TABLET PO SCH (09:43)
[2020-01-03] MEDS: CARBIDOPA/LEVODOPA 25/100 TABLET (FP) PO SCH ×2 (09:43→21:37)
[2020-01-03] MEDS: IBUPROFEN 400 MG TABLET (FP) PO PRN ×2 (09:45→19:47)
[2020-01-03] MEDS: THIAMINE HCL 100 MG TABLET (FP) PO SCH (21:37)
[2020-01-03] MEDS: hydrOXYzine PAMOATE 25 MG CAPSULE (FP) PO PRN (21:37)
[2020-01-03] MEDS: traZODone HCL 100 MG TABLET (FP) PO SCH (21:37)
[2020-01-04] MEDS ORDERED: PT OWN MED DRAWER 7, Y5N ONE (05:10)
[2020-01-04] MEDS: metFORMIN HCL 500 MG TABLET (FP) PO SCH ×2 (06:34→16:40)
[2020-01-04] MEDS ORDERED: INSULIN (NOVOLOG) ASPART 100 UNITS/ML 10ML VIAL ONE ×4 (07:56→22:43)
[2020-01-04] MEDS: INSULIN SLIDING SCALE (NOVOLOG) 1 VIAL SQ SCH ×3 (07:57→16:41)
[2020-01-04] MEDS: PRENATAL VITAMINS W/ FOLIC ACID TABLET (FP) PO SCH (09:31)
[2020-01-04] MEDS: CYCLOBENZAPRINE HCL 5 MG TABLET PO SCH (09:31)
[2020-01-04] MEDS: ARIPiprazole 10 MG TABLET PO SCH (09:32)
[2020-01-04] MEDS: ROSUVASTATIN CA 20 MG TABLET (FP) PO SCH (09:32)
[2020-01-04] MEDS: CARBIDOPA/LEVODOPA 25/100 TABLET (FP) PO SCH ×2 (09:32→21:38)
[2020-01-04] MEDS: DOXYCYCLINE HYCLATE 100 MG TABLET PO SCH ×2 (09:32→18:20)
[2020-01-04] MEDS: hydrOXYzine PAMOATE 25 MG CAPSULE (FP) PO PRN (21:37)
[2020-01-04] MEDS: traZODone HCL 100 MG TABLET (FP) PO SCH (21:37)
[2020-01-04] MEDS: THIAMINE HCL 100 MG TABLET (FP) PO SCH (21:37)
[2020-01-05] MEDS ORDERED: PT OWN MED DRAWER 7, Y5N ONE ×3 (03:15→22:22)
[2020-01-05] MEDS: INSULIN SLIDING SCALE (NOVOLOG) 1 VIAL SQ SCH ×3 (07:14→16:50)
[2020-01-05] MEDS: metFORMIN HCL 500 MG TABLET (FP) PO SCH ×2 (07:14→16:47)
[2020-01-05] MEDS ORDERED: ARIPiprazole 5 MG TABLET ONE (08:51)
[2020-01-05] MEDS: ROSUVASTATIN CA 20 MG TABLET (FP) PO SCH (09:52)
[2020-01-05] MEDS: CYCLOBENZAPRINE HCL 5 MG TABLET PO SCH (09:52)
[2020-01-05] MEDS: DOXYCYCLINE HYCLATE 100 MG TABLET PO SCH ×2 (09:53→17:44)
[2020-01-05] MEDS: ARIPiprazole 10 MG TABLET PO SCH (09:53)
[2020-01-05] MEDS: PRENATAL VITAMINS W/ FOLIC ACID TABLET (FP) PO SCH (09:54)
[2020-01-05] MEDS: CARBIDOPA/LEVODOPA 25/100 TABLET (FP) PO SCH ×2 (09:54→21:44)
--- NOTE | 2020-01-05 11:12 | PN ---
Psychiatric Progress Note Vital Signs: Vital Signs Period Temp Pulse Resp BP Sys/De La Paz Pulse Ox Last 24 Hr 85-91 16-17 93-105/58-72 100-100 Date of Session: 01/05/20 Chief Complaint:: "I'm not sleeping at all. I take trazodone 300mg HS." HPI: Patient admitted to [facility] rehab for alcohol, marijuana, and cocaine dependence.Consultation ordered due to insomnia. ROS: Patient is ambulatory, alert +oriented X3. Current Medications: Active Medications Generic Name Dose Route Start Last Admin Trade Name Freq PRN Reason Stop Dose Admin Acetaminophen 650 mg 12/31/19 18:52 Tylenol - PO Q4H PRN FEVER Al Hydroxide/Mg Hydroxide 30 ml 12/31/19 18:52 Mylanta Oral Suspension - PO Q6H PRN DYSPEPSIA Aripiprazole 20 mg 01/01/20 11:15 01/05/20 09:53 Abilify PO 20 mg DAILY FELA Administration Carbidopa/Levodopa 1 each 12/31/19 22:00 01/05/20 09:54 Sinemet 25/100 - PO 1 each BID FELA Administration Cyclobenzaprine HCl 5 mg 01/01/20 10:00 01/05/20 09:52 Cyclobenzaprine Hcl PO 5 mg DAILY FELA Administration Doxycycline Hyclate 100 mg 01/01/20 10:00 01/05/20 09:53 Vibratab - PO 01/28/20 09:59 100 mg BID@1000,1800 FELA Administration Eucalyptus/Menthol/Phenol/Sorbitol 1 each 12/31/19 18:52 Cepastat Lozenge - MM Q4H PRN SORE THROAT Guaifenesin 10 ml 12/31/19 18:52 Robitussin - PO Q6H PRN COUGH Hydroxyzine Pamoate 25 mg 12/31/19 18:52 01/04/20 21:37 Vistaril - PO 25 mg Q6H PRN Administration AGITATION Ibuprofen 400 mg 12/31/19 18:52 01/03/20 19:47 Motrin - PO 400 mg Q6H PRN Administration Pain Level 4-6 Insulin Aspart 1 vial 01/02/20 08:11 01/05/20 07:14 Novolog Vial Sliding Scale - SQ Not Given TIDAC [facility] Protocol Loperamide HCl 4 mg 12/31/19 18:52 Imodium - PO Q6H PRN DIARRHEA Magnesium Citrate 300 ml 12/31/19 18:52 Citroma - PO Q48H PRN CONSTIPATION Magnesium Hydroxide 30 ml 12/31/19 18:52 Milk Of Magnesia - PO DAILY PRN CONSTIPATION Metformin HCl 1,000 mg 01/01/20 07:00 01/05/20 07:14 Glucophage - PO 1,000 mg BIDAC FELA Administration Nicotine 7 mg 12/31/19 18:52 Nicoderm Patch - TD DAILY PRN NICOTINE REPLACEMENT RX Nicotine Polacrilex 2 mg 12/31/19 18:52 Nicorette Gum - BUC Q2H PRN NICOTINE REPLACEMENT RX Multivit/Folic Acid/Iron 1 tab 01/01/20 17:00 01/05/20 09:54 Vitamins (Sjr) - PO 1 tab DAILY FELA Administration Pseudoephedrine/Triprolidine 1 combo 12/31/19 18:52 Actifed - PO TID PRN NASAL CONGESTION Rosuvastatin Calcium 40 mg 01/01/20 10:00 01/05/20 09:52 Crestor - PO 40 mg DAILY FELA Administration Sitagliptin Phosphate 100 mg 01/01/20 07:00 01/05/20 07:14 Januvia - PO 100 mg DAILY@0700 FELA Administration Thiamine HCl 100 mg 12/31/19 22:00 01/04/20 21:37 Vitamin B1 - PO 100 mg HS FELA Administration Trazodone HCl 100 mg 01/01/20 22:00 01/04/20 21:37 Desyrel - PO 100 mg HS FELA Administration Medication(s) Change(s): Yes. 1) Will d/c Trazodone 100mg HS. 2) Will order Trazodone 200mg HS. Current Side Effect: No Lab tests ordered: No Lab tests reviewed: Yes Provider note:: Patient reports poor sleep. States that trazodone 100mg is not effective. Patient requesting an increse in medication. [facility] pharmacy contacted at [phone]. As per pharmacy staff patient filled her prescription of Abilify 20mg + Trazodone 300mg on 12/04/19 for 30 days. Will d/c Trazodone 100mg and will order Trazodone 200mg. Titration to follow if requested by patient but at this time patient is agreeable in accepting trazodone 200mg as she has not accepted trazodone 300mg in approximately 10 days. Patient also educated on the importance of proper sleep hygiene. Benefits and side effects discussed. Verbal consent given. Total face to face time:: 25 Mental Status Exam - Mental Status Exam Alert and Oriented to: Time, Place, Person Cognitive Function: Good Patient Appearance: Well Groomed Mood: Hopeful Affect: Appropriate Patient Behavior: Appropriate, Cooperative Speech Pattern: Appropriate Voice Loudness: Normal Thought Process: Goal Oriented Thought Disorder: Not Present Hallucinations: Denies Suicidal Ideation: Denies Homicidal Ideation: Denies Insight/Judgement: Poor Sleep: Poorly Appetite: Fair Muscle strength/Tone: Normal Gait/Station: Normal Psychiatric Treatment Plan - Problem List (1) Alcohol dependence Current Visit: Yes Qualifiers: Substance use status: uncomplicated Qualified Code(s): F10.20 - Alcohol dependence, uncomplicated (2) Cocaine dependence Current Visit: Yes Qualifiers: Substance use status: uncomplicated Qualified Code(s): F14.20 - Cocaine dependence, uncomplicated (3) Bipolar II disorder Current Visit: Yes (4) Insomnia Current Visit: Yes
[2020-01-05] MEDS ORDERED: INSULIN (NOVOLOG) ASPART 100 UNITS/ML 10ML VIAL ONE ×2 (11:21→16:47)
--- NOTE | 2020-01-05 16:03 | PN ---
[facility] Progress Note Note: Patient is referred for urinary frequency and incontinence. She denies dysuria, hematuria, flank pain, fever or chills Last Vital Signs Temp Pulse Resp BP Pulse Ox 97.5 F L 85 17 105/72 99 01/04/20 06:29 01/05/20 08:30 01/05/20 08:30 01/05/20 08:30 01/05/20 14:30 PE ABD: BS x 4, NT, ND, no CVA tenderness UA sent to r/o UTI
[2020-01-05 17:45] LABS: EPI CELLS 8 /uL (0-25.1); HYALINE CASTS 0 /uL (0-3.1); URINE APPEARANCE CLEAR; URINE BACTERIA 130 /uL (0-1359); URINE BILIRUBIN NEGATIVE (NEGATIVE); URINE COLOR YELLOW; URINE GLUCOSE (UA) NEGATIVE (NEGATIVE); URINE KETONE NEGATIVE (NEGATIVE); URINE LEUK ESTERASE TRACE (NEGATIVE); URINE NITRITE NEGATIVE (NEGATIVE); URINE PROTEIN NEGATIVE (NEGATIVE); URINE RBC 3 /uL (0-23.9); URINE UROBILINOGEN 0.2 mg/dL (0.2-1.0); URINE WBC 29 /uL (0-25.8)
--- NOTE | 2020-01-05 19:42 | PN ---
[facility] Progress Note Note: Lab Review Laboratory Last Values Sodium 139 mmol/L (136-145) 01/02/20 08:20 Potassium 4.0 mmol/L (3.5-5.1) 01/02/20 08:20 Chloride 102 mmol/L (98-107) 01/02/20 08:20 Carbon Dioxide 30 mmol/L (21-32) 01/02/20 08:20 Anion Gap 8 MMOL/L (8-16) 01/02/20 08:20 BUN 8.2 mg/dL (7-18) 01/02/20 08:20 Creatinine 1.0 mg/dL (0.55-1.3) 01/02/20 08:20 Est GFR (CKD-EPI)AfAm 70.42 01/02/20 08:20 Est GFR (CKD-EPI)NonAf 60.76 01/02/20 08:20 POC Glucometer 148 UNITS (80-120) 01/05/20 16:44 Random Glucose 208 mg/dL (74-106) H 01/02/20 08:20 Calcium 9.3 mg/dL (8.5-10.1) 01/02/20 08:20 Total Bilirubin 0.2 mg/dL (0.2-1) 01/02/20 08:20 AST 21 U/L (15-37) 01/02/20 08:20 ALT 13 U/L (13-61) 01/02/20 08:20 Alkaline Phosphatase 65 U/L (45-117) 01/02/20 08:20 Total Protein 6.4 g/dl (6.4-8.2) 01/02/20 08:20 Albumin 3.0 g/dl (3.4-5.0) L 01/02/20 08:20 Urine Color Yellow 01/05/20 17:03 Urine Appearance Clear 01/05/20 17:03 Urine pH 6.0 (5.0-8.0) 01/05/20 17:03 Ur Specific [place] 1.009 (1.010-1.035) L 01/05/20 17:03 Urine Protein Negative (NEGATIVE) 01/05/20 17:03 Urine Glucose (UA) Negative (NEGATIVE) 01/05/20 17:03 Urine Ketones Negative (NEGATIVE) 01/05/20 17:03 Urine Blood Negative (NEGATIVE) 01/05/20 17:03 Urine Nitrite Negative (NEGATIVE) 01/05/20 17:03 Urine Bilirubin Negative (NEGATIVE) 01/05/20 17:03 Urine Urobilinogen 0.2 mg/dL (0.2-1.0) 01/05/20 17:03 Ur Leukocyte Esterase Trace (NEGATIVE) 01/05/20 17:03 Urine WBC (Auto) 29 /uL (0-25.8) 01/05/20 17:03 Urine RBC (Auto) 3 /uL (0-23.9) 01/05/20 17:03 Urine Casts (Auto) 0 /uL (0-3.1) 01/05/20 17:03 U Epithel Cells (Auto) 8 /uL (0-25.1) 01/05/20 17:03 Urine Bacteria (Auto) 130 /uL (0-1359) 01/05/20 17:03 UA unremarkable, oral fluid intake to be encouraged
[2020-01-05] MEDS: THIAMINE HCL 100 MG TABLET (FP) PO SCH (21:43)
[2020-01-05] MEDS: traZODone HCL 100 MG TABLET (FP) PO SCH (21:44)
[2020-01-05] MEDS ORDERED: traZODone HCL 50 MG TABLET (FP) PO SCH (22:00)
[2020-01-06] MEDS: metFORMIN HCL 500 MG TABLET (FP) PO SCH ×2 (06:27→18:09)
[2020-01-06] MEDS: INSULIN SLIDING SCALE (NOVOLOG) 1 VIAL SQ SCH ×3 (06:28→18:09)
[2020-01-06] MEDS ORDERED: INSULIN (NOVOLOG) ASPART 100 UNITS/ML 10ML VIAL ONE ×4 (06:30→22:15)
--- NOTE | 2020-01-06 08:28 | PN ---
[facility] Progress Note Note: Patient complains of sleeping poorly despite taking Trazadone 200 mg/hs. Will order Melatonin 10 mg/hs prn for insomnia
[2020-01-06] MEDS ORDERED: PT OWN MED DRAWER 7, Y5N ONE (09:20)
[2020-01-06] MEDS: ARIPiprazole 10 MG TABLET PO SCH (09:57)
[2020-01-06] MEDS: CYCLOBENZAPRINE HCL 5 MG TABLET PO SCH (09:58)
[2020-01-06] MEDS: PRENATAL VITAMINS W/ FOLIC ACID TABLET (FP) PO SCH (09:58)
[2020-01-06] MEDS: ROSUVASTATIN CA 20 MG TABLET (FP) PO SCH (09:58)
[2020-01-06] MEDS: CARBIDOPA/LEVODOPA 25/100 TABLET (FP) PO SCH ×2 (09:58→22:06)
[2020-01-06] MEDS: DOXYCYCLINE HYCLATE 100 MG TABLET PO SCH ×2 (09:59→18:12)
[2020-01-06] MEDS: THIAMINE HCL 100 MG TABLET (FP) PO SCH (22:05)
[2020-01-06] MEDS: hydrOXYzine PAMOATE 25 MG CAPSULE (FP) PO PRN (22:06)
[2020-01-06] MEDS: traZODone HCL 100 MG TABLET (FP) PO SCH (22:06)
[2020-01-06] MEDS: MELATONIN 5 MG TABLETS PO PRN (22:08)
[2020-01-07] MEDS ORDERED: PT OWN MED DRAWER 7, Y5N ONE ×5 (03:13→18:57)
[2020-01-07] MEDS: metFORMIN HCL 500 MG TABLET (FP) PO SCH ×2 (06:47→17:00)
[2020-01-07] MEDS: INSULIN SLIDING SCALE (NOVOLOG) 1 VIAL SQ SCH ×3 (06:47→17:00)
[2020-01-07] MEDS: ARIPiprazole 10 MG TABLET PO SCH (09:42)
[2020-01-07] MEDS: DOXYCYCLINE HYCLATE 100 MG TABLET PO SCH ×2 (09:42→17:02)
[2020-01-07] MEDS: PRENATAL VITAMINS W/ FOLIC ACID TABLET (FP) PO SCH (09:43)
[2020-01-07] MEDS: CARBIDOPA/LEVODOPA 25/100 TABLET (FP) PO SCH ×2 (09:43→21:49)
[2020-01-07] MEDS: CYCLOBENZAPRINE HCL 5 MG TABLET PO SCH (09:44)
[2020-01-07] MEDS: ROSUVASTATIN CA 20 MG TABLET (FP) PO SCH (10:50)
[2020-01-07] MEDS ORDERED: INSULIN (NOVOLOG) ASPART 100 UNITS/ML 10ML VIAL ONE ×2 (12:09→22:04)
[2020-01-07] MEDS: hydrOXYzine PAMOATE 25 MG CAPSULE (FP) PO PRN (21:48)
[2020-01-07] MEDS: traZODone HCL 100 MG TABLET (FP) PO SCH (21:48)
[2020-01-07] MEDS: LACTOBACILLUS ACIDOPHILUS 1 TABLET PO SCH (21:49)
[2020-01-07] MEDS: THIAMINE HCL 100 MG TABLET (FP) PO SCH (21:50)
[2020-01-08] MEDS: metFORMIN HCL 500 MG TABLET (FP) PO SCH ×2 (06:35→16:40)
[2020-01-08] MEDS: INSULIN SLIDING SCALE (NOVOLOG) 1 VIAL SQ SCH ×3 (07:07→18:22)
[2020-01-08] MEDS ORDERED: ONDANSETRON *ODT* 4 MG TABLET SL ONE (08:35)
[2020-01-08] MEDS: ARIPiprazole 10 MG TABLET PO SCH (10:58)
[2020-01-08] MEDS: LACTOBACILLUS ACIDOPHILUS 1 TABLET PO SCH ×2 (10:58→21:39)
[2020-01-08] MEDS: CYCLOBENZAPRINE HCL 5 MG TABLET PO SCH (10:58)
[2020-01-08] MEDS: ROSUVASTATIN CA 20 MG TABLET (FP) PO SCH (10:59)
[2020-01-08] MEDS: PRENATAL VITAMINS W/ FOLIC ACID TABLET (FP) PO SCH (10:59)
[2020-01-08] MEDS: CARBIDOPA/LEVODOPA 25/100 TABLET (FP) PO SCH ×2 (10:59→21:40)
[2020-01-08] MEDS: DOXYCYCLINE HYCLATE 100 MG TABLET PO SCH ×2 (11:00→18:52)
--- NOTE | 2020-01-08 15:04 | PN ---
S Progress Note Note: Patient seen this morning for vomiting. Vital Signs Period Temp Pulse Resp BP Sys/De La Paz Pulse Ox Last 24 Hr 98.2 F-98.3 F 65-86 17-20 121-127/83-83 98-100 General: No apparent distress HEENTM: Normocephalic Neck: supple ABD: +BS General: nausea, vomiting Plan: Zofran given with good effect, able to eat lunch and tolerate it.
[2020-01-08] MEDS ORDERED: INSULIN (NOVOLOG) ASPART 100 UNITS/ML 10ML VIAL ONE ×2 (16:52→22:15)
[2020-01-08] MEDS: hydrOXYzine PAMOATE 25 MG CAPSULE (FP) PO PRN (21:39)
[2020-01-08] MEDS: traZODone HCL 100 MG TABLET (FP) PO SCH (21:39)
[2020-01-08] MEDS: THIAMINE HCL 100 MG TABLET (FP) PO SCH (21:39)
[2020-01-08] MEDS: MELATONIN 5 MG TABLETS PO PRN (21:41)
[2020-01-09] MEDS ORDERED: INSULIN (NOVOLOG) ASPART 100 UNITS/ML 10ML VIAL ONE ×4 (06:31→21:52)
[2020-01-09] MEDS ORDERED: PT OWN MED DRAWER 7, Y5N ONE (06:32)
[2020-01-09] MEDS: metFORMIN HCL 500 MG TABLET (FP) PO SCH ×2 (06:33→16:41)
[2020-01-09] MEDS: INSULIN SLIDING SCALE (NOVOLOG) 1 VIAL SQ SCH ×3 (06:34→16:42)
[2020-01-09] MEDS: IBUPROFEN 400 MG TABLET (FP) PO PRN ×2 (08:33→19:31)
[2020-01-09] MEDS: ROSUVASTATIN CA 20 MG TABLET (FP) PO SCH (09:43)
[2020-01-09] MEDS: DOXYCYCLINE HYCLATE 100 MG TABLET PO SCH ×2 (09:43→21:19)
[2020-01-09] MEDS: LACTOBACILLUS ACIDOPHILUS 1 TABLET PO SCH ×2 (09:43→21:18)
[2020-01-09] MEDS: PRENATAL VITAMINS W/ FOLIC ACID TABLET (FP) PO SCH (09:44)
[2020-01-09] MEDS: ARIPiprazole 10 MG TABLET PO SCH (09:44)
[2020-01-09] MEDS: CYCLOBENZAPRINE HCL 5 MG TABLET PO SCH (09:45)
[2020-01-09] MEDS: CARBIDOPA/LEVODOPA 25/100 TABLET (FP) PO SCH ×2 (09:47→21:19)
[2020-01-09] MEDS: THIAMINE HCL 100 MG TABLET (FP) PO SCH (21:18)
[2020-01-09] MEDS: traZODone HCL 100 MG TABLET (FP) PO SCH (21:19)
[2020-01-09] MEDS: hydrOXYzine PAMOATE 25 MG CAPSULE (FP) PO PRN (21:19)
[2020-01-09] MEDS: MELATONIN 5 MG TABLETS PO PRN (21:21)
[2020-01-10] MEDS: metFORMIN HCL 500 MG TABLET (FP) PO SCH ×2 (06:45→16:45)
[2020-01-10] MEDS: INSULIN SLIDING SCALE (NOVOLOG) 1 VIAL SQ SCH ×3 (08:02→16:47)
[2020-01-10] MEDS ORDERED: ARIPiprazole 5 MG TABLET ONE (08:46)
[2020-01-10] MEDS ORDERED: PT OWN MED DRAWER 7, Y5N ONE (08:48)
[2020-01-10] MEDS: ROSUVASTATIN CA 20 MG TABLET (FP) PO SCH (09:31)
[2020-01-10] MEDS: CARBIDOPA/LEVODOPA 25/100 TABLET (FP) PO SCH ×2 (09:33→21:36)
[2020-01-10] MEDS: DOXYCYCLINE HYCLATE 100 MG TABLET PO SCH ×2 (09:33→18:59)
[2020-01-10] MEDS: ARIPiprazole 10 MG TABLET PO SCH (09:33)
[2020-01-10] MEDS: LACTOBACILLUS ACIDOPHILUS 1 TABLET PO SCH ×2 (09:33→21:35)
[2020-01-10] MEDS: PRENATAL VITAMINS W/ FOLIC ACID TABLET (FP) PO SCH (09:33)
[2020-01-10] MEDS: CYCLOBENZAPRINE HCL 5 MG TABLET PO SCH (09:33)
[2020-01-10] MEDS ORDERED: INSULIN (NOVOLOG) ASPART 100 UNITS/ML 10ML VIAL ONE ×3 (11:45→23:11)
--- NOTE | 2020-01-10 12:55 | PN ---
[facility] Progress Note Note: Patient c/o discomfort when urinating and a white discharge. On doxycycline for +RPR (allergic to PCN). General: found resting comfortably in bed : deferred at patient request neuro: no cognitive deficits MSK: full weight bearing. Vital Signs Period Temp Pulse Resp BP Sys/De La Paz Pulse Ox Last 24 Hr 98.0 F 77 20 114/75 95-99 A/P: vaginal candidiasis Will give one dose of Diflucan. Urine culture ordered Doxyclcline to d/c on 01/15
[2020-01-10] MEDS ORDERED: FLUCONAZOLE 50 MG TABLET PO ONE (13:30)
[2020-01-10] MEDS: IBUPROFEN 400 MG TABLET (FP) PO PRN (19:38)
[2020-01-10] MEDS: THIAMINE HCL 100 MG TABLET (FP) PO SCH (21:34)
[2020-01-10] MEDS: traZODone HCL 100 MG TABLET (FP) PO SCH (21:35)
[2020-01-10] MEDS: hydrOXYzine PAMOATE 25 MG CAPSULE (FP) PO PRN (21:35)
[2020-01-10] MEDS: MELATONIN 5 MG TABLETS PO PRN (21:36)
[2020-01-11] MEDS ORDERED: PT OWN MED DRAWER 7, Y5N ONE ×4 (02:40→19:13)
[2020-01-11] MEDS: metFORMIN HCL 500 MG TABLET (FP) PO SCH ×2 (06:22→17:10)
[2020-01-11] MEDS: INSULIN SLIDING SCALE (NOVOLOG) 1 VIAL SQ SCH ×3 (06:32→17:15)
[2020-01-11] MEDS ORDERED: ARIPiprazole 5 MG TABLET ONE (08:58)
[2020-01-11] MEDS: CARBIDOPA/LEVODOPA 25/100 TABLET (FP) PO SCH ×2 (09:31→21:39)
[2020-01-11] MEDS: ROSUVASTATIN CA 20 MG TABLET (FP) PO SCH (09:31)
[2020-01-11] MEDS: ARIPiprazole 10 MG TABLET PO SCH (09:31)
[2020-01-11] MEDS: CYCLOBENZAPRINE HCL 5 MG TABLET PO SCH (09:31)
[2020-01-11] MEDS: DOXYCYCLINE HYCLATE 100 MG TABLET PO SCH ×2 (09:32→17:10)
[2020-01-11] MEDS: PRENATAL VITAMINS W/ FOLIC ACID TABLET (FP) PO SCH (09:32)
[2020-01-11] MEDS: LACTOBACILLUS ACIDOPHILUS 1 TABLET PO SCH ×2 (09:32→21:38)
[2020-01-11] MEDS ORDERED: INSULIN (NOVOLOG) ASPART 100 UNITS/ML 10ML VIAL ONE (11:50)
[2020-01-11] MEDS: IBUPROFEN 400 MG TABLET (FP) PO PRN (19:26)
[2020-01-11] MEDS: THIAMINE HCL 100 MG TABLET (FP) PO SCH (21:38)
[2020-01-11] MEDS: traZODone HCL 100 MG TABLET (FP) PO SCH (21:38)
[2020-01-11] MEDS: hydrOXYzine PAMOATE 25 MG CAPSULE (FP) PO PRN (21:38)
[2020-01-12] MEDS: hydrOXYzine PAMOATE 25 MG CAPSULE (FP) PO PRN ×2 (04:46→21:24)
[2020-01-12] MEDS ORDERED: PT OWN MED DRAWER 7, Y5N ONE ×2 (05:25→08:48)
[2020-01-12] MEDS: metFORMIN HCL 500 MG TABLET (FP) PO SCH ×2 (06:08→16:54)
[2020-01-12] MEDS: INSULIN SLIDING SCALE (NOVOLOG) 1 VIAL SQ SCH ×3 (07:48→16:53)
[2020-01-12] MEDS ORDERED: INSULIN (NOVOLOG) ASPART 100 UNITS/ML 10ML VIAL ONE ×2 (07:48→16:52)
[2020-01-12] MEDS: LACTOBACILLUS ACIDOPHILUS 1 TABLET PO SCH ×2 (09:47→21:25)
[2020-01-12] MEDS: DOXYCYCLINE HYCLATE 100 MG TABLET PO SCH ×2 (09:48→18:30)
[2020-01-12] MEDS: CARBIDOPA/LEVODOPA 25/100 TABLET (FP) PO SCH ×2 (09:48→21:26)
[2020-01-12] MEDS: CYCLOBENZAPRINE HCL 5 MG TABLET PO SCH (09:48)
[2020-01-12] MEDS: ARIPiprazole 10 MG TABLET PO SCH (09:49)
[2020-01-12] MEDS: PRENATAL VITAMINS W/ FOLIC ACID TABLET (FP) PO SCH (09:49)
[2020-01-12] MEDS: ROSUVASTATIN CA 20 MG TABLET (FP) PO SCH (09:49)
[2020-01-12] MEDS: THIAMINE HCL 100 MG TABLET (FP) PO SCH (21:23)
[2020-01-12] MEDS: traZODone HCL 100 MG TABLET (FP) PO SCH (21:24)
[2020-01-13] MEDS: metFORMIN HCL 500 MG TABLET (FP) PO SCH ×2 (06:34→16:47)
[2020-01-13] MEDS: INSULIN SLIDING SCALE (NOVOLOG) 1 VIAL SQ SCH ×3 (07:11→16:47)
[2020-01-13] MEDS: DOXYCYCLINE HYCLATE 100 MG TABLET PO SCH ×2 (09:32→18:20)
[2020-01-13] MEDS: LACTOBACILLUS ACIDOPHILUS 1 TABLET PO SCH ×2 (09:32→21:20)
[2020-01-13] MEDS: CARBIDOPA/LEVODOPA 25/100 TABLET (FP) PO SCH ×2 (09:32→21:21)
[2020-01-13] MEDS: CYCLOBENZAPRINE HCL 5 MG TABLET PO SCH (09:33)
[2020-01-13] MEDS: ARIPiprazole 10 MG TABLET PO SCH (09:33)
[2020-01-13] MEDS: ROSUVASTATIN CA 20 MG TABLET (FP) PO SCH (09:33)
[2020-01-13] MEDS: PRENATAL VITAMINS W/ FOLIC ACID TABLET (FP) PO SCH (09:34)
--- NOTE | 2020-01-13 12:32 | PN ---
S Progress Note Note: Psychiatric nurse practitioner note: Patient scheduled for discharge tomorrow. A 30 day prescription of Abilify 20mg daily + Trazodone 200mg HS was electronically sent to [facility] @ [address] [place] [address].
[2020-01-13] MEDS: traZODone HCL 100 MG TABLET (FP) PO SCH (21:20)
[2020-01-13] MEDS: hydrOXYzine PAMOATE 25 MG CAPSULE (FP) PO PRN (21:20)
[2020-01-13] MEDS: THIAMINE HCL 100 MG TABLET (FP) PO SCH (21:20)
[2020-01-14] MEDS: hydrOXYzine PAMOATE 25 MG CAPSULE (FP) PO PRN (04:02)
[2020-01-14] MEDS: metFORMIN HCL 500 MG TABLET (FP) PO SCH (06:41)
[2020-01-14] MEDS: INSULIN SLIDING SCALE (NOVOLOG) 1 VIAL SQ SCH (06:42)
[2020-01-14 07:08] VITALS: BP 118/72; PULSE 82; TEMP 97.4
[2020-01-14] MEDS: DOXYCYCLINE HYCLATE 100 MG TABLET PO SCH (09:36)
[2020-01-14] MEDS: LACTOBACILLUS ACIDOPHILUS 1 TABLET PO SCH (09:36)
[2020-01-14] MEDS: CARBIDOPA/LEVODOPA 25/100 TABLET (FP) PO SCH (09:37)
[2020-01-14] MEDS: ROSUVASTATIN CA 20 MG TABLET (FP) PO SCH (09:37)
[2020-01-14] MEDS: ARIPiprazole 10 MG TABLET PO SCH (09:37)
[2020-01-14] MEDS: CYCLOBENZAPRINE HCL 5 MG TABLET PO SCH (09:38)
[2020-01-14] MEDS: PRENATAL VITAMINS W/ FOLIC ACID TABLET (FP) PO SCH (09:38)
--- NOTE | 2020-01-14 10:08 | DS ---
[facility] Rehab Discharge Summary - [facility] Rehab Discharge Summary Admission Date: 12/31/19 Discharge Date: 01/14/20 - History Present History: Alcohol dependence - Discharge Physical Exam Vital Signs: Vital Signs Temperature 97.4 F L 01/14/20 07:07 Pulse Rate 82 01/14/20 07:07 Respiratory Rate 16 01/14/20 07:07 Blood Pressure 118/72 01/14/20 07:07 O2 Sat by Pulse Oximetry (%) 100 01/14/20 07:07 ROS: DENIES SHAKES, SWEATS, ALCOHOL CRAVINGS, ANXIETY, RESTLESSNESS, CHEST PAIN, FEVER AND SOB PE: ALERT AND ORIENTED X 3 SKIN WARM AND DRY NECK SUPPLE, NO JVD CAR S1S2, RRR RESP CTA BL, NO WHEEZES OR RALES EXT FULL ROM, HAS OPEN TOE SHOE TO LEFT FOOT ( HX OF HAIRLINE FRACTURE LEFT FOOT) NO TREMORS AMB WITH MILD LIMP DENIES SI/HI A/P; ALCOHOL DEPENDENCE HTN DM HX OF LEFT FOOT HAIRLINE FX PATIENT IS MEDICALLY STABLE FOR D/C AFTERCARE ARRANGED FOR [facility] FOR 01/16/2020 - Treatment Discharge Condition: Discharge condition good, Rehabilitated safely, Responded well, Outpatient referral accepted Hospital Course: PATIENT DISCHARGED FROM REHAB TODAY FOR ALCOHOL DEPENDENCE. SHE IS MEDICALLY STABLE AND DENIES SI/HI. DURING COURSE OF TREATMENT, PATIENT ATTENDED GROUP MEETINGS, 1:1 COUNSELING SESSIONS AND EVALUATED AND TREATED BY PSYCH TEAM. AFTERCARE ARRANGED FOR [facility], APPT SCHEDULED FOR 01/16/2020. PATIENT MEDICALLY ADVISED TO FOLLOW UP WITH PCP RECOMMENDED AND TO ATTEND GROUP MEETINGS AT [facility] TO PREVENT RELAPSE. Ambulatory Orders Aripiprazole [Abilify] 20 mg PO HS 09/15/18 Doxycycline Hyclate 100 mg PO BID 28 Days #56 tablet.dr TAPIA 200 12/31/19 Melatonin 10 mg PO HS 10 Days #10 capsule MDD 10 12/31/19 Aripiprazole [Abilify -] 20 mg PO DAILY #60 tablet 01/13/20 traZODone HCL [Desyrel -] 200 mg PO HS #60 tablet 01/13/20 Carbidopa/Levodopa [Carbidopa-Levodopa 25-100 Tab] 1 each PO BID #30 tablet 01/14/20 Cyclobenzaprine HCl 5 mg PO DAILY #14 tablet 01/14/20 Doxycycline Hyclate [Vibratab -] 100 mg PO BID@1000,1800 #5 tablet 01/14/20 Metformin HCl [Glucophage] 1,000 mg PO BID 30 Days #30 tablet MDD 2 tabs 01/14/20 Rosuvastatin [Crestor -] 40 mg PO DAILY #14 tablet 01/14/20 Sitagliptin Phosphate [Januvia] 100 mg PO DAILY #14 tablet 01/14/20 - Medication Discharge Medications: Ambulatory Orders Aripiprazole [Abilify] 20 mg PO HS 09/15/18 Doxycycline Hyclate 100 mg PO BID 28 Days #56 tablet. MDD 200 12/31/19 Melatonin 10 mg PO HS 10 Days #10 capsule MDD 10 12/31/19 Aripiprazole [Abilify -] 20 mg PO DAILY #60 tablet 01/13/20 traZODone HCL [Desyrel -] 200 mg PO HS #60 tablet 01/13/20 Carbidopa/Levodopa [Carbidopa-Levodopa 25-100 Tab] 1 each PO BID #30 tablet 01/14/20 Cyclobenzaprine HCl 5 mg PO DAILY #14 tablet 01/14/20 Doxycycline Hyclate [Vibratab -] 100 mg PO BID@1000,1800 #5 tablet 01/14/20 Metformin HCl [Glucophage] 1,000 mg PO BID 30 Days #30 tablet MDD 2 tabs 01/14/20 Rosuvastatin [Crestor -] 40 mg PO DAILY #14 tablet 01/14/20 Sitagliptin Phosphate [Januvia] 100 mg PO DAILY #14 tablet 01/14/20 - Medication-Assisted Treatment (MAT) Medication-Assisted Treatment (MAT): No - Discharge Instructions Diet, activity, other medical instructions: Diet: MEDHAT,NCS Activity: AMB AD JAKE TOLERATED Other medical instructions: F/U WITH PCP RECOMMENDED - Follow-up Referral Minutes to complete discharge: 40 - AMA Did Patient Leave Against Medical Advice: No
== END 2020-01-14 09:48 | disposition home or self-care (01) | DRG 895 ==
LOC: YASAS 18:02 → Y3E 18:41
PROVIDERS: ADMIT Allergy & Immunology; ATTEND Allergy & Immunology
PROC: HZ42ZZZ Group Counseling for Substance Abuse Treatment, Cognitive-Behavioral (ICD-10-PCS; principal; 2020-01-01)
DX: F10.20 Alcohol dependence, uncomplicated (principal); F14.20 Cocaine dependence, uncomplicated; F31.81 Bipolar II disorder; F12.20 Cannabis dependence, uncomplicated; F17.210 Nicotine dependence, cigarettes, uncomplicated; E89.0 Postprocedural hypothyroidism; E11.9 Type 2 diabetes mellitus without complications; Z79.84 Long term (current) use of oral hypoglycemic drugs; I10 Essential (primary) hypertension; G47.00 Insomnia, unspecified; B37.3 Candidiasis of vulva and vagina; R11.2 Nausea with vomiting, unspecified; Z86.73 Personal history of transient ischemic attack (TIA), and cerebral infarction without residual deficits; Z85.42 Personal history of malignant neoplasm of other parts of uterus; Z90.710 Acquired absence of both cervix and uterus; Z87.81 Personal history of (healed) traumatic fracture; Z99.89 Dependence on other enabling machines and devices; Z91.5 Personal history of self-harm; Z88.0 Allergy status to penicillin
CPT/HCPCS: 36415; 80053; 81003; 82962; 87077; 87086; 93005; 93010; Q0162

== ENCOUNTER 2020-08-26 12:50 | Inpatient (IN) | payer OTHER ==
[2020-08-26 14:11] VITALS: BMI 22.8
[2020-08-26] MEDS ORDERED: MAGNESIUM CITRATE 300 ML BOTTLE PO PRN (14:30)
[2020-08-26] MEDS ORDERED: ONDANSETRON *ODT* 4 MG TABLET SL PRN (14:30)
[2020-08-26] MEDS ORDERED: BISMUTH SUBSALICYLATE 524 MG/30 ML UD PO PRN (14:30)
[2020-08-26] MEDS ORDERED: NICOTINE POLACRILEX 2 MG GUM BUC PRN (14:30)
[2020-08-26] MEDS ORDERED: PRENATAL VITAMINS W/ FOLIC ACID TABLET (FP) PO SCH (14:30)
[2020-08-26] MEDS ORDERED: IBUPROFEN 400 MG TABLET (FP) PO PRN (14:30)
[2020-08-26] MEDS ORDERED: MAGNESIUM HYDROX 2400MG/30ML ORAL SUSPENSION 30 ML CUP PO PRN (14:30)
[2020-08-26] MEDS ORDERED: METHOCARBAMOL 500 MG TABLET PO PRN (14:30)
[2020-08-26] MEDS ORDERED: MENTHOL/PHENOL 1 EACH UD MM PRN (14:30)
[2020-08-26] MEDS ORDERED: diazePAM 5 MG TABLET PO PRN (14:30)
[2020-08-26] MEDS ORDERED: ACETAMINOPHEN 325 MG TABLET (FP) PO PRN ×2 (14:30)
[2020-08-26] MEDS ORDERED: MAG HYDROX/AL HYDROX/SIMETH 30 ML UNIT-DOSE CUP PO PRN (14:30)
[2020-08-26] MEDS ORDERED: INSULIN (NOVOLOG) ASPART 100 UNITS/ML 10ML VIAL SQ ONE (15:59)
[2020-08-26] MEDS ORDERED: INSULIN (NOVOLOG) ASPART 100 UNITS/ML 10ML VIAL ONE (16:06)
[2020-08-26 17:15] LABS: ALBUMIN 3.5 g/dl (3.4-5.0); BLOOD UREA NITROGEN 7.8 mg/dL (7-18); CALCIUM 8.9 mg/dL (8.5-10.1)
[2020-08-26 17:19] LABS: BILIRUBIN,TOTAL 0.5 mg/dL (0.2-1)
[2020-08-26 17:20] LABS: HEMATOCRIT 41.2 % (32.4-45.2); HEMOGLOBIN 14.1 GM/dL (10.7-15.3); MCH 33.3 pg (25.7-33.7); MCHC 34.2 g/dl (32.0-36.0); MEAN CELL VOLUME 97.4 fl (80-96); MEAN PLT VOLUME 7.9 fl (7.5-11.1); PLATELET COUNT 332 K/MM3 (134-434); RBC 4.23 M/mm3 (3.60-5.2); WHITE BLOOD COUNT 7.3 K/mm3 (4.0-10.0)
[2020-08-26] MEDS: diazePAM 5 MG TABLET PO SCH ×2 (18:20→23:06)
[2020-08-26] MEDS: metFORMIN HCL 500 MG TABLET (FP) PO SCH (18:20)
[2020-08-26] MEDS: hydrOXYzine PAMOATE 25 MG CAPSULE (FP) PO SCH ×2 (18:21→23:05)
[2020-08-26] MEDS: MULTIVITAMINS (DAILY MVI) TABLET (FP) PO SCH (18:22)
[2020-08-26] MEDS ORDERED: MELATONIN 5 MG TABLETS PO SCH (22:00)
[2020-08-26] MEDS: THIAMINE HCL 100 MG TABLET (FP) PO SCH (23:05)
[2020-08-26] MEDS: CARBIDOPA/LEVODOPA 25/100 TABLET (FP) PO SCH (23:05)
[2020-08-27] MEDS: hydrOXYzine PAMOATE 25 MG CAPSULE (FP) PO SCH ×5 (06:27→23:16)
[2020-08-27] MEDS: metFORMIN HCL 500 MG TABLET (FP) PO SCH ×2 (06:27→17:30)
[2020-08-27] MEDS: diazePAM 5 MG TABLET PO SCH ×4 (06:27→23:15)
[2020-08-27] MEDS: CARBIDOPA/LEVODOPA 25/100 TABLET (FP) PO SCH ×2 (10:45→23:14)
[2020-08-27] MEDS: MULTIVITAMINS (DAILY MVI) TABLET (FP) PO SCH (10:45)
[2020-08-27] MEDS: ROSUVASTATIN CA 20 MG TABLET (FP) PO SCH (10:45)
[2020-08-27] MEDS: BENZTROPINE MESYLATE 1 MG TABLET PO SCH ×2 (10:47→23:14)
[2020-08-27] MEDS ORDERED: POTASSIUM CHLORIDE ORAL LIQUID 20 MEQ/15 ML PO ONE (15:40)
[2020-08-27] MEDS: traZODone HCL 50 MG TABLET (FP) PO SCH (23:14)
[2020-08-27] MEDS: ARIPiprazole 10 MG TABLET PO SCH (23:15)
[2020-08-27] MEDS: POTASSIUM CHLORIDE ORAL LIQUID 20 MEQ/15 ML PO SCH (23:15)
[2020-08-27] MEDS: THIAMINE HCL 100 MG TABLET (FP) PO SCH (23:16)
[2020-08-28] MEDS: diazePAM 5 MG TABLET PO SCH ×3 (06:47→23:15)
[2020-08-28] MEDS: hydrOXYzine PAMOATE 25 MG CAPSULE (FP) PO SCH ×5 (06:47→23:13)
[2020-08-28] MEDS: metFORMIN HCL 500 MG TABLET (FP) PO SCH ×2 (08:01→18:24)
[2020-08-28] MEDS: BENZTROPINE MESYLATE 1 MG TABLET PO SCH ×2 (09:56→23:15)
[2020-08-28] MEDS: CARBIDOPA/LEVODOPA 25/100 TABLET (FP) PO SCH ×2 (09:56→23:16)
[2020-08-28] MEDS: POTASSIUM CHLORIDE ORAL LIQUID 20 MEQ/15 ML PO SCH ×2 (09:56→23:14)
[2020-08-28] MEDS: ROSUVASTATIN CA 20 MG TABLET (FP) PO SCH (09:56)
[2020-08-28] MEDS: MULTIVITAMINS (DAILY MVI) TABLET (FP) PO SCH (09:56)
[2020-08-28 10:34] LABS: CALCIUM 8.6 mg/dL (8.5-10.1)
[2020-08-28 10:35] LABS: ALBUMIN 2.9 g/dl (3.4-5.0); BLOOD UREA NITROGEN 12.6 mg/dL (7-18)
[2020-08-28 10:38] LABS: CREATININE 0.9 mg/dL (0.55-1.3)
[2020-08-28 10:40] LABS: BILIRUBIN,TOTAL 0.4 mg/dL (0.2-1); TOT PROT 5.8 g/dl (6.4-8.2)
[2020-08-28 10:42] LABS: INR 1.04 (0.83-1.09); PROTHROMBIN TIME (PATIENT) 12.6 SEC (9.7-13.0)
[2020-08-28] MEDS: traZODone HCL 50 MG TABLET (FP) PO SCH (23:12)
[2020-08-28] MEDS: THIAMINE HCL 100 MG TABLET (FP) PO SCH (23:14)
[2020-08-28] MEDS: ARIPiprazole 10 MG TABLET PO SCH (23:39)
[2020-08-29] MEDS ORDERED: diazePAM 5 MG TABLET PO SCH (06:00)
[2020-08-29 06:07] LABS: SARS-CoV-2 NAA Not Detected (Not Detected)
[2020-08-29] MEDS: metFORMIN HCL 500 MG TABLET (FP) PO SCH ×2 (06:41→18:06)
[2020-08-29] MEDS: hydrOXYzine PAMOATE 25 MG CAPSULE (FP) PO SCH ×5 (06:43→23:05)
[2020-08-29] MEDS: ROSUVASTATIN CA 20 MG TABLET (FP) PO SCH (10:52)
[2020-08-29] MEDS: MULTIVITAMINS (DAILY MVI) TABLET (FP) PO SCH (10:52)
[2020-08-29] MEDS: CARBIDOPA/LEVODOPA 25/100 TABLET (FP) PO SCH ×2 (10:52→23:06)
[2020-08-29] MEDS: BENZTROPINE MESYLATE 1 MG TABLET PO SCH ×2 (10:53→23:06)
[2020-08-29] MEDS ORDERED: diazePAM 5 MG TABLET PO PRN (12:17)
[2020-08-29] MEDS: ARIPiprazole 10 MG TABLET PO SCH (23:05)
[2020-08-29] MEDS: traZODone HCL 50 MG TABLET (FP) PO SCH (23:06)
[2020-08-29] MEDS: THIAMINE HCL 100 MG TABLET (FP) PO SCH (23:06)
[2020-08-30] MEDS ORDERED: diazePAM 5 MG TABLET PO ONE (06:00)
[2020-08-30] MEDS: metFORMIN HCL 500 MG TABLET (FP) PO SCH (06:46)
[2020-08-30] MEDS: hydrOXYzine PAMOATE 25 MG CAPSULE (FP) PO SCH ×2 (06:46→11:42)
[2020-08-30] MEDS: BENZTROPINE MESYLATE 1 MG TABLET PO SCH (11:41)
[2020-08-30] MEDS: ROSUVASTATIN CA 20 MG TABLET (FP) PO SCH (11:42)
[2020-08-30] MEDS: CARBIDOPA/LEVODOPA 25/100 TABLET (FP) PO SCH (11:42)
[2020-08-30] MEDS: MULTIVITAMINS (DAILY MVI) TABLET (FP) PO SCH (11:42)
[2020-08-30 13:20] VITALS: BP 126/64; PULSE 68; TEMP 97.2
== END 2020-08-30 13:15 | disposition other institution (70) | DRG 897 ==
LOC: YASAS 12:50 → Y3N 15:14
PROVIDERS: ADMIT Allergy & Immunology; ATTEND Allergy & Immunology
PROC: HZ2ZZZZ Detoxification Services for Substance Abuse Treatment (ICD-10-PCS; principal; 2020-08-26)
DX: F10.230 Alcohol dependence with withdrawal, uncomplicated (principal); F14.20 Cocaine dependence, uncomplicated; F31.81 Bipolar II disorder; F19.282 Other psychoactive substance dependence with psychoactive substance-induced sleep disorder; F17.210 Nicotine dependence, cigarettes, uncomplicated; F19.24 Other psychoactive substance dependence with psychoactive substance-induced mood disorder; F41.9 Anxiety disorder, unspecified; E87.6 Hypokalemia; J45.909 Unspecified asthma, uncomplicated; E11.9 Type 2 diabetes mellitus without complications; Z79.84 Long term (current) use of oral hypoglycemic drugs; Z86.79 Personal history of other diseases of the circulatory system; Z88.0 Allergy status to penicillin
CPT/HCPCS: 36415; 80053; 82962; 85027; 85610; 86593; 86780; 87086; C9803; U0003; U0005

== ENCOUNTER 2020-08-30 13:25 | Inpatient (IN) | payer OTHER ==
[2020-08-30] MEDS ORDERED: MAGNESIUM CITRATE 300 ML BOTTLE PO PRN (14:00)
[2020-08-30] MEDS ORDERED: MENTHOL/PHENOL 1 EACH UD MM PRN (14:00)
[2020-08-30] MEDS ORDERED: NICOTINE POLACRILEX 2 MG GUM BUC PRN (14:00)
[2020-08-30] MEDS ORDERED: guaiFENesin 200 MG/10 ML 10 ML UNIT-DOSE CUPS PO PRN (14:00)
[2020-08-30] MEDS ORDERED: P-EPHED 60MG/TRIPROLIDI 2.5MG TABLET PO PRN (14:00)
[2020-08-30] MEDS ORDERED: MAGNESIUM HYDROX 2400MG/30ML ORAL SUSPENSION 30 ML CUP PO PRN (14:00)
[2020-08-30] MEDS: THIAMINE HCL 100 MG TABLET (FP) PO SCH (21:07)
[2020-08-30] MEDS: MELATONIN 5 MG TABLETS PO SCH (21:07)
[2020-08-30] MEDS: ARIPiprazole 20 MG TABLET PO SCH (21:07)
[2020-08-30] MEDS: CARBIDOPA/LEVODOPA 25/100 TABLET (FP) PO SCH (21:08)
[2020-08-30] MEDS: metFORMIN HCL 500 MG TABLET (FP) PO SCH (21:09)
[2020-08-30] MEDS: traZODone HCL 50 MG TABLET (FP) PO SCH (21:09)
[2020-08-30] MEDS: BENZTROPINE MESYLATE 0.5 MG TABLET (FP) PO SCH (21:09)
[2020-08-30] MEDS ORDERED: PATIENT'S OWN MEDICATION (NON-FORMULARY) (Metformin Hcl [Glucophage] 1,000 MG Tablet) PO SCH (22:00)
[2020-08-30] MEDS ORDERED: PATIENT'S OWN MEDICATION (NON-FORMULARY) (Trazodone Hcl [Trazodone Hcl] 150 MG Tablet) PO SCH (22:00)
[2020-08-30] MEDS: MAG HYDROX/AL HYDROX/SIMETH 30 ML UNIT-DOSE CUP PO PRN (23:42)
[2020-08-31] MEDS: metFORMIN HCL 500 MG TABLET (FP) PO SCH ×2 (06:40→21:31)
[2020-08-31] MEDS: LOPERAMIDE HCL 2 MG CAPSULE PO PRN (06:40)
[2020-08-31] MEDS: PRENATAL VITAMINS W/ FOLIC ACID TABLET (FP) PO SCH (09:34)
[2020-08-31] MEDS: CARBIDOPA/LEVODOPA 25/100 TABLET (FP) PO SCH ×2 (09:35→21:31)
[2020-08-31] MEDS: BENZTROPINE MESYLATE 0.5 MG TABLET (FP) PO SCH ×2 (09:35→21:31)
[2020-08-31] MEDS ORDERED: ROSUVASTATIN CA 40 MG TABLET PO SCH (10:00)
[2020-08-31] MEDS: ACETAMINOPHEN 325 MG TABLET (FP) PO PRN (12:13)
[2020-08-31] MEDS: hydrOXYzine PAMOATE 25 MG CAPSULE (FP) PO PRN (19:50)
[2020-08-31] MEDS: traZODone HCL 50 MG TABLET (FP) PO SCH (21:31)
[2020-08-31] MEDS: THIAMINE HCL 100 MG TABLET (FP) PO SCH (21:31)
[2020-08-31] MEDS: MELATONIN 5 MG TABLETS PO SCH (21:31)
[2020-08-31] MEDS: ARIPiprazole 20 MG TABLET PO SCH (21:32)
[2020-09-01] MEDS: metFORMIN HCL 500 MG TABLET (FP) PO SCH ×2 (06:21→21:06)
[2020-09-01] MEDS: ROSUVASTATIN CA 20 MG TABLET (FP) PO SCH (09:45)
[2020-09-01] MEDS: PRENATAL VITAMINS W/ FOLIC ACID TABLET (FP) PO SCH (09:45)
[2020-09-01] MEDS: hydrOXYzine PAMOATE 25 MG CAPSULE (FP) PO PRN (09:45)
[2020-09-01] MEDS: CARBIDOPA/LEVODOPA 25/100 TABLET (FP) PO SCH ×2 (09:46→21:07)
[2020-09-01] MEDS: LOPERAMIDE HCL 2 MG CAPSULE PO PRN (09:48)
[2020-09-01] MEDS: BENZTROPINE MESYLATE 0.5 MG TABLET (FP) PO SCH ×2 (09:48→21:09)
[2020-09-01] MEDS: LACTOBACILLUS ACIDOPHILUS 1 TABLET PO SCH (15:06)
[2020-09-01] MEDS: ARIPiprazole 10 MG TABLET PO SCH (21:07)
[2020-09-01] MEDS: traZODone HCL 50 MG TABLET (FP) PO SCH (21:07)
[2020-09-01] MEDS: MELATONIN 5 MG TABLETS PO SCH (21:08)
[2020-09-01] MEDS: THIAMINE HCL 100 MG TABLET (FP) PO SCH (21:08)
[2020-09-02] MEDS: metFORMIN HCL 500 MG TABLET (FP) PO SCH (06:13)
[2020-09-02] MEDS: LOPERAMIDE HCL 2 MG CAPSULE PO PRN (06:13)
[2020-09-02] MEDS: PRENATAL VITAMINS W/ FOLIC ACID TABLET (FP) PO SCH (09:44)
[2020-09-02] MEDS: ROSUVASTATIN CA 20 MG TABLET (FP) PO SCH (09:44)
[2020-09-02] MEDS: BENZTROPINE MESYLATE 0.5 MG TABLET (FP) PO SCH (09:45)
[2020-09-02] MEDS: CARBIDOPA/LEVODOPA 25/100 TABLET (FP) PO SCH ×2 (09:46→21:47)
[2020-09-02] MEDS: LACTOBACILLUS ACIDOPHILUS 1 TABLET PO SCH (10:45)
[2020-09-02] MEDS: traZODone HCL 50 MG TABLET (FP) PO SCH (21:47)
[2020-09-02] MEDS: THIAMINE HCL 100 MG TABLET (FP) PO SCH (21:47)
[2020-09-02] MEDS: ARIPiprazole 10 MG TABLET PO SCH (21:47)
[2020-09-02] MEDS: MELATONIN 5 MG TABLETS PO SCH (21:47)
[2020-09-02] MEDS: hydrOXYzine PAMOATE 50 MG CAPSULE (FP) PO PRN (21:48)
[2020-09-02] MEDS ORDERED: BENZTROPINE MESYLATE 1 MG TABLET PO PRN (22:00)
[2020-09-03] MEDS ORDERED: COVID-19 VAC,AD26(JANSSEN)/PF 0.5 ML IM ONE (09:00)
[2020-09-03] MEDS: CARBIDOPA/LEVODOPA 25/100 TABLET (FP) PO SCH ×2 (09:42→21:03)
[2020-09-03] MEDS: PRENATAL VITAMINS W/ FOLIC ACID TABLET (FP) PO SCH (09:42)
[2020-09-03] MEDS: LACTOBACILLUS ACIDOPHILUS 1 TABLET PO SCH (09:42)
[2020-09-03] MEDS: ROSUVASTATIN CA 20 MG TABLET (FP) PO SCH (09:42)
[2020-09-03 10:10] LABS: SARS-CoV-2 NAA Not Detected (Not Detected)
[2020-09-03] MEDS: IBUPROFEN 400 MG TABLET (FP) PO PRN (17:32)
[2020-09-03] MEDS: traZODone HCL 50 MG TABLET (FP) PO SCH (21:03)
[2020-09-03] MEDS: ARIPiprazole 10 MG TABLET PO SCH (21:03)
[2020-09-03] MEDS: THIAMINE HCL 100 MG TABLET (FP) PO SCH (21:03)
[2020-09-03] MEDS: MELATONIN 5 MG TABLETS PO SCH (21:03)
[2020-09-03] MEDS: metFORMIN HCL 500 MG TABLET (FP) PO SCH (21:04)
[2020-09-03] MEDS: hydrOXYzine PAMOATE 50 MG CAPSULE (FP) PO PRN (21:05)
[2020-09-04] MEDS: metFORMIN HCL 500 MG TABLET (FP) PO SCH ×2 (06:00→16:33)
[2020-09-04] MEDS: PRENATAL VITAMINS W/ FOLIC ACID TABLET (FP) PO SCH (10:07)
[2020-09-04] MEDS: ROSUVASTATIN CA 20 MG TABLET (FP) PO SCH (10:07)
[2020-09-04] MEDS: CARBIDOPA/LEVODOPA 25/100 TABLET (FP) PO SCH ×2 (10:09→21:44)
[2020-09-04] MEDS: LACTOBACILLUS ACIDOPHILUS 1 TABLET PO SCH (10:37)
[2020-09-04] MEDS: IBUPROFEN 400 MG TABLET (FP) PO PRN (13:03)
[2020-09-04] MEDS: MAG HYDROX/AL HYDROX/SIMETH 30 ML UNIT-DOSE CUP PO PRN (18:02)
[2020-09-04] MEDS: MELATONIN 5 MG TABLETS PO SCH (21:44)
[2020-09-04] MEDS: THIAMINE HCL 100 MG TABLET (FP) PO SCH (21:44)
[2020-09-04] MEDS: traZODone HCL 50 MG TABLET (FP) PO SCH (21:44)
[2020-09-04] MEDS: ARIPiprazole 10 MG TABLET PO SCH (21:44)
[2020-09-04] MEDS: hydrOXYzine PAMOATE 50 MG CAPSULE (FP) PO PRN (21:45)
[2020-09-05] MEDS: metFORMIN HCL 500 MG TABLET (FP) PO SCH ×2 (06:05→16:31)
[2020-09-05] MEDS: hydrOXYzine PAMOATE 50 MG CAPSULE (FP) PO PRN ×2 (10:00→21:05)
[2020-09-05] MEDS: PRENATAL VITAMINS W/ FOLIC ACID TABLET (FP) PO SCH (10:00)
[2020-09-05] MEDS: CARBIDOPA/LEVODOPA 25/100 TABLET (FP) PO SCH ×2 (10:00→21:02)
[2020-09-05] MEDS: LACTOBACILLUS ACIDOPHILUS 1 TABLET PO SCH (10:00)
[2020-09-05] MEDS: ROSUVASTATIN CA 20 MG TABLET (FP) PO SCH (10:02)
[2020-09-05] MEDS ORDERED: COLLOIDAL OATMEAL 1 BAR EACH TP PRN (13:50)
[2020-09-05] MEDS: ACETAMINOPHEN 325 MG TABLET (FP) PO PRN (13:58)
[2020-09-05] MEDS ORDERED: PT OWN MED DRAWER 7, Y5N ONE (20:19)
[2020-09-05] MEDS: ARIPiprazole 10 MG TABLET PO SCH (21:02)
[2020-09-05] MEDS: THIAMINE HCL 100 MG TABLET (FP) PO SCH (21:03)
[2020-09-05] MEDS: traZODone HCL 50 MG TABLET (FP) PO SCH (21:03)
[2020-09-05] MEDS: MELATONIN 5 MG TABLETS PO SCH (21:03)
[2020-09-06] MEDS: metFORMIN HCL 500 MG TABLET (FP) PO SCH ×2 (06:24→16:35)
[2020-09-06] MEDS: PRENATAL VITAMINS W/ FOLIC ACID TABLET (FP) PO SCH (10:37)
[2020-09-06] MEDS: hydrOXYzine PAMOATE 50 MG CAPSULE (FP) PO PRN ×2 (10:37→22:04)
[2020-09-06] MEDS: LACTOBACILLUS ACIDOPHILUS 1 TABLET PO SCH (10:37)
[2020-09-06] MEDS: ROSUVASTATIN CA 20 MG TABLET (FP) PO SCH (10:37)
[2020-09-06] MEDS: CARBIDOPA/LEVODOPA 25/100 TABLET (FP) PO SCH ×2 (10:37→22:05)
[2020-09-06] MEDS: MELATONIN 5 MG TABLETS PO SCH (22:03)
[2020-09-06] MEDS: ARIPiprazole 10 MG TABLET PO SCH (22:03)
[2020-09-06] MEDS: THIAMINE HCL 100 MG TABLET (FP) PO SCH (22:03)
[2020-09-06] MEDS: traZODone HCL 50 MG TABLET (FP) PO SCH (22:03)
[2020-09-07] MEDS: metFORMIN HCL 500 MG TABLET (FP) PO SCH ×2 (06:02→16:43)
[2020-09-07] MEDS: IBUPROFEN 400 MG TABLET (FP) PO PRN (07:06)
[2020-09-07] MEDS: CARBIDOPA/LEVODOPA 25/100 TABLET (FP) PO SCH ×2 (09:38→21:05)
[2020-09-07] MEDS: LACTOBACILLUS ACIDOPHILUS 1 TABLET PO SCH (09:38)
[2020-09-07] MEDS: PRENATAL VITAMINS W/ FOLIC ACID TABLET (FP) PO SCH (09:38)
[2020-09-07] MEDS: ROSUVASTATIN CA 20 MG TABLET (FP) PO SCH (09:38)
[2020-09-07] MEDS: ACETAMINOPHEN 325 MG TABLET (FP) PO PRN (13:12)
[2020-09-07] MEDS: MELATONIN 5 MG TABLETS PO SCH (21:03)
[2020-09-07] MEDS: THIAMINE HCL 100 MG TABLET (FP) PO SCH (21:03)
[2020-09-07] MEDS: traZODone HCL 50 MG TABLET (FP) PO SCH (21:03)
[2020-09-07] MEDS: ARIPiprazole 10 MG TABLET PO SCH (21:03)
[2020-09-07] MEDS: hydrOXYzine PAMOATE 50 MG CAPSULE (FP) PO PRN (21:04)
[2020-09-08] MEDS: metFORMIN HCL 500 MG TABLET (FP) PO SCH ×2 (06:29→16:22)
[2020-09-08] MEDS: LACTOBACILLUS ACIDOPHILUS 1 TABLET PO SCH (09:54)
[2020-09-08] MEDS: CARBIDOPA/LEVODOPA 25/100 TABLET (FP) PO SCH ×2 (09:54→21:40)
[2020-09-08] MEDS: ROSUVASTATIN CA 20 MG TABLET (FP) PO SCH (09:54)
[2020-09-08] MEDS: PRENATAL VITAMINS W/ FOLIC ACID TABLET (FP) PO SCH (09:54)
[2020-09-08] MEDS: ACETAMINOPHEN 325 MG TABLET (FP) PO PRN ×2 (11:40→21:39)
[2020-09-08] MEDS: ALBUTEROL SO4 HFA INHALER IH PRN (16:31)
[2020-09-08] MEDS: THIAMINE HCL 100 MG TABLET (FP) PO SCH (21:38)
[2020-09-08] MEDS: MELATONIN 5 MG TABLETS PO SCH (21:38)
[2020-09-08] MEDS: ARIPiprazole 10 MG TABLET PO SCH (21:39)
[2020-09-08] MEDS: traZODone HCL 50 MG TABLET (FP) PO SCH (21:39)
[2020-09-08] MEDS: hydrOXYzine PAMOATE 50 MG CAPSULE (FP) PO PRN (21:39)
[2020-09-09] MEDS: metFORMIN HCL 500 MG TABLET (FP) PO SCH ×2 (06:03→16:37)
[2020-09-09] MEDS: LOPERAMIDE HCL 2 MG CAPSULE PO PRN (06:03)
[2020-09-09] MEDS: PRENATAL VITAMINS W/ FOLIC ACID TABLET (FP) PO SCH (09:44)
[2020-09-09] MEDS: CARBIDOPA/LEVODOPA 25/100 TABLET (FP) PO SCH ×2 (09:45→21:02)
[2020-09-09] MEDS: LACTOBACILLUS ACIDOPHILUS 1 TABLET PO SCH (09:45)
[2020-09-09] MEDS: ROSUVASTATIN CA 20 MG TABLET (FP) PO SCH (09:46)
[2020-09-09] MEDS: ALBUTEROL SO4 HFA INHALER IH PRN (09:47)
[2020-09-09] MEDS: busPIRone HCL 5 MG TABLET PO SCH ×2 (14:21→21:02)
[2020-09-09] MEDS: MELATONIN 5 MG TABLETS PO SCH (21:02)
[2020-09-09] MEDS: THIAMINE HCL 100 MG TABLET (FP) PO SCH (21:02)
[2020-09-09] MEDS: traZODone HCL 50 MG TABLET (FP) PO SCH (21:02)
[2020-09-09] MEDS: ARIPiprazole 10 MG TABLET PO SCH (21:02)
[2020-09-09] MEDS: ACETAMINOPHEN 325 MG TABLET (FP) PO PRN (21:02)
[2020-09-09] MEDS: hydrOXYzine PAMOATE 50 MG CAPSULE (FP) PO PRN (21:02)
[2020-09-10] MEDS: metFORMIN HCL 500 MG TABLET (FP) PO SCH ×2 (06:11→16:48)
[2020-09-10] MEDS: ACETAMINOPHEN 325 MG TABLET (FP) PO PRN ×2 (06:11→11:35)
[2020-09-10] MEDS: busPIRone HCL 5 MG TABLET PO SCH ×3 (06:11→21:59)
[2020-09-10] MEDS: ROSUVASTATIN CA 20 MG TABLET (FP) PO SCH (10:34)
[2020-09-10] MEDS: LACTOBACILLUS ACIDOPHILUS 1 TABLET PO SCH (10:34)
[2020-09-10] MEDS: CARBIDOPA/LEVODOPA 25/100 TABLET (FP) PO SCH ×2 (10:34→21:59)
[2020-09-10] MEDS: PRENATAL VITAMINS W/ FOLIC ACID TABLET (FP) PO SCH (10:34)
[2020-09-10] MEDS: traZODone HCL 50 MG TABLET (FP) PO SCH (21:58)
[2020-09-10] MEDS: ARIPiprazole 10 MG TABLET PO SCH (21:59)
[2020-09-10] MEDS: THIAMINE HCL 100 MG TABLET (FP) PO SCH (22:00)
[2020-09-10] MEDS: MELATONIN 5 MG TABLETS PO SCH (22:00)
[2020-09-10] MEDS: hydrOXYzine PAMOATE 50 MG CAPSULE (FP) PO PRN (22:01)
[2020-09-11] MEDS: metFORMIN HCL 500 MG TABLET (FP) PO SCH ×2 (06:07→16:29)
[2020-09-11] MEDS: busPIRone HCL 5 MG TABLET PO SCH ×3 (06:07→21:04)
[2020-09-11] MEDS: ROSUVASTATIN CA 20 MG TABLET (FP) PO SCH (09:41)
[2020-09-11] MEDS: CARBIDOPA/LEVODOPA 25/100 TABLET (FP) PO SCH ×2 (09:41→21:04)
[2020-09-11] MEDS: PRENATAL VITAMINS W/ FOLIC ACID TABLET (FP) PO SCH (09:41)
[2020-09-11] MEDS: ACETAMINOPHEN 325 MG TABLET (FP) PO PRN (09:43)
[2020-09-11] MEDS: LACTOBACILLUS ACIDOPHILUS 1 TABLET PO SCH (11:13)
[2020-09-11] MEDS: ARIPiprazole 10 MG TABLET PO SCH (21:03)
[2020-09-11] MEDS: MELATONIN 5 MG TABLETS PO SCH (21:04)
[2020-09-11] MEDS: traZODone HCL 50 MG TABLET (FP) PO SCH (21:04)
[2020-09-11] MEDS: THIAMINE HCL 100 MG TABLET (FP) PO SCH (21:04)
[2020-09-11] MEDS: hydrOXYzine PAMOATE 50 MG CAPSULE (FP) PO PRN (21:05)
[2020-09-12] MEDS: metFORMIN HCL 500 MG TABLET (FP) PO SCH ×2 (06:29→16:29)
[2020-09-12] MEDS: busPIRone HCL 5 MG TABLET PO SCH ×3 (06:29→21:44)
[2020-09-12] MEDS: CARBIDOPA/LEVODOPA 25/100 TABLET (FP) PO SCH ×2 (09:47→21:44)
[2020-09-12] MEDS: PRENATAL VITAMINS W/ FOLIC ACID TABLET (FP) PO SCH (09:47)
[2020-09-12] MEDS: LACTOBACILLUS ACIDOPHILUS 1 TABLET PO SCH (09:47)
[2020-09-12] MEDS: ROSUVASTATIN CA 20 MG TABLET (FP) PO SCH (09:47)
[2020-09-12] MEDS: ACETAMINOPHEN 325 MG TABLET (FP) PO PRN ×2 (09:49→21:44)
[2020-09-12] MEDS: LOPERAMIDE HCL 2 MG CAPSULE PO PRN (10:31)
[2020-09-12] MEDS: traZODone HCL 50 MG TABLET (FP) PO SCH (21:44)
[2020-09-12] MEDS: MELATONIN 5 MG TABLETS PO SCH (21:44)
[2020-09-12] MEDS: THIAMINE HCL 100 MG TABLET (FP) PO SCH (21:44)
[2020-09-12] MEDS: ARIPiprazole 10 MG TABLET PO SCH (21:44)
[2020-09-12] MEDS: hydrOXYzine PAMOATE 50 MG CAPSULE (FP) PO PRN (21:45)
[2020-09-13] MEDS: busPIRone HCL 5 MG TABLET PO SCH ×3 (05:57→21:08)
[2020-09-13] MEDS: metFORMIN HCL 500 MG TABLET (FP) PO SCH ×2 (05:59→16:37)
[2020-09-13] MEDS ORDERED: PT OWN MED DRAWER 7, Y5N ONE ×2 (08:13→18:52)
[2020-09-13] MEDS: PRENATAL VITAMINS W/ FOLIC ACID TABLET (FP) PO SCH (09:23)
[2020-09-13] MEDS: LACTOBACILLUS ACIDOPHILUS 1 TABLET PO SCH (09:23)
[2020-09-13] MEDS: ROSUVASTATIN CA 20 MG TABLET (FP) PO SCH (09:23)
[2020-09-13] MEDS: CARBIDOPA/LEVODOPA 25/100 TABLET (FP) PO SCH ×2 (09:23→21:08)
[2020-09-13] MEDS: ACETAMINOPHEN 325 MG TABLET (FP) PO PRN ×2 (09:24→21:08)
[2020-09-13] MEDS: hydrOXYzine PAMOATE 50 MG CAPSULE (FP) PO PRN (21:07)
[2020-09-13] MEDS: traZODone HCL 50 MG TABLET (FP) PO SCH (21:07)
[2020-09-13] MEDS: THIAMINE HCL 100 MG TABLET (FP) PO SCH (21:08)
[2020-09-13] MEDS: ARIPiprazole 10 MG TABLET PO SCH (21:08)
[2020-09-13] MEDS: MELATONIN 5 MG TABLETS PO SCH (21:08)
[2020-09-14] MEDS: busPIRone HCL 5 MG TABLET PO SCH ×3 (06:18→21:39)
[2020-09-14] MEDS: metFORMIN HCL 500 MG TABLET (FP) PO SCH ×2 (06:18→16:20)
[2020-09-14] MEDS ORDERED: PT OWN MED DRAWER 7, Y5N ONE (08:33)
[2020-09-14] MEDS: PRENATAL VITAMINS W/ FOLIC ACID TABLET (FP) PO SCH (09:58)
[2020-09-14] MEDS: LACTOBACILLUS ACIDOPHILUS 1 TABLET PO SCH (09:58)
[2020-09-14] MEDS: ROSUVASTATIN CA 20 MG TABLET (FP) PO SCH (09:59)
[2020-09-14] MEDS: CARBIDOPA/LEVODOPA 25/100 TABLET (FP) PO SCH ×2 (09:59→21:39)
[2020-09-14] MEDS: ACETAMINOPHEN 325 MG TABLET (FP) PO PRN (09:59)
[2020-09-14] MEDS ORDERED: ARIPiprazole 5 MG TABLET ONE (18:25)
[2020-09-14] MEDS: THIAMINE HCL 100 MG TABLET (FP) PO SCH (21:38)
[2020-09-14] MEDS: traZODone HCL 50 MG TABLET (FP) PO SCH (21:38)
[2020-09-14] MEDS: MELATONIN 5 MG TABLETS PO SCH (21:38)
[2020-09-14] MEDS: hydrOXYzine PAMOATE 50 MG CAPSULE (FP) PO PRN (21:39)
[2020-09-14] MEDS: ARIPiprazole 10 MG TABLET PO SCH (21:39)
[2020-09-15 06:28] VITALS: TEMP 97.1
[2020-09-15] MEDS: metFORMIN HCL 500 MG TABLET (FP) PO SCH ×2 (06:29→17:03)
[2020-09-15] MEDS: busPIRone HCL 5 MG TABLET PO SCH ×3 (06:29→21:01)
[2020-09-15] MEDS: PRENATAL VITAMINS W/ FOLIC ACID TABLET (FP) PO SCH (09:48)
[2020-09-15] MEDS: CARBIDOPA/LEVODOPA 25/100 TABLET (FP) PO SCH ×2 (09:48→21:01)
[2020-09-15] MEDS: ROSUVASTATIN CA 20 MG TABLET (FP) PO SCH (09:49)
[2020-09-15] MEDS: LACTOBACILLUS ACIDOPHILUS 1 TABLET PO SCH (09:49)
[2020-09-15] MEDS: ACETAMINOPHEN 325 MG TABLET (FP) PO PRN (09:50)
[2020-09-15] MEDS: traZODone HCL 50 MG TABLET (FP) PO SCH (21:00)
[2020-09-15] MEDS: ARIPiprazole 10 MG TABLET PO SCH (21:01)
[2020-09-15] MEDS: THIAMINE HCL 100 MG TABLET (FP) PO SCH (21:02)
[2020-09-15] MEDS: MELATONIN 5 MG TABLETS PO SCH (21:02)
[2020-09-15] MEDS: hydrOXYzine PAMOATE 50 MG CAPSULE (FP) PO PRN (21:03)
[2020-09-16] MEDS: busPIRone HCL 5 MG TABLET PO SCH (06:08)
[2020-09-16] MEDS: metFORMIN HCL 500 MG TABLET (FP) PO SCH (06:08)
[2020-09-16 06:44] VITALS: BP 106/65; PULSE 61
[2020-09-16] MEDS: ROSUVASTATIN CA 20 MG TABLET (FP) PO SCH (09:34)
[2020-09-16] MEDS: CARBIDOPA/LEVODOPA 25/100 TABLET (FP) PO SCH (09:34)
[2020-09-16] MEDS: PRENATAL VITAMINS W/ FOLIC ACID TABLET (FP) PO SCH (09:34)
[2020-09-16] MEDS: LACTOBACILLUS ACIDOPHILUS 1 TABLET PO SCH (09:35)
[2020-09-16] MEDS: ALBUTEROL SO4 HFA INHALER IH PRN (09:36)
[2020-09-16] MEDS: ACETAMINOPHEN 325 MG TABLET (FP) PO PRN (09:36)
== END 2020-09-16 10:03 | disposition home or self-care (01) | DRG 895 ==
LOC: YASAS 13:25 → Y3W 13:30
PROVIDERS: ADMIT Allergy & Immunology; ATTEND Allergy & Immunology
PROC: HZ42ZZZ Group Counseling for Substance Abuse Treatment, Cognitive-Behavioral (ICD-10-PCS; principal; 2020-08-30)
DX: F10.20 Alcohol dependence, uncomplicated (principal); F14.20 Cocaine dependence, uncomplicated; F31.81 Bipolar II disorder; F19.282 Other psychoactive substance dependence with psychoactive substance-induced sleep disorder; F17.210 Nicotine dependence, cigarettes, uncomplicated; G47.00 Insomnia, unspecified; E78.00 Pure hypercholesterolemia, unspecified; E89.0 Postprocedural hypothyroidism; E11.9 Type 2 diabetes mellitus without complications; Z79.84 Long term (current) use of oral hypoglycemic drugs; K21.9 Gastro-esophageal reflux disease without esophagitis; R19.7 Diarrhea, unspecified; J45.909 Unspecified asthma, uncomplicated; Z85.42 Personal history of malignant neoplasm of other parts of uterus; Z88.0 Allergy status to penicillin; Z87.81 Personal history of (healed) traumatic fracture
CPT/HCPCS: 0031A; 36415; 82962; 83036; 86803; 91303; C9803; U0003; U0005